=== PATIENT | female | born 1975 | race American Indian/Alaskan Native ===

== ENCOUNTER → 2018-10-24 | Outpatient (CLI) | payer OTHER ==
[~2018-10-24] MED LIST: ALBU90OI INH; AMOX500 PO; ASPI81EC; Bactrim Ds Tab1 EACH PO; CEPH500 PO; CETI10 PO; CHOL10002 PO; CIPR750 PO; CITA20 PO; CYCL10 PO; Cyclobenzaprine5 MG PO; DIAZ5 PO; Desyrel50 MG; Diflucan150 MG PO; ELET40TA; FENO145 PO; FENO54 PO; FLUC200 PO; GABA300 PO; GLIP10 PO; GLIP5 PO; HYDACE10B PO; HYDACE5 PO; HYDACE7.5 PO; HYDGUAL120 PO; Humalog100 UNIT/3 SC; Humulin R500 UNIT/1 IJ; INSDET100 SQ; INSLI100I; INSR10I; INSULANI; LEVFLO500 PO; LOVA20 PO; MELO7.5; MELO7.5 PO; METCAR500 PO; METF500; METF500 PO; METF500C PO; METPRE4DP PO; MULVITMINE; Monodox100 MG PO; NAPR500 PO; Norco 5-325 Ta1 EACH PO; ONDA4ODT MM; OXYACE10 PO; OXYACE5T PO; OXYACE7.5T PO; PENVK250 PO; PENVK500 PO; PHENA200 PO; PIOG30 PO; PIOG45 PO; PRED20 PO; PREG150 PO; PROC10 PO; PROM25 PO; Percocet 10-321 EACH PO; Percocet 5-3251 EACH PO; Prednisone20 MG PO; RANI150; RANI150 PO; RXCLIN PO; RXOXYACE PO; RXPENVK250 PO; RXSULTRIDS PO; SULTRIDS PO; TIZANIDINE HCL4 MG PO; TOUJEO SOL300 UNIT/1 SC; TOUJEO SOL300 UNIT/1 SQ; TRAM50 PO; TRAZ50 PO; Ultram50 MG PO; Valium5 MG PO; Zofran Odt8 MG SL; Zofran4 MG PO; [UNRECOGNIZED DRUG - REMARK]
[2018-10-24 10:25] LABS: Source, Urine Clean Catch
[2018-10-24 10:59] LABS: Appearance, Urine Clear (Clear); Blood, Urine 2+ (Neg); Color, Urine Yellow (P-Yellow); Glucose Qualitative, Urine Neg (Neg); Ketones, Urine Neg (Neg); Leukocyte Esterase, Urine 3+ (Neg); Nitrite, Urine Pos (Neg); Protein, Urine 1+ (Neg); Specific Gravity, Urine 1.015 (1.003-1.022); Urobilinogen, Urine 1+ (Normal)
[2018-10-24 11:12] LABS: Bilirubin, Urine 1+ (Neg)
[2018-10-24 11:13] LABS: White Blood Cells, Urine 25-50 /hpf (0-5)
[2018-10-24 11:14] LABS: Bacteria Mod /hpf; Squamous Epithelial Cells Mod /hpf (Few)
== END | disposition home or self-care (01) ==
LOC: LAB SHORT 10:23 → LAB 10:23 → LAB FUT 10-24 09:50 → EDSTATUS 10-24 09:50
PROVIDERS: Internal Medicine
DX: N39.0 Urinary tract infection, site not specified (principal)
CPT/HCPCS: 81001; 87077; 87086; 87147; 87186

== ENCOUNTER 2021-12-11 09:48 | Emergency (ER) | payer OTHER ==
[~2021-12-11] VITALS: Ht 162.6 cm; Wt 132.9 kg
[2021-12-11] MEDS ORDERED: CYMBALTA30 M2 PO (11:01)
[2021-12-11] MEDS ORDERED: CARVEDILOL6.25 MG PO (11:01)
[2021-12-11] MEDS ORDERED: PEPCID20 MG PO (11:01)
[2021-12-11] MEDS ORDERED: Norco 7.5-3251 EACH PO (11:02)
[2021-12-11 11:31] LABS: Alanine Aminotransfer (ALT/SGP 41 U/L (12-78); Albumin, Blood 3.7 g/dL (3.4-5.0); Albumin/Globulin Ratio 0.9 (0.8-1.8); Alk Phos 76 U/L (50-136); Anion Gap 5 mmol/L (6-16); Aspartate Aminotrans (AST/SGOT 17 U/L (12-37); Bilirubin, Total 0.5 mg/dL (0.1-1.0); Blood Urea Nitrogen 12 mg/dL (8-24); Bun/Creatinine Ratio 21.7 (12.0-20.0); CO2, Blood 28 mmol/L (21-32); Chloride, Blood 102 mmol/L (98-108); Creatinine, Blood 0.55 mg/dL (0.40-1.00); Globulin, Blood 3.9 g/dL (2.2-4.0); Glomerular Filtration Rate >60 (60-); Glucose, Blood 277 mg/dL (70-99); Potassium, Blood 4.1 mmol/L (3.5-5.5); Sodium, Blood 135 mmol/L (136-145); Total Protein, Blood 7.6 g/dL (6.4-8.2)
== END 2021-12-11 12:33 | disposition home or self-care (01) ==
LOC: ER 09:48
PROVIDERS: Emergency Medicine
DX: I10 Essential (primary) hypertension (principal); E11.40 Type 2 diabetes mellitus with diabetic neuropathy, unspecified; J45.909 Unspecified asthma, uncomplicated; Z88.8 Allergy status to other drugs, medicaments and biological substances; Z79.899 Other long term (current) drug therapy; Z79.84 Long term (current) use of oral hypoglycemic drugs; Z79.891 Long term (current) use of opiate analgesic
CPT/HCPCS: 36415; 80053; 93005; 93010; 99283-25; A9270

== ENCOUNTER 2022-02-17 09:09 | Day surgery (SDC) | payer OTHER ==
[~2022-02-17] VITALS: Ht 162.6 cm; Wt 287.6 kg
[~2022-02-17 09:09] MED LIST changes: +CARVEDILOL6.25 MG PO; +CYMBALTA30 M2 PO; +Norco 7.5-3251 EACH PO; +PEPCID20 MG PO
[2022-02-17] MEDS ORDERED: CELE100 PO (10:23)
--- NOTE | 2022-02-17 12:27 | NUR ---
02/17/22 1227 Janae Carlson MAX, SPIDER, WEDGE, GEL UDNER BELTS AND ARM, SEAT BELTS X 2. POSITION VERIFIED BY SURGEON.
--- NOTE | 2022-02-17 13:42 | NUR ---
02/17/22 1342 PAULO TEMPLETON PT O2 SATS DROPPED TO 85% ON ROOMAIR POST OPERATIVELY. PT GIVEN 3L O2 VIA NASAL CANULA IN STEP DOWN/ EDUACATED AND IMPLEMENTED INCENTIVE SPIROMETER/ DUONEB TREATMENT GIVEN PRIOR TO DC. PT UP TO BATHROOM FOR BM WITH SBA BY CARYN KAUR. PT CHEM BG READING WAS 365 1257 AND REGULAR INSULIN GIVEN 7U SQ BY CARYN KAUR/TCR/ ACO
== END 2022-02-17 14:05 | disposition home or self-care (01) ==
LOC: ORSCSDS 09:09
PROVIDERS: Orthopaedic Surgery
PROC: 0RBK4ZZ Excision of Left Shoulder Joint, Percutaneous Endoscopic Approach (ICD-10-PCS; principal; 2022-02-17 10:45)
DX: M75.112 Incomplete rotator cuff tear or rupture of left shoulder, not specified as traumatic (principal); M75.42 Impingement syndrome of left shoulder; M71.9 Bursopathy, unspecified; M75.22 Bicipital tendinitis, left shoulder; I10 Essential (primary) hypertension; E78.5 Hyperlipidemia, unspecified; E11.9 Type 2 diabetes mellitus without complications; Z87.891 Personal history of nicotine dependence; Z79.84 Long term (current) use of oral hypoglycemic drugs; Z79.899 Other long term (current) drug therapy; E66.01 Morbid (severe) obesity due to excess calories; Z68.42 Body mass index [BMI] 45.0-49.9, adult
CPT/HCPCS: 82947; J0171; J0690; J1100; J1815; J2250; J2370; J2405; J2704; J2765; J3010; J7120

== ENCOUNTER 2025-01-14 12:27 | Inpatient (IN) | payer OTHER ==
[~2025-01-14] VITALS: Ht 162.6 cm; Wt 139.5 kg
[2025-01-14] VITALS (14 sets, daily range): BP systolic 138–176; BP diastolic 77–111
[~2025-01-14 12:27] MED LIST changes: +CELE100 PO
[2025-01-14] MEDS ORDERED: Ondansetron HCl 2 MG / ML 2ML Vial IV ONE (13:15)
[2025-01-14 13:23] LABS: Calcium, Ionized (POC) 1.13 mmol/L (1.10-1.46); Chloride (POC) 100 mmol/L (98-108); Creatinine (POC) 0.7 mg/dL (0.6-1.0); Glucose (ISTAT POC) 258 mg/dL (70-99); Hemoglobin (POC) 15.3 g/dL (12.0-16.0); Potassium (POC) 4.7 mmol/L (3.5-5.5); Sodium (POC) 138 mmol/L (135-148); Total CO2 (POC) 29 mmol/L (21-32)
[2025-01-14 13:23] LABS: BASOPHILS ABSOLUTE AUTO 0.08 K/mm3 (0.00-0.23); BASOPHILS PERCENT AUTO 1 % (0-2); EOSINOPHILS ABSOLUTE AUTO 0.38 K/mm3 (0.00-0.68); EOSINOPHILS PERCENT AUTO 3 % (0-6); Hematocrit 44.2 % (33.0-51.0); Hemoglobin 14.9 g/dL (11.5-16.0); IMMATURE GRAN PERCENT AUTO 1 % (0-1); LYMPHOCYTES ABSOLUTE AUTO 1.89 K/mm3 (0.84-5.20); LYMPHOCYTES PERCENT AUTO 16 % (21-46); MONOCYTES ABSOLUTE AUTO 0.69 K/mm3 (0.16-1.47); MONOCYTES PERCENT AUTO 6 % (4-13); Mean Corpuscular HGB 31.1 pg (26.0-34.0); Mean Corpuscular HGB Conc 33.7 g/dL (31.5-36.5); Mean Corpuscular Volume 92 fL (80-100); Mean Platelet Volume 9.3 fL (9.1-12.4); NEUTROPHILS ABSOLUTE AUTO 8.46 K/mm3 (1.96-9.15); NEUTROPHILS PERCENT AUTO 73 % (41-73); Platelet Count 309 K/mm3 (150-400); RDW Coefficient Variation 12.8 % (11.7-14.2); RDW Standard Deviation 43.2 fL (35.1-46.3); Red Blood Cell Count 4.79 M/mm3 (3.80-5.20)
[2025-01-14] MEDS ORDERED: Heparin Sodium 1000 Units/ML 10ML MDV ONE ×2 (13:31→14:05)
[2025-01-14] MEDS ORDERED: Verapamil HCL 2.5 MG/ML 2ML Injection ONE (13:31)
[2025-01-14] MEDS ORDERED: NS 250 ML IV ONE (13:31)
[2025-01-14] MEDS ORDERED: NS 1,000 ML IV ONE ×2 (13:31→13:33)
[2025-01-14] MEDS ORDERED: FentaNYL Citrate 50 MCG/ML 2 ML Injection ONE (13:32)
[2025-01-14] MEDS ORDERED: Nitroglycerin 2 MG/20 ML BTL ONE (13:32)
[2025-01-14] MEDS ORDERED: Midazolam HCl 1MG / ML 2ML Vial ONE (13:33)
[2025-01-14 13:40] LABS: Albumin, Blood 3.3 g/dL (3.4-5.0); Albumin/Globulin Ratio 0.9 (0.8-1.8); Bilirubin, Total 0.6 mg/dL (0.1-1.0); Bun/Creatinine Ratio 26.7 (12.0-20.0); Calcium, Blood 8.7 mg/dL (8.5-10.1); Creatinine, Blood 0.52 mg/dL (0.40-1.00); Globulin, Blood 3.8 g/dL (2.2-4.0); Potassium, Blood 4.5 mmol/L (3.5-5.5); Total Protein, Blood 7.1 g/dL (6.4-8.2)
[2025-01-14] MEDS ORDERED: Ondansetron HCl 2 MG / ML 2ML Vial ONE (13:44)
[2025-01-14] MEDS ORDERED: FLU VACC TS2024-25(6MOS UP)/PF 45 MCG/0.5 ML SYRINGE IM ONE (13:45)
[2025-01-14] MEDS ORDERED: Ticagrelor 90 MG TABLET PO ONE ×2 (14:40→18:17)
[2025-01-14] MEDS ORDERED: PIOG30 PO (15:23)
[2025-01-14] MEDS ORDERED: DOTTI1 EA18 TD (15:25)
[2025-01-14] MEDS ORDERED: HYDROcodone 7.5-APAP 325 TAB PO PRN (15:45)
[2025-01-14] MEDS ORDERED: Losartan Potassium 25 MG Tab PO SCH (16:00)
[2025-01-14] MEDS ORDERED: DULoxetine HCL 60 MG Capsule DR PO SCH (16:00)
[2025-01-14] MEDS ORDERED: Insulin Human Lispro 100 Units/ML 3ML Syringe SC SCH (16:30)
[2025-01-14] MEDS ORDERED: MetFORMIN HCl 500 mg PO SCH (17:00)
--- NOTE | 2025-01-14 18:09 | NUR ---
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 ALERT AND ORIENTED X4. SBA TRANSFER TO BED. HISTORY OF NEUROPATHY. INTERMIT BACK PAIN, HISTORY OF FIBROMYALGIA. HOME PAIN MEDICATIONS ORDERED. TELE SHOWING SINUS RHYTHM WITH HR 70-80'S. DENIES CHEST PAIN/PRESSURE/PALPITATIONS. SBP 140-160'S. RIGHT RADIAL SITE SOFT AND NONTENDER. THIS RN EDUCATED ON RADIAL PRECAUTIONS. POST VITAL SIGNS STABLE. TR BEING DEFLATED PER ORDERS. NO EDEMA NOTED. IV SALINE LOCKED. ON ROOM AIR, LUNG SOUNDS CLEAR AND DIM IN BASES. DENIES SOB/COUGH. EVEN AND UNLABORED RESPIRATIONS. BOWEL TONES PRESENT DENIES ABDOMINAL PAIN/NAUSEA. ACHS BLOOD SUGARS IN PLACE. UP TO BATHROOM WITH SBA. FAMILY AT BEDSIDE AND UPDATED ON PLAN OF CARE. DR. GOMEZ TO BEDSIDE AND THIS RN PRESENT FOR MD ROUNDING. THIS RN UPDATED DR. GOMEZ ON COMPLETED MED REC.
[2025-01-14] MEDS ORDERED: Aspirin 81 MG Chew PO ONE (18:17)
[2025-01-14] MEDS ORDERED: Heparin Sodium,Porcine 5,000 UNIT/0.5 ML SDV SC ONE (18:17)
--- NOTE | 2025-01-14 20:20 | NUR ---
TR SITE RECOVERED WNL. NO DRAINAGE, SWELLING OR PAIN PRESENT. TEGADERM PLACED OVER SITE FOLLOWED BY ARM BOARD.
[2025-01-14] MEDS ORDERED: HyDROXyzine HCl 25 MG Tab PO ONE (20:33)
[2025-01-14] MEDS ORDERED: Metoprolol Tartrate 25 MG Tab PO SCH (21:00)
[2025-01-14] MEDS ORDERED: Atorvastatin 40 MG Tab PO SCH (21:00)
[2025-01-14] MEDS ORDERED: GlipiZIDE 5 MG Tab PO SCH (21:00)
[2025-01-14] MEDS ORDERED: Famotidine 20 MG Tab PO SCH (21:00)
[2025-01-14] MEDS ORDERED: Ticagrelor 90 MG TABLET PO SCH (21:00)
--- NOTE | 2025-01-15 01:15 | NUR ---
SHIFT SUMMARY PT HAD SOME COMPLAINTS WITH ANXIETY, ATARAX GIVEN WITH GOOD EFFECT PER PT. PT HAD A SHORT COMPLAINT OF CHEST PAIN THAT RESOLVED WITHIN A FEW MINUTES. EKG COMPLETED. NO ST ELEVATIONS SEEN. RADIAL SITE STIL CDI.
[2025-01-15 03:14] VITALS: BP 143/73
[2025-01-15 04:32] LABS: Anion Gap 8 mmol/L (3-11); Blood Urea Nitrogen 18 mg/dL (8-24); Bun/Creatinine Ratio 33.8 (12.0-20.0); CHOL/HDL RATIO 4.4; CO2, Blood 28 mmol/L (21-32); Calcium, Blood 8.8 mg/dL (8.5-10.1); Chloride, Blood 103 mmol/L (98-108); Cholesterol 159 mg/dL (50-200); Creatinine, Blood 0.53 mg/dL (0.40-1.00); Glomerular Filtration Rate 113 (60-); Glucose, Blood 183 mg/dL (70-99); HDL Cholesterol 36 mg/dL (>39); LDL/HDL RATIO 2.5; Low Density Lipoprotein Chol 90 mg/dL (0-110); Potassium, Blood 3.9 mmol/L (3.5-5.5); Sodium, Blood 135 mmol/L (136-145); Triglycerides 163 mg/dL (30-160); Very Low Density Lipoprot Chol 32 mg/dL (6-32)
[2025-01-15 07:37] VITALS: BP 146/80
[2025-01-15] MEDS ORDERED: Heparin Sodium 5000 Units/ML 1ML MDV SC SCH (09:00)
[2025-01-15] MEDS ORDERED: Pioglitazone HCl 15 MG Tab PO SCH (09:00)
[2025-01-15] MEDS ORDERED: Losartan Potassium 50 MG Tab PO SCH (09:00)
[2025-01-15] MEDS ORDERED: Aspirin 81 MG Chew PO SCH (09:00)
[2025-01-15] MEDS ORDERED: AmLODIPine Besylate 5 MG Tab PO SCH (10:00)
[2025-01-15 11:01] VITALS: BP 130/83
[2025-01-15 15:34] VITALS: BP 137/77
--- NOTE | 2025-01-15 17:09 | NUR ---
SHIFT SUMMARY PT REMAINS ALERT AND ORIENTED. BP STABLE. HR REMAINS NSR. PT DENIES CP ALL SHIFT. RIGHT RADIAL SITE WNL. ARM BOARD IN PLACE AND PT FOLLOWING DIRECTIONS WITH RESTRICTIONS. PT TEARFUL THIS SHIFT ABOUT NOT DISCHARGING. PT EDUCATED ON IMPORTANCE OF STAYING AND VERBALIZES UNDERSTANDING. PT INDEPENDENT UP TO THE BATHROOM NEEDED. WILL REPORT OFF TO ONCOMING RN
--- NOTE | 2025-01-15 19:33 | NUR ---
ASSUMPTION OF CARE ASSUMED PT'S CARE AT 1900,BEDSIDE REPORT COMPLETED.PT'S AND OTHER FAMILY MEMBERS AT BEDSIDE.PLAN OF CARE REVIEWED.PT DENIES CHEST PAIN,DENIES GENERALIZED PAIN,DENIES SOB,DENIES NEEDS AT THIS TIME.CALL LIGHT AND PT'S ITEMS WITHIN REACH,WILL CONTINUE TO MONITOR.
[2025-01-15 20:46] VITALS: BP 129/80
[2025-01-15] MEDS ORDERED: Atorvastatin 40 MG Tab PO SCH (21:00)
[2025-01-16 00:18] VITALS: BP 139/81
[2025-01-16 04:20] VITALS: BP 134/74
--- NOTE | 2025-01-16 06:40 | NUR ---
PT HAS BEEN SLEEPING MOST OF THE NIGHT,GETTING UP INDEPENDENTLY TO USE THE BATHROOM.PT'S SPOUSE STAYED THE NIGHT.NO C/O CHEST PAIN/SOB.RIGHT RADIAL ACCESS SITE CDI WITH STRONG PULSE.PT DENIES PAIN,DENIES NEEDS AT THIS TIME.CALL LIGHT AND PT'S ITEMS WITHIN REACH.WILL GIVE REPORT TO DAYSHIFT NURSE FOR CONTINUITY OF CARE.
[2025-01-16 07:20] VITALS: BP 118/87
--- NOTE | 2025-01-16 08:10 | NUR ---
Pt is alert, oriented and frequently saying that she is ready to go home, strongly would like to be discharged. She denies chest pain/pressure/discomfort/dyspnea. Ambulatory frequently around the room, without any sytmptoms. Vital signs are stable. Right wrist arterial access site is WNL. is at the beside. No needs voiced at this time.
[2025-01-16] MEDS ORDERED: ASPI81CH PO (09:51)
[2025-01-16] MEDS ORDERED: AMLODIPINE BES2.5 MG PO (09:51)
[2025-01-16] MEDS ORDERED: LOSA50 PO (09:51)
[2025-01-16] MEDS ORDERED: LIPITOR80 MG PO (09:51)
[2025-01-16] MEDS ORDERED: TICA90TA PO (09:52)
[2025-01-16] MEDS ORDERED: METO25 PO (09:52)
--- NOTE | 2025-01-16 10:37 | NUR ---
1010 Discharge instructions were reviewed with the patient. Medication changes, including new prescriptions, PCP followup and diagnosis and interventional education was completed and provided to the patient in written form. She said that she had no questions. at bedside. Pt declined the wheelchair to private vehicle, stated that she wanted to walk out.
== END 2025-01-16 10:20 | disposition home or self-care (01) | DRG 281 ==
LOC: ER 12:27 → PCU 12:28 → ER 13:19 → PCU 13:19 → ICUE 13:19 → PCU 13:19 → ICUE 14:27 → PCU 14:42 → ICUE 14:42 → PCU 14:42
PROVIDERS: Emergency Medicine; Internal Medicine; ADMIT Internal Medicine
PROC: B2111ZZ Fluoroscopy of Multiple Coronary Arteries using Low Osmolar Contrast (ICD-10-PCS; principal; 2025-01-14)
DX: I21.29 ST elevation (STEMI) myocardial infarction involving other sites (principal); Z68.43 Body mass index [BMI] 50.0-59.9, adult; I10 Essential (primary) hypertension; I25.10 Atherosclerotic heart disease of native coronary artery without angina pectoris; G89.29 Other chronic pain; M54.9 Dorsalgia, unspecified; E78.5 Hyperlipidemia, unspecified; E66.01 Morbid (severe) obesity due to excess calories; E11.65 Type 2 diabetes mellitus with hyperglycemia; Z88.8 Allergy status to other drugs, medicaments and biological substances; Z79.1 Long term (current) use of non-steroidal anti-inflammatories (NSAID); Z79.84 Long term (current) use of oral hypoglycemic drugs; Z79.891 Long term (current) use of opiate analgesic; Z87.891 Personal history of nicotine dependence
CPT/HCPCS: 36415; 76937; 80047; 80048; 80053; 80061; 82947; 84484; 85014; 85025; 93005; 93010; 93306; 93454; 99152; 99153; 99285-25; A9270; C1769; C1887; C1894; J1644; J2250; J2405; J3010; J7030; J7050; Q9967

== ENCOUNTER 2025-01-21 19:24 | Inpatient (IN) | payer OTHER ==
[~2025-01-21] VITALS: Ht 162.6 cm; Wt 125.8 kg
[~2025-01-21 19:24] MED LIST changes: +AMLODIPINE BES2.5 MG PO; +ASPI81CH PO; +DOTTI1 EA18 TD; +Etomidate 2MG / ML 10ML Vial IV ONE; +Ketamine HCl 100 MG / ML 5ML Vial XX ONE; +LIPITOR80 MG PO; +LOSA50 PO; +METO25 PO; +Midazolam HCl 1MG / ML 2ML Vial XX ONE; +Phenylephrine HCl 100 MCG/ML-NS 10MLSYR (1MG/10ML) IV ONE; +Propofol 10mg/ml 20 ml Vial (Procedural) IV ONE; +Rocuronium Bromide 10 MG/ML 5ML Injection IV ONE; +TICA90TA PO
[2025-01-21 19:51] LABS: Base Excess Venous -1.8 mmol/L; Bicarbonate Venous 22.2 mmol/L (24.0-30.0); PCO2 Venous 48.9 mmHg (38-42); pH Blood Venous 7.31 (7.34-7.37)
[2025-01-21 20:03] LABS: Hematocrit 44.9 % (33.0-51.0); Mean Corpuscular HGB 30.7 pg (26.0-34.0); Mean Corpuscular HGB Conc 35.6 g/dL (31.5-36.5); Mean Corpuscular Volume 86 fL (80-100); Mean Platelet Volume 9.7 fL (9.1-12.4); Platelet Count 301 K/mm3 (150-400); RDW Coefficient Variation 12.8 % (11.7-14.2); RDW Standard Deviation 40.5 fL (35.1-46.3); Red Blood Cell Count 5.22 M/mm3 (3.80-5.20); White Blood Cell Count 11.37 K/mm3 (4.00-11.30)
[2025-01-21] MEDS ORDERED: CefTRIAXone Sodium 1,000 MG in NS 100 ML IV ONE (20:05)
[2025-01-21] MEDS ORDERED: Azithromycin 500 MG in NS 250 ML IV ONE (20:05)
[2025-01-21 20:19] LABS: D-Dimer, Quantitative 2.69 mg/L FEU (0.00-0.52); International Normalized Ratio 1.12; Prothrombin Time Results 11.9 Sec (9.7-11.5)
[2025-01-21 20:20] LABS: Albumin, Blood 2.6 g/dL (3.4-5.0); Albumin/Globulin Ratio 0.5 (0.8-1.8); Bilirubin, Total 0.9 mg/dL (0.1-1.0); Bun/Creatinine Ratio 26.9 (12.0-20.0); Calcium, Blood 8.1 mg/dL (8.5-10.1); Creatinine, Blood 0.93 mg/dL (0.40-1.00); Globulin, Blood 4.9 g/dL (2.2-4.0); Potassium, Blood 3.3 mmol/L (3.5-5.5); Total Protein, Blood 7.5 g/dL (6.4-8.2)
[2025-01-21 20:23] LABS: BAND PERCENT MAN 35 % (0-8); BASOPHILS PERCENT MAN 0 % (0-2); EOSINOPHILS PERCENT MAN 0 % (0-6); LYMPHOCYTES % ATYPICAL MANUAL 1 % (0-0); LYMPHOCYTES ABSOLUTE MAN 0.56 K/mm3 (0.84-5.20); LYMPHOCYTES PERCENT MAN 4 % (21-46); MONOCYTES ABSOLUTE MAN 0.79 K/mm3 (0.16-1.47); MONOCYTES PERCENT MAN 7 % (4-13); SEG NEUTROPHILS PERCENT MAN 53 % (41-73); TOTAL CELLS COUNTED 100
[2025-01-21 20:32] LABS: Influenza B, PCR NEGATIVE (NEGATIVE); Resp Syncytial Virus, PCR NEGATIVE (NEGATIVE); SARS-Cov-2 (COVID-19) PCR, MMC NEGATIVE (NEGATIVE)
[2025-01-21] MEDS ORDERED: Ondansetron HCl 2 MG / ML 2ML Vial IV ONE (20:40)
[2025-01-21] MEDS ORDERED: Lactated Ringer's 1,000 ML IV ONE (20:55)
[2025-01-21] MEDS ORDERED: NS 1,000 ML IV SCH (21:25)
[2025-01-21] MEDS ORDERED: Potassium Chloride 40 MEQ in NS 250 ML IV ONE (21:30)
[2025-01-21] MEDS ORDERED: HYDROcodone 7.5-APAP 325 TAB PO PRN (21:30)
[2025-01-21] MEDS ORDERED: FLU VACC TS2024-25(6MOS UP)/PF 45 MCG/0.5 ML SYRINGE IM ONE (21:30)
[2025-01-21] MEDS ORDERED: Insulin Glargine-Yfgn 100 Unit/mL 3 ML SYR SC STA (21:37)
[2025-01-21] MEDS ORDERED: NS 1,000 ML IV ONE (21:45)
[2025-01-21] MEDS ORDERED: Lactobacil 2-S.Thermo-Bifido 1 1 Cap PO SCH (22:00)
[2025-01-21] MEDS ORDERED: Oseltamivir Phosphate 75 MG Cap PO SCH (22:00)
[2025-01-21] MEDS ORDERED: MethylPREDNISolone Sod Succ 125 MG Vial IV SCH (22:00)
[2025-01-21] MEDS ORDERED: LORazepam 2 MG/ML 1ML Injection IV ONE (22:05)
[2025-01-21] MEDS ORDERED: Furosemide 10 MG/ML 10ML Vial IV ONE (22:50)
[2025-01-21] MEDS ORDERED: dexmedeTOMIDine 100 ML IV SCH (22:55)
[2025-01-21 23:10] LABS: Base Excess Venous -0.2 mmol/L; Bicarbonate Venous 21.9 mmol/L (24.0-30.0); PCO2 Venous 64.4 mmHg (38-42); pH Blood Venous 7.24 (7.34-7.37)
[2025-01-22] VITALS (88 sets, daily range): BP systolic 85–184; BP diastolic 52–109
[2025-01-22] MEDS ORDERED: propofoL 100 ML IV PRN (01:15)
[2025-01-22] MEDS ORDERED: propofoL 100 ML IV ONE (01:16)
[2025-01-22 01:33] LABS: Source, Urine Foley catheter
[2025-01-22 01:57] LABS: Appearance, Urine Hazy (Clear); Bilirubin, Urine Neg (Neg); Blood, Urine 5+ (Neg); Color, Urine Yellow (P-Yellow); Glucose Qualitative, Urine 4+ (Neg); Ketones, Urine Neg (Neg); Leukocyte Esterase, Urine Neg (Neg); Nitrite, Urine Pos (Neg); Protein, Urine 4+ (Neg); Urobilinogen, Urine NORM (Normal)
[2025-01-22 02:14] LABS: Amorphous Mod (0-Heavy); Bacteria Mod /hpf; Red Blood Cells, Urine 0-2 /hpf (0-2); Squamous Epithelial Cells Few /hpf (Few); White Blood Cells, Urine 0-2 /hpf (0-5)
[2025-01-22 02:18] LABS: Hematocrit 44.2 % (33.0-51.0); Hemoglobin 15.4 g/dL (11.5-16.0); Mean Corpuscular HGB 30.7 pg (26.0-34.0); Mean Corpuscular HGB Conc 34.8 g/dL (31.5-36.5); Mean Corpuscular Volume 88 fL (80-100); Mean Platelet Volume 9.6 fL (9.1-12.4); Platelet Count 299 K/mm3 (150-400); RDW Coefficient Variation 12.9 % (11.7-14.2); RDW Standard Deviation 42.2 fL (35.1-46.3); Red Blood Cell Count 5.01 M/mm3 (3.80-5.20); White Blood Cell Count 5.37 K/mm3 (4.00-11.30)
[2025-01-22 02:35] LABS: Bun/Creatinine Ratio 22.3 (12.0-20.0); Calcium, Blood 7.9 mg/dL (8.5-10.1); Creatinine, Blood 1.21 mg/dL (0.40-1.00); Potassium, Blood 3.3 mmol/L (3.5-5.5)
[2025-01-22 03:36] LABS: PCO2 Arterial 58.9 mmHg (35-45); PO2 Arterial 62.1 mmHg (80-100); pH Blood Arterial 7.25 (7.35-7.45)
[2025-01-22] MEDS ORDERED: Hydrogen Peroxide 1.5 % Solution MT SCH (04:00)
[2025-01-22] MEDS ORDERED: Acetaminophen 325 MG TABLET PO PRN (05:05)
[2025-01-22] MEDS ORDERED: Piperacillin/Tazobactam Sod 4.5 GM in NS 100 ML IV SCH (05:52)
[2025-01-22] MEDS ORDERED: Vancomycin HCL 2,500 MG in NS 500 ML IV ONE (06:05)
[2025-01-22] MEDS ORDERED: Insulin Human Lispro 100 Units/ML 3ML Syringe SC SCH ×3 (07:30)
[2025-01-22] MEDS ORDERED: Cetylpyridinium Chloride 1 EA MISC MT SCH (08:00)
--- NOTE | 2025-01-22 08:12 | NUR ---
START OF SHIFT THIS NURSE ASSUMED CARE AT APPROXIMATELY 0700. PT IS SEDATED AND INTUBATED. AND SON CAME TO BEDSIDE AND REPORTED NO ONE CALL OR UPDATED ON THE ESCELATION OF CARE. FAMILY UPDATED ON PT CONDITION AND NAME AND NUMBERS WRITTEN ON THE BOARD FOR LAKESHIA ( [phone]) AND SON (ROBERTO [phone]). FAMILY REPORTED PT HAD BELONGINGS AND PHONE DURING ADMISSION. THIS NURSE CALLED ER AND THEY REPORTED TO BELONGINGS, NO BELONGINGS SEEN IN ROOM DURING START OF SHIFT. PT CURRENTLY INTUBATED AND SEDATED ON PROPOFOL. PT FEBRILE WITH A TEMP OF 103 AT THE START OF SHIFT. WILL CONTINUE WITH THE PLAN OF CARE.
[2025-01-22] MEDS ORDERED: Enoxaparin 40 MG/0.4 ML SYR SC SCH (09:00)
[2025-01-22] MEDS ORDERED: AmLODIPine Besylate 5 MG Tab PO SCH (09:00)
[2025-01-22] MEDS ORDERED: Atorvastatin 40 MG Tab PO SCH (09:00)
[2025-01-22] MEDS ORDERED: DULoxetine HCL 60 MG Capsule DR PO SCH (09:00)
[2025-01-22] MEDS ORDERED: Aspirin 81 MG Chew PO SCH (09:00)
[2025-01-22] MEDS ORDERED: Losartan Potassium 50 MG Tab PO SCH (09:00)
[2025-01-22] MEDS ORDERED: Insulin Glargine-Yfgn 100 Unit/mL 3 ML SYR SC SCH ×2 (09:00→21:00)
[2025-01-22] MEDS ORDERED: Metoprolol Tartrate 25 MG Tab PO SCH (09:00)
[2025-01-22] MEDS ORDERED: FentaNYL Citrate 50 MCG/ML 2 ML Injection ONE (10:12)
[2025-01-22] MEDS ORDERED: FentaNYL Citrate 50 MCG/ML 2 ML Injection IV PRN (10:25)
[2025-01-22] MEDS ORDERED: Midazolam HCl 1MG / ML 2ML Vial IV PRN (10:55)
[2025-01-22] MEDS ORDERED: Albuterol 2.5 MG/3 ML VIAL INH PRN (10:55)
[2025-01-22] MEDS ORDERED: Ipratropium/Albuterol SulF 2.5-0.5MG/3 ML Amp INH SCH (10:55)
[2025-01-22] MEDS ORDERED: Lactated Ringer's 500 ML IV SCH (11:00)
--- NOTE | 2025-01-22 11:04 | NUR ---
PERSONAL BELONGINGS DAUGHTER FOUND PT PHONE AND PERSONAL BELONGINGS BAG. DAUGHTER IS ALSO TAKING JEWELRY HOME SUCH RINGS AND EARRINGS.
[2025-01-22 11:11] LABS: Albumin, Blood 1.9 g/dL (3.4-5.0); Albumin/Globulin Ratio 0.5 (0.8-1.8); Bun/Creatinine Ratio 16.7 (12.0-20.0); Calcium, Blood 7.4 mg/dL (8.5-10.1); Creatinine, Blood 1.92 mg/dL (0.40-1.00); Globulin, Blood 3.9 g/dL (2.2-4.0); Magnesium, Blood 1.3 mg/dL (1.6-2.4); Phosphorus, Blood 2.6 mg/dL (2.5-4.9); Potassium, Blood 3.6 mmol/L (3.5-5.5); Total Protein, Blood 5.8 g/dL (6.4-8.2)
[2025-01-22 11:43] LABS: Base Excess Venous -2.7 mmol/L; Bicarbonate Venous 21.7 mmol/L (24.0-30.0); PCO2 Venous 46.7 mmHg (38-42); pH Blood Venous 7.31 (7.34-7.37)
[2025-01-22] MEDS ORDERED: Mag Sulfate 1 GM/D5% 100ML 100 ML IV STA (12:04)
[2025-01-22] MEDS ORDERED: Azithromycin 250 MG Tab PO SCH (13:00)
[2025-01-22] MEDS ORDERED: CefTRIAXone Sodium 1,000 MG in NS 100 ML IV SCH (13:00)
[2025-01-22] MEDS ORDERED: Magnesium Sulf 2 GM/Water 50ML 50 ML IV ONE (15:30)
[2025-01-22] MEDS ORDERED: Lactated Ringer's 500 ML IV ONE (17:50)
[2025-01-22] MEDS ORDERED: Insulin Regular 100 UNIT/ML 10ML Vial SC SCH (18:00)
--- NOTE | 2025-01-22 18:25 | NUR ---
END OF SHIFT SUMMARY PT REMAINS INTUBATED AND SEDATED ON PROPOFOL AND LEVO. PT REQUIRED PUSHES OF FENTANYL AND VERSED FOR SEDATION D/T COUGHING AND NOT TOLERATING VENTILATOR. PT STARTS BELLY COUGHING WITH ANY PHYSICAL STIMULI. PT UOP HAS CONTINUED TO BE LOW ABOUT 10ML/HR. DR. RIVERA AWARE, A TOTAL OF 1L BOLUS OF LR WAS GIVEN TODAY WITH NO INCREASE IN UOP. BLADDER SCAN WAS PERFORMED AND 145ML WERE RECORDED. PT INLINE SECRETION HAS ALSO SHIFTED FROM A PINK/JORGE TO PINK. FAMILY WAS UPDATED THROUGHOUT THE DAY. WILL CONTINUE WITH THE PLAN OF CARE.
[2025-01-22] MEDS ORDERED: Vancomycin HCL 1,000 MG in NS 250 ML IV SCH (19:00)
[2025-01-22] MEDS ORDERED: Famotidine 20 MG Tab PO SCH (21:00)
[2025-01-23] VITALS (89 sets, daily range): BP systolic 78–140; BP diastolic 48–78
[2025-01-23] MEDS ORDERED: NS 1,000 ML IR ONE (03:00)
[2025-01-23 03:40] LABS: Hematocrit 33.6 % (33.0-51.0); Hemoglobin 11.7 g/dL (11.5-16.0); Mean Corpuscular HGB 30.8 pg (26.0-34.0); Mean Corpuscular HGB Conc 34.8 g/dL (31.5-36.5); Mean Corpuscular Volume 88 fL (80-100); Mean Platelet Volume 9.7 fL (9.1-12.4); Platelet Count 300 K/mm3 (150-400); RDW Coefficient Variation 13.3 % (11.7-14.2); RDW Standard Deviation 43.6 fL (35.1-46.3); White Blood Cell Count 7.61 K/mm3 (4.00-11.30)
[2025-01-23 04:12] LABS: Albumin, Blood 1.5 g/dL (3.4-5.0); Albumin/Globulin Ratio 0.4 (0.8-1.8); Bilirubin, Total 0.7 mg/dL (0.1-1.0); Bun/Creatinine Ratio 13.4 (12.0-20.0); Calcium, Blood 7.1 mg/dL (8.5-10.1); Creatinine, Blood 2.98 mg/dL (0.40-1.00); Globulin, Blood 3.8 g/dL (2.2-4.0); Potassium, Blood 3.1 mmol/L (3.5-5.5); Total Protein, Blood 5.3 g/dL (6.4-8.2)
[2025-01-23 04:20] LABS: BAND PERCENT MAN 32 % (0-8); BASOPHILS ABSOLUTE MAN 0.07 K/mm3 (0.00-0.23); BASOPHILS PERCENT MAN 1 % (0-2); EOSINOPHILS PERCENT MAN 0 % (0-6); LYMPHOCYTES ABSOLUTE MAN 0.83 K/mm3 (0.84-5.20); LYMPHOCYTES PERCENT MAN 11 % (21-46); MONOCYTES ABSOLUTE MAN 0.22 K/mm3 (0.16-1.47); MONOCYTES PERCENT MAN 3 % (4-13); NEUTROPHILS ABSOLUTE MAN 6.46 K/mm3 (1.96-9.15); SEG NEUTROPHILS PERCENT MAN 53 % (41-73); TOTAL CELLS COUNTED 100
--- NOTE | 2025-01-23 05:57 | NUR ---
SHIFT SUMMARY PT HAS TOLERATED SHIFT WITH NO CHANGES IN STATUS. PT REACTIVE TO PAINFUL STIMULI AND SUCTIONING BUT NOT FOLLOWING COMMANDS. PT HAS BEEN ON SAME VENT SETTINGS THROUGHOUT SHIFT. NO CHANGES IN BLOOD PRESSURE OR PULSE. PTs TEMPERATURE HAS CONTINUED TO COME DOWN WITH MEASURES TO KEEP TEMPERATURE DOWN THROUGHOUT SHIFT FROM 101 TO 100.0. URINE OUTPUT HAS STAYED AT APPROXIMATELY 10MLS PER HOUR. WILL CONTINUE TO MONITOR UNTIL REPORT PASSED TO DAY SHIFT TEAM.
[2025-01-23 06:12] LABS: Phosphorus, Blood 2.3 mg/dL (2.5-4.9)
[2025-01-23] MEDS ORDERED: Potassium Phosphate Dibasic 30 MM in Dextrose 5% 500 ML IV ONE (06:25)
--- NOTE | 2025-01-23 10:06 | NUR ---
ASSUMED CARE AT 0700 PT LAYING IN BED SEDATED AND INTUBATED. SHE IS SEDATED WITH PROPOFOL INFUSING AT 45MCG/KG/MIN; RASS -3. VENT SETTINGS AC/VC 22/430/12/80%; PINK/RED/WHITE/CLEAR SECREATIONS FROM ETT. TEMP 100.3 AT SHIFT CHANGE. HR 100-110. SBP 100'S WITH LEVOPHED INFUSING; SEE FLOWSHEET FOR TITRATIONS. OG IN PLACE AND CLAMPED. SHIN IN PLACE WITH SMALL AMOUNT OF URINE OUTPUT. CENTRAL LINE TO RIJ IN PLACE AND PATENT. NS INFUSING AT 75ML/HR. SEE SHIFT ASSESSMENT FOR FULL ASSESSMENT.
[2025-01-23] MEDS ORDERED: Insulin Human Lispro 100 Units/ML 3ML Syringe SC SCH (11:30)
[2025-01-23] MEDS ORDERED: Cefepime HCl 1,000 MG in NS 100 ML IV SCH (12:00)
[2025-01-23] MEDS ORDERED: Multivitamins-Minerals Liquid 15 ML Oral Syringe PT SCH (12:35)
[2025-01-23] MEDS ORDERED: Thiamine HCl 100 MG Tab PT SCH (12:35)
[2025-01-23 12:44] LABS: Bun/Creatinine Ratio 12.1 (12.0-20.0); Calcium, Blood 7.2 mg/dL (8.5-10.1); Creatinine, Blood 3.48 mg/dL (0.40-1.00); Potassium, Blood 3.4 mmol/L (3.5-5.5)
[2025-01-23] MEDS ORDERED: Potassium Chloride 20 MEQ/15 ML UDC PO ONE (13:40)
[2025-01-23] MEDS ORDERED: Piperacillin/Tazobactam Sod 4.5 GM in NS 100 ML IV SCH (14:00)
[2025-01-23] MEDS ORDERED: Piperacillin/Tazobactam Sod 3.375 GM in NS 100 ML IV SCH (14:00)
[2025-01-23] MEDS ORDERED: Albumin Human 50 ML IV ONE (15:15)
[2025-01-23] MEDS ORDERED: Albumin (Human) 12.5gm/250ml 250 ML IV ONE (17:00)
--- NOTE | 2025-01-23 18:08 | NUR ---
END OF SHIFT SUMMARY PT CONT TO BE INTUBATED AND SEDATED. PROPOFOL TITRATED DOWN TO 40MCG/KG/MIN; RASS -3. TEMP IMPROVING, NOW <100. VENT SETTINGS AC/VC 22/430/12/60%; MODERATE AMOUNT OF RED/PINK THICK SECREATIONS FROM ETT. NSR WITH RATE 90-110. LEVOPHED INFUSING AT 5MCG/MIN; SBP 80-120'S. VHP STARTED THIS SHIFT INFUSING VIA OG AT 20ML/HR (GOAL) WITH 30ML WATER FLUSHES Q4HR. SHIN IN PLACE WITH SMALL AMOUNT OF URINE OUTPUT; DR NICOLE SHIN; GIVING ALBUMIN CURRENTLY. CENTRAL LINE TO RIJ PATENT WITH DRESSING CHANGED THIS SHIFT. WILL REPORT TO PM RN WHEN AVAILABLE.
[2025-01-23 19:11] LABS: Creatinine, Blood 3.84 mg/dL (0.40-1.00); Vancomycin, Trough 31.4 ug/mL (5.0-10.0)
[2025-01-23] MEDS ORDERED: Ticagrelor 90 MG TABLET PO SCH (21:00)
[2025-01-23] MEDS ORDERED: Insulin Glargine-Yfgn 100 Unit/mL 3 ML SYR SC SCH (21:00)
[2025-01-24] VITALS (88 sets, daily range): BP systolic 87–154; BP diastolic 51–92
[2025-01-24] MEDS ORDERED: Insulin Human Lispro 100 Units/ML 3ML Syringe SC SCH
[2025-01-24] MEDS ORDERED: D5W-1/2NS 1,000 ML IV SCH (00:50)
[2025-01-24] MEDS ORDERED: Dextrose 50% 50 ML Vial IV ONE (00:50)
--- NOTE | 2025-01-24 00:52 | NUR ---
LOW CBG PT'S LAST TWO CBGs WERE 75 AND 69. DISCUSSED CURRENT STATUS OF PATIENT WITH DR. VERDIN- NEW ORDERS RECEIVED.
[2025-01-24 06:00] LABS: Bun/Creatinine Ratio 10.5 (12.0-20.0); Creatinine, Blood 4.39 mg/dL (0.40-1.00); Phosphorus, Blood 4.1 mg/dL (2.5-4.9); Potassium, Blood 3.2 mmol/L (3.5-5.5)
--- NOTE | 2025-01-24 06:11 | NUR ---
SHIFT SUMMARY NO ACUTE CHANGES DURING NOC. REMAINS INTUBATED- AC/VC 22/430/12/60%. SEDATED WITH PROPOFOL AT 40MCG/KG/MIN. RASS -2 TO -3. BILATERAL SOFT WRIST RESTRAINTS IN PLACE TO PREVENT SELF-EXTUBATION. MONITOR SHOWS ST, RATE 100-120s. LEVOPHED TITRATED DOWN AND OFF T/O SHIFT- MAP >65. AFEBRILE. TUBE FEEDING VHP INFUSING AT GOAL RATE OF 20MLs/HR. 30MLs H20 Q4H. NO SIGNS OF GI INTOLERANCE NOTED. SHIN PATENT AND DRAINING TO GRAVITY- 140MLs TOTAL. STARTED D5 1/2 NS EARLIER IN SHIFT FOR LOW BLOOD GLUCOSES- TURNED OFF THIS MORNING WHEN GLUCOSE WAS >200. LORI CL PATENT, DRSG D/I. KAE POWERGLIDE PATENT WITH DRSG D/I. PLAN OF CARE ONGOING. WILL REPORT TO ONCOMING RN WHEN AVAILABLE.
--- NOTE | 2025-01-24 06:45 | NUR ---
CBG/IVF WHEN DRAWING AM LABS FROM [facility], GLUCOSE WAS CHECKED WITH SAMPLE ON GLUCOMETER. RESULT WAS 236 SO D5 1/2 NS WAS STOPPED. ONCE AM LABS CAME BACK, IT WAS NOTED THAT GLUCOSE WAS 113. RECHECK DONE AT 0641 WAS 98- D5 1/2 NS RESTARTED AT THIS TIME. ATTEMPTED CALL TO DR. VERDIN REGARDING AM LABS- NO CALL BACK YET.
[2025-01-24] MEDS ORDERED: CALCIUM GLUC IN NACL, ISO-OSM 50 ML IV ONE (07:15)
[2025-01-24] MEDS ORDERED: Potassium Chloride 40 MEQ in NS 250 ML IV ONE (07:15)
[2025-01-24 07:25] LABS: Vancomycin, Random 28.5 ug/mL
[2025-01-24] MEDS ORDERED: Potassium Chloride 20 MEQ TabCR PO SCH (08:00)
[2025-01-24] MEDS ORDERED: Clarify Drug Order XX ONE (08:05)
--- NOTE | 2025-01-24 08:58 | NUR ---
ASSUMED CARE AT 0700 PT CONT TO BE SEDATED AND INTUBATED. SHE IS SEDATED WITH PROPOFOL INFUSING AT 40MCG/KG/MIN WITH RASS -3; BECOMES RESTLESS WITH PERSONAL CARE. VENT SETTINGS AC/VC 22/430/12/60%; SMALL AMOUNT OF JORGE/PINK SECREATIONS FROM ETT. AFEBRILE. HR 100-110. SBP 100'S WITH MAP 65-75; LEVOPHED ON SB. VHP INFUSING VIA OG AT 20ML/HR (GOAL) WITH 30ML WATER FLUSHES Q4HR. SHIN IN PLACE AND DRAINING SMALL AMOUNT OF GRAVITY. CENTRAL LINE TO RIJ PATENT. SEE ADMISSION ASSESSMENT FOR FULL ASSESSMENT.
[2025-01-24 09:52] LABS: Albumin, Blood 1.6 g/dL (3.4-5.0); Albumin/Globulin Ratio 0.5 (0.8-1.8); Bilirubin, Total 1.1 mg/dL (0.1-1.0); Bun/Creatinine Ratio 10.5 (12.0-20.0); Calcium, Blood 7.1 mg/dL (8.5-10.1); Creatinine, Blood 4.56 mg/dL (0.40-1.00); Globulin, Blood 3.5 g/dL (2.2-4.0); Potassium, Blood 3.3 mmol/L (3.5-5.5); Total Protein, Blood 5.1 g/dL (6.4-8.2)
[2025-01-24] MEDS ORDERED: Albumin (Human) 12.5gm/250ml 250 ML IV ONE (11:55)
[2025-01-24 12:48] LABS: Hematocrit 28.8 % (33.0-51.0); Hemoglobin 10.1 g/dL (11.5-16.0); Mean Corpuscular HGB Conc 35.1 g/dL (31.5-36.5); Mean Corpuscular Volume 88 fL (80-100); Mean Platelet Volume 9.7 fL (9.1-12.4); Platelet Count 314 K/mm3 (150-400); RDW Coefficient Variation 13.7 % (11.7-14.2); RDW Standard Deviation 44.4 fL (35.1-46.3); Red Blood Cell Count 3.26 M/mm3 (3.80-5.20); White Blood Cell Count 9.82 K/mm3 (4.00-11.30)
[2025-01-24 13:18] LABS: BAND PERCENT MAN 3 % (0-8); BASOPHILS PERCENT MAN 0 % (0-2); EOSINOPHILS PERCENT MAN 0 % (0-6); LYMPHOCYTES % ATYPICAL MANUAL 1 % (0-0); LYMPHOCYTES ABSOLUTE MAN 1.37 K/mm3 (0.84-5.20); LYMPHOCYTES PERCENT MAN 13 % (21-46); METAMYELOCYTE ABSOLUTE MAN 0.19 K/mm3 (0.00-0.00); METAMYELOCYTE PERCENT MAN 2 % (0-0); MONOCYTES ABSOLUTE MAN 0.68 K/mm3 (0.16-1.47); MONOCYTES PERCENT MAN 7 % (4-13); NEUTROPHILS ABSOLUTE MAN 7.56 K/mm3 (1.96-9.15); SEG NEUTROPHILS PERCENT MAN 74 % (41-73); TOTAL CELLS COUNTED 100
--- NOTE | 2025-01-24 13:34 | NUR ---
Pt. is intubated and not responsive. Family members are at bedside and welcome my visit. facilitated a life review and considered matters of parul and belief. Listened with supportive empathy and a calming presence. The family welcomed prayer. Prayed for the Pt. The family verbalized graittude for the spiritual care visit and welcomed this process architect to return.
[2025-01-24] MEDS ORDERED: Protein Supplement 30 ML UD PT SCH (14:00)
--- NOTE | 2025-01-24 18:19 | NUR ---
END OF SHIFT SUMMARY NO ACUTE EVENTS DURING THE DAY. SHE CONT TO BE SEDATED WITH PROPOFOL TITRATED DOWN TO 30MCG/KG/MIN FOR RASS OF -3 TO -2; PRN FENTANYL GIVEN ADJUNCT TO SEDATION AND VENT COMPLIENCE. VENT SETTINGS AC/VC 22/430/12/60%; SMALL AMOUNT OF ETT SECREATIONS THIS SHIFT. AFEBRILE. HR 100-110. SBP 120-130'S; MAP 65-80; LEVOPHED ON SB ALL SHIFT. VHP INFUSING VIA OG AT GOAL; ONE BM THIS SHIFT. SHIN IN PLACE WITH MINIMAL OUTPUT. D5 1/2NS INFUSING AT 50ML/HR. SEVERAL FAMILY MEMBERS AT BEDSIDE T/O THE SHIFT AND UPDATED. WAITING FOR DR Camejo TO DARWIN PT. WILL REPORT TO PM RN WHEN AVAILABLE.
[2025-01-24 20:52] LABS: Albumin, Blood 1.6 g/dL (3.4-5.0); Albumin/Globulin Ratio 0.4 (0.8-1.8); Bilirubin, Direct 1.2 mg/dL (0.0-0.3); Bilirubin, Indirect 0.5 mg/dL (0.1-0.7); Bilirubin, Total 1.7 mg/dL (0.1-1.0); Bun/Creatinine Ratio 9.8 (12.0-20.0); Calcium, Blood 7.3 mg/dL (8.5-10.1); Creatinine, Blood 5.01 mg/dL (0.40-1.00); Globulin, Blood 3.8 g/dL (2.2-4.0); Magnesium, Blood 2.1 mg/dL (1.6-2.4); Phosphorus, Blood 4.7 mg/dL (2.5-4.9); Potassium, Blood 3.6 mmol/L (3.5-5.5); Total Protein, Blood 5.4 g/dL (6.4-8.2); Uric Acid, Blood 8.7 mg/dL (2.6-6.0)
[2025-01-24 20:54] LABS: Thyroid Stimulating Hormone 0.107 uIU/mL (0.360-4.800)
[2025-01-24] MEDS ORDERED: Insulin Glargine-Yfgn 100 Unit/mL 3 ML SYR SC SCH (21:00)
[2025-01-24] MEDS ORDERED: Sodium Bicarb 8.4% Inj 150 MEQ in Dextrose 5% 1,000 ML IV SCH (21:15)
[2025-01-24] MEDS ORDERED: Bumetanide 0.25 MG/ML 4ML ViaL IV ONE (21:15)
[2025-01-24] MEDS ORDERED: Albumin (Human) 25gm/100ml 100 ML IV ONE (21:15)
[2025-01-24 21:18] LABS: Base Excess Venous -9.6 mmol/L; Bicarbonate Venous 17.2 mmol/L (24.0-30.0); PCO2 Venous 36.2 mmHg (38-42); pH Blood Venous 7.28 (7.34-7.37)
[2025-01-25] VITALS (93 sets, daily range): BP systolic 106–171; BP diastolic 56–107
[2025-01-25] MEDS ORDERED: Albumin (Human) 25gm/100ml 100 ML IV ONE (00:05)
[2025-01-25] MEDS ORDERED: Bumetanide 0.25 MG/ML 10ML Vial IV ONE (01:00)
[2025-01-25 05:00] LABS: Albumin, Blood 2.1 g/dL (3.4-5.0); Anion Gap 16 mmol/L (3-11); Blood Urea Nitrogen 51 mg/dL (8-24); CO2, Blood 17 mmol/L (21-32); Chloride, Blood 95 mmol/L (98-108); Glomerular Filtration Rate 10 (60-); Glucose, Blood 150 mg/dL (70-99); Phosphorus, Blood 4.8 mg/dL (2.5-4.9); Sodium, Blood 124 mmol/L (136-145); Vancomycin, Random 25.5 ug/mL
[2025-01-25] MEDS ORDERED: NS 1,000 ML IV SCH (05:30)
--- NOTE | 2025-01-25 06:22 | NUR ---
SHIFT SUMMARY NO ACUTE CHANGES DURING NOC. REMAINS INTUBATED- AC/VC 22/430/12/60%. SEDATED WITH PROPOFOL AT 35MCG/KG/MIN. RASS -2 TO -3. MEDICATED WITH FENTANYL 50MCG IV X 1 DOSE FOR INCREASED COUGHING. BILATERAL SOFT WRIST RESTRAINTS IN PLACE TO PREVENT SELF-EXTUBATION. MONITOR SHOWS NSR, RATE 90s. BP WNL WITH MAP >65. AFEBRILE. TUBE FEEDING VHP INFUSING AT GOAL RATE OF 20MLs/HR. 30MLs H20 Q4H. NO SIGNS OF GI INTOLERANCE NOTED. BUMEX 2MG IV X 1 DOSE AND 4MG X 1 DOSE GIVEN PER ORDER. SHIN PATENT AND DRAINING TO GRAVITY- 169MLs TOTAL. CBG CHECKED Q2H- STABLE. BICARB GTT INFUSING AT 50MLs/HR PER ORDER. NS INFUSING AT 50MLs/HR PER ORDER. LORI CL PATENT, DRSG D/I. KAE CELESTINGLREGINE PATENT WITH DRSG D/I. PLAN OF CARE ONGOING. WILL REPORT TO ONCOMING RN WHEN AVAILABLE.
[2025-01-25] MEDS ORDERED: Clarify Drug Order XX ONE (07:10)
--- NOTE | 2025-01-25 07:15 | NUR ---
Assumed care of pt at 0700 with Christina RUBIN. Bedside report received from Alonso RUBIN. Pt sedated with propofol at 25 mcg/kg/min. RASS -3 but quickly increases to +2 with any care provided. Size 7.5 ETT at expected placement of 24 cm at teeth. ACVC 22/430/12/60%.
[2025-01-25] MEDS ORDERED: NS IV SCH (09:00)
[2025-01-25] MEDS ORDERED: CEFAZOLIN SODIUM IV SCH (09:00)
[2025-01-25 11:18] LABS: Albumin, Blood 2.1 g/dL (3.4-5.0); Anion Gap 20 mmol/L (3-11); Blood Urea Nitrogen 51 mg/dL (8-24); Bun/Creatinine Ratio 9.8 (12.0-20.0); CO2, Blood 16 mmol/L (21-32); Chloride, Blood 93 mmol/L (98-108); Creatinine, Blood 5.18 mg/dL (0.40-1.00); Glomerular Filtration Rate 10 (60-); Glucose, Blood 183 mg/dL (70-99); Phosphorus, Blood 4.7 mg/dL (2.5-4.9); Sodium, Blood 125 mmol/L (136-145)
[2025-01-25] MEDS ORDERED: Sodium Bicarb 8.4% Inj 100 MEQ in Sodium Chloride 0.45% 1,000 ML IV SCH (11:30)
--- NOTE | 2025-01-25 16:59 | NUR ---
[facility] [place]: Sedated with propofol at 40 mcg/kg/min. RASS is -3 but quickly increases to +2 with any care provided. Pt will become agitatated and tachypnic but will not follow commands. Moves all extremities with equal strength and range of motion. Repositioned R/L Q2H to prevent skin breakdown. Bedbath and linen change done today Resp: Lungs coarse in all ojeda. #7.5 ETT at expected placement of 24 cm at teeth. Vent settings ACVC 22/430/12/60%. ETCO2 17-21. SpO2 93%. Cardiac: SR per monitor. BP stable. Trace edema BUE/BLE. GI: OG tube with feed and flush per orders. Rectal tube placed after pt had large incontient void of liquid stool. Skin: Unchanged from initial assessment. Psychosocial: Family updated by this RN and Dr Moya.
[2025-01-25 20:31] LABS: Bun/Creatinine Ratio 9.6 (12.0-20.0); Calcium, Blood 7.1 mg/dL (8.5-10.1); Creatinine, Blood 5.41 mg/dL (0.40-1.00)
--- NOTE | 2025-01-25 21:30 | NUR ---
NOTIFIED DR SANTANA CALLED REGARDING LABS. INCREASED BICARB GTT TO 100 ML/HR
--- NOTE | 2025-01-25 23:17 | NUR ---
ASSUMED CARE ASSESSMENT: ASSUMED CARE AT 1924. PT IS INTUBATED AND LYING BED AND APPEARS TENSE. WHEN LEFT ALONE PT WILL RELAX, BUT WITH PAINFUL STIMULATION OR REPOSITIONING THE PATIENT WILL BECOME TENSE AMMON GITATED AND STARTED COUGHING A LOT. HAS SHIN CATHETER IN PLACE AND 275ML OF YELLOW URINE WAS EMPTIED FROM THE BAG. PT ALSO HAS A RECTAL TUBE THAT WAS PLACED EALIER TODAY. ET TUBE PLACED AND LUNG SOUNDS ARE COARSE BILATERALLY AND RESPIRATORY RATE IN THE 30S, SPO2 >90. HR IN 90S AND SINUS RYTHM. PT HAS PERIPHERAL IV'S IN BOTH ARMS THAT FLUSH WELL BUT UNABLE TO DRAW BLOOD FROM THEM AND HAS A POWERGLIDE IN THE LEFT UPPER ARM THAT FLUSHES WELL. HAS A CENTERAL LINE IN THE IJ, WITH PROPOFOL, BICARB (1/2 NS WITH 2AMPS OF BICARB), AND NS RUNNING THROUGH IT. PT ALSO HAS A OG TUBE IN PLACE. ORAL CARE WAS PERFORMED AND PT WAS REPOSTIONED IN BED WITH 30 DEGREE WEDGES UNDER THEM. LINE AND TUBE PLACED OUT OF THE WAY.
[2025-01-26] VITALS (82 sets, daily range): BP systolic 109–182; BP diastolic 55–90
[2025-01-26 03:55] LABS: Hematocrit 27.1 % (33.0-51.0); Hemoglobin 9.8 g/dL (11.5-16.0)
[2025-01-26 04:12] LABS: Albumin, Blood 1.7 g/dL (3.4-5.0); Anion Gap 17 mmol/L (3-11); Blood Urea Nitrogen 56 mg/dL (8-24); Bun/Creatinine Ratio 10.1 (12.0-20.0); CO2, Blood 18 mmol/L (21-32); Calcium, Blood 6.7 mg/dL (8.5-10.1); Chloride, Blood 93 mmol/L (98-108); Creatinine, Blood 5.57 mg/dL (0.40-1.00); Glomerular Filtration Rate 9 (60-); Glucose, Blood 184 mg/dL (70-99); Phosphorus, Blood 4.9 mg/dL (2.5-4.9); Potassium, Blood 3.9 mmol/L (3.5-5.5); Sodium, Blood 124 mmol/L (136-145); Vancomycin, Random 24.1 ug/mL
--- NOTE | 2025-01-26 04:38 | NUR ---
NOTIFED DR. MAX ARREGUINFIED REGARDING AM LABS AND URINE OUTPUT. NO NEW ORDERS AT THIS TIME.
--- NOTE | 2025-01-26 05:59 | NUR ---
SHIFT SUMMARY: PT WAS GIVEN A BED BATH, GOWN AND LINENS CHANGED. PT REMAINED INTUBATED, FIO2 WAS INCREASED TO 65%. SUCTIONED A MODERATE AMOUNT OF THICK WHITE SECRETIONS VIA ET TUBE. ORAL CARE PERFORMED. MED PRN WITH FENTANYL FOR PAIN COMPLAIANCE. VS REMAINED STABLE AND OFF LEVOPHED. BICARB DRIP INCREASED TO 100ML/HR. TURNED Q2 HOURS. RECTAL TUBE IS DRAINING BROWN LIQUID STOOL. BILATERAL SOFT WRIST RESTRAINTS IN PLACE. REPORT TO ON COMING NURSE, CONTINUE TO MONITOR.
--- NOTE | 2025-01-26 08:30 | NUR ---
ASSUMPTION OF CARE: ASSUMED CARE OF PT AT 0700.PT REMAINS INTUBATED. VENT AC/VC 22/380/. ORAL SUCTION PERFORMED WITH MOD AMOUNT OF YELLOW-KAYKAY SECRETIONS OBSERVED. PT TENSES WITH STIMULATION, STARTS TO COUGH AT TIMES. SBP IN 100S. HR 80-90S. SINUS. LUNGS HAVE CRACKLES IN UPPER LOBES, DIMINISHED AT BASES. SATS 93% BOWEL TONES HYPOACTIVE BUT PRESENT IN ALL QUADRANTS. RECTAL TUBE REMAINS IN PLACE DRAINING LIQUID-LIKE STOOL. TEMP SHIN IN PLACE, PATENT, DRAINING DARK YELLOW URINE. 70ML EMPTIED THIS AM FROM SHIN BAG. PT HAS CENTRAL LINE IN RIJ AND POWERGLIDE IN RAZA. PT HAS PROPOFOL RUNNING AT 45MCG/KG/MIN, SODIUM BICARB RUNNING 100ML/HR, NS AT 50ML/HR, AND VHP AT 20ML/HR. PLAN FOR TODAY TO INSERT DIALYSIS CATH AND GET TX TODAY.
[2025-01-26] MEDS ORDERED: LORazepam 2 MG/ML 1ML Injection IV PRN (10:45)
--- NOTE | 2025-01-26 11:15 | NUR ---
INSERTION OF DIALYSIS PORT DR HERNANDEZ INSERTED DIALYSIS PORT,SEE MD NOTES. PT TOLERATED PROCEDURE WELL. DR HERNANDEZ FLUSHED PORTS W/STERILE FLUSHES, BLOOD RETURN OBSERVED. SITE WNL. CHEST XRAY ORDERED FOR PLACEMENT CONFIRMATION. PLACEMENT CONFIRMED BY DR HERNANDEZ.
--- NOTE | 2025-01-26 11:54 | NUR ---
CONSULTATIVE SALES ASSOCIATE'S IN ROOM FOR PTS TREATMENT.
--- NOTE | 2025-01-26 15:25 | NUR ---
UPDATE DIALYSIS TX COMPLETED. PT TOLERATED WELL. NO BP INTERVENTIONS NEEDED. SBP >100S. O2 SATS 93%. THIS RN SPOKE W/ DR HERNANDEZ VIA PHONE. VERBAL ORDERS GIVEN TO DECREASE FIO2 FROM 65% TO 60%. RT IN ROOM, SETTINGS CHANGED TO FIO2 AT 60%. PT TOLERATING WELL. SATS MAINTAINING AT 93%.
--- NOTE | 2025-01-26 16:41 | NUR ---
pt. is intubated and not responsive. No family are present. Pt. identifies as a woman of parul in her admitting notes. Prayed for the Pt. Will remain available to the Pt. and family.
[2025-01-26] MEDS ORDERED: CeFAZolin Sodium 1,000 MG in NS 50 ML IV SCH (18:00)
--- NOTE | 2025-01-26 18:19 | NUR ---
SHIFT SUMMARY: PT REMAINS INTUBATED. VENT SETTINGS AC/VC 22/380/15/60%. SATS HAVE MAINTAINED IN 90S. RR 30S. ORAL SECRETIONS ARE MODERATE, THICK, YELLOW-KAYKAY. SBP HAS BEEN 120S-140S THIS SHIFT W/HR IN THE 80S-90S.RHYTHM SINUS. PT HAS TEMP SHIN, REMAINS PATENT, DRAINING GISELLE URINE. RECTAL TUBE REMAINS IN PLACE, DRAINING BROWN LIQUID-LIKE STOOL. THIS SHIFT, PT RECEIVED DIALYSIS WITH 2L OUT, TOLERATED WELL. FLUIDS DISCONTINUED BY DR SANTANA THIS AFTERNOON. PT HAS RIJ AND POWERGLIDE IN RAZA. PROPOFOL INFUSING AT 45MCG/KG/MIN. THIS RN WILL CONTINUE TO MONITOR AND REPORT TO ONCOMING RN.
--- NOTE | 2025-01-26 21:02 | NUR ---
ASSUMPTION OF CARE CARE OF PT ASSUMED FOLLOWING REPORT FROM DAY RN. PT VENTILATED AD SEDATED, RASS OF -3. TEMP 99.4. WILL MONITOR. PROPOFOL AT 45. REPORTEDLY PT IS SENSITIVE TO ANYTHING MORE THAN THE MILDEST MOVEMENTS. HR 150 SINUS, BP 154/70 (90). VENT SETTINGS ACVC 22/380/15/60%. LUNGS CLEAR, SLIGHT COARSENESS IN RIGHT LUNG. SECRETIONS YELLOW-BROWN, MEDIUM. TF AT GOAL OF 20, VHP, HYPOACTIVE BOWEL SOUNDS. RECTAL TUBE IN PLACE WITH LIQUID-LIKE BROWN STOOL. WILL CONTINUE PLAN OF CARE.
[2025-01-27] VITALS (57 sets, daily range): BP systolic 96–160; BP diastolic 54–101
[2025-01-27 04:05] LABS: Base Excess Venous -0.4 mmol/L; Bicarbonate Venous 24.3 mmol/L (24.0-30.0); PCO2 Venous 34.4 mmHg (38-42); pH Blood Venous 7.45 (7.34-7.37)
[2025-01-27 04:11] LABS: Hematocrit 28.6 % (33.0-51.0); Hemoglobin 10.1 g/dL (11.5-16.0); Mean Corpuscular HGB 30.4 pg (26.0-34.0); Mean Corpuscular HGB Conc 35.3 g/dL (31.5-36.5); Mean Corpuscular Volume 86 fL (80-100); Mean Platelet Volume 9.8 fL (9.1-12.4); Platelet Count 349 K/mm3 (150-400); RDW Coefficient Variation 13.8 % (11.7-14.2); RDW Standard Deviation 43.8 fL (35.1-46.3); Red Blood Cell Count 3.32 M/mm3 (3.80-5.20); White Blood Cell Count 15.56 K/mm3 (4.00-11.30)
[2025-01-27 04:35] LABS: Albumin, Blood 1.5 g/dL (3.4-5.0); Anion Gap 13 mmol/L (3-11); BAND PERCENT MAN 5 % (0-8); BASOPHILS PERCENT MAN 0 % (0-2); Blood Urea Nitrogen 46 mg/dL (8-24); Bun/Creatinine Ratio 10.4 (12.0-20.0); CO2, Blood 24 mmol/L (21-32); Calcium, Blood 7.1 mg/dL (8.5-10.1); Chloride, Blood 93 mmol/L (98-108); Creatinine, Blood 4.44 mg/dL (0.40-1.00); EOSINOPHILS PERCENT MAN 0 % (0-6); Glomerular Filtration Rate 11 (60-); Glucose, Blood 160 mg/dL (70-99); LYMPHOCYTES ABSOLUTE MAN 1.08 K/mm3 (0.84-5.20); LYMPHOCYTES PERCENT MAN 7 % (21-46); METAMYELOCYTE ABSOLUTE MAN 0.15 K/mm3 (0.00-0.00); METAMYELOCYTE PERCENT MAN 1 % (0-0); MONOCYTES ABSOLUTE MAN 0.62 K/mm3 (0.16-1.47); MONOCYTES PERCENT MAN 4 % (4-13); NEUTROPHILS ABSOLUTE MAN 13.69 K/mm3 (1.96-9.15); Phosphorus, Blood 3.8 mg/dL (2.5-4.9); Potassium, Blood 3.1 mmol/L (3.5-5.5); SEG NEUTROPHILS PERCENT MAN 83 % (41-73); Sodium, Blood 127 mmol/L (136-145); TOTAL CELLS COUNTED 100
[2025-01-27] MEDS ORDERED: Calcium Gluconate 10% 1,000 MG in NS 50 ML IV ONE (05:00)
[2025-01-27] MEDS ORDERED: Potassium Chl 20MEQ/Water100ML 100 ML IV ONE (06:00)
--- NOTE | 2025-01-27 07:47 | NUR ---
SHIFT SUMMARY PT ENDS THE SHIFT SIMILAR TO HOW SHE BEGAN, SEDATED ON 45 OF PROPOFOL AND VENTILATED WITH SETTINGS OF ACVC 22/380/15/60% PRODUCING O2 SATURATION OF 90-93%. SINUS RHYTHM IN THE 80-90'S, WITH STABLE BP. TF AT GOAL OF 20ML/HR AND RECTAL TUBE OUTPUT OF 150 FOR SHIFT (BROWN, LIQUID-LIKE). URINE OUTPUT 25ML/HR FOR SHIFT. POTASSIUM AND CALCIUM BEING REPLACED. DIALYSIS SCHEDULED FOR TODAY. REPORT GIVEN TO ONCOMING RN.
--- NOTE | 2025-01-27 08:00 | NUR ---
ASSUMPTION OF CARE: ASSUMED CARE OF PT AT 0700. PT REMAINS VENTED W/ VENT SETTINGS AC/VC 22/380/15/60. SATS REMAIN IN 90S. LUNGS AUSCULTATED W/CRACKLES IN BILAT UPPER LOBES, DIMINISHED AT BASES. RESPIRATORY RATE 30S. SBP CONTINUES TO BE IN THE 100S. HR 80-90S. TEMP SHIN IN PLACE, PATENT, DRAINING GISELLE-COLORED URINE. RECTAL TUBE REMAINS PATENT, NO LEAKS IDENTIFIED, DRAINING [id number] STOOL. PT HAS RIJ, DIALYSIS ACCESS TO R NECK, AND RAZA POWERGLIDE. INFUSING IS LAST OF HER POTASSIUM AND CALCIUM, ALONG WITH PROPOFOL 45MCG/KG/MIN. NO CONCERNING CHANGES REPORTED BY NOC RN THIS MORNING. PLAN FOR DIALYSIS TX TODAY. THIS RN TO CONTINUE TO MONITOR AND NOTIFY PROVIDER IF ANY CHANGES OR CONCERNS ARISE.
--- NOTE | 2025-01-27 09:41 | NUR ---
UPDATE NOTE: PT FAMILY CAME BY EARLIER THIS MORNING AND SPOKE W/DR. HERNANDEZ. RESPITORY CARE IN ROOM AT THIS TIME W/CEMENT SACK BREAKER LOLLY. PER DR. HERNANDEZ, FIO2 TURNED DOWN TO 55% ON VENT. GOAL TO KEEP O2 SATS 89-90S.
--- NOTE | 2025-01-27 12:28 | NUR ---
DIALYSIS NURSE CALLED TO PT BEDSIDE AFTER RETURNING FROM DIALYSIS TX DUE TO BLEEDING FROM CATHETHER EXIT SITE. PT HAD DRESSING CHANGE X2 WHILE IN DILAYSIS, ONCE ON INITIATION AND AGAIN PRIOR TO SENDING PT BACK TO . STERI STRIPS APPLIED ALONG WITH CLOT DOT AND YVONNE DRESSING, REINFORCED WITH TAPE TO APPLY ADDITION PRESSURE. STITCH ABOVE ACCESS SITE IS WHAT IS CAUSING BLEED THOUGH. CLOTTING OBSERVED AROUND STICH AND LEFT INTACT TO HELP ASSIST MINIMIZING LEAKAGE. POSSIBLE THAT IT WILL REQUIRE AN ADDITIONAL STITCH IN TOP INSERTION SITE. PLEASE CALL DIALYSIS TEAM BACK IF YOU NEED ANY ADDITIONAL ASSITANCE.
--- NOTE | 2025-01-27 13:42 | NUR ---
PT UPDATE: DIALYSIS TX FINISHED AROUND 1330 TODAY. PER LOLLY RUBIN, 3L TAKEN OUT. PT TOLERATED TX WELL. FAMILY & FRIENDS AT BEDSIDE AT THIS TIME.
[2025-01-27 15:45] LABS: COMPLEMENT COMPONENT 3 87 mg/dL (90-180); COMPLEMENT COMPONENT 4 22 mg/dL (10-40)
--- NOTE | 2025-01-27 18:22 | NUR ---
SHIFT SUMMARY: PT REMAINS INTUBATED. SHE GRIMACES AND COUGHS WITH ANY STIMULATION, RR INCREASES AND 02 CONTINUES TO DECREASE WELL. VENT SETTINGS REMAIN AC/VC 22/380/15/55. SATS REMAIN BETWEEN 90-92%. RESPIRATIONS MOSTLY IN 30S. SBP HAS BEEN BETWEEN 100S-140S W/ HR 80S-100S. SINUS-SINUS TACH (SINUS TACH ONLY IN 100S W/STIMULATION). PT REMAINS ON CONTINUOUS VHP OT FEEDINGS, CURRENTLY AT GOAL 20ML/HR. RECTAL TUBE REMAINS IN PLACE, PATENT, DRAINING BROWNISH-LIQUID STOOL. TEMP SHIN IN PLACE, PATENT, DRAINING GISELLE URINE. 70ML OUTPUT IN SHIN THIS SHIFT. PT ALSO RECEIVED DIALYSIS THIS AM W/ 3L OUTPUT. PT HAS RIJ, DIALYSIS CATH TO LEFT OF NECK, AND RAZA POWERGLIDE. INFUSING IN RIJ IS PROPOFOL 45MCG/KG/MIN. THIS RN TO REPORT TO ONCOMING RN.
--- NOTE | 2025-01-27 21:57 | NUR ---
ASSUMPTION OF CARE CARE OF PT ASSUMED FOLLOWING REPORT FROM DAY RN. PT VENTILATED AD SEDATED, RASS OF -3. TEMP 99.6. WILL MONITOR. PROPOFOL AT 45. REPORTEDLY PT IS SENSITIVE TO ANYTHING MORE THAN THE MILDEST MOVEMENTS. HR 105 SINUS, BP 133/69 (87). VENT SETTINGS ACVC 22/380/15/50%- PRODUCING SAT OF 88%, WITHIN CURRENT GOAL. LUNGS COARSE CRACKLES THROUGHOUT. SECRETIONS YELLOW-BROWN, MEDIUM/THICK. TF AT GOAL OF 20, VHP, HYPOACTIVE BOWEL SOUNDS. RECTAL TUBE IN PLACE WITH LIQUID-LIKE BROWN STOOL. WILL CONTINUE AND OPTIMIZE PLAN OF CARE.
[2025-01-28] VITALS (68 sets, daily range): BP systolic 96–162; BP diastolic 55–119
[2025-01-28 03:36] LABS: Hematocrit 30.8 % (33.0-51.0); Hemoglobin 10.9 g/dL (11.5-16.0); Mean Corpuscular HGB 30.7 pg (26.0-34.0); Mean Corpuscular HGB Conc 35.4 g/dL (31.5-36.5); Mean Corpuscular Volume 87 fL (80-100); Mean Platelet Volume 9.8 fL (9.1-12.4); NRBC ABSOLUTE 0.03 K/mm3 (0.00-0.02); NRBC Auto 0.2 /100 WBC (0.0-0.2); Platelet Count 399 K/mm3 (150-400); RDW Standard Deviation 44.6 fL (35.1-46.3); Red Blood Cell Count 3.55 M/mm3 (3.80-5.20); White Blood Cell Count 18.25 K/mm3 (4.00-11.30)
[2025-01-28 03:51] LABS: Albumin, Blood 1.4 g/dL (3.4-5.0); Anion Gap 11 mmol/L (3-11); Blood Urea Nitrogen 39 mg/dL (8-24); Bun/Creatinine Ratio 10.3 (12.0-20.0); CO2, Blood 26 mmol/L (21-32); Calcium, Blood 7.8 mg/dL (8.5-10.1); Chloride, Blood 97 mmol/L (98-108); Creatinine, Blood 3.77 mg/dL (0.40-1.00); Glomerular Filtration Rate 14 (60-); Glucose, Blood 183 mg/dL (70-99); Magnesium, Blood 2.1 mg/dL (1.6-2.4); Phosphorus, Blood 2.7 mg/dL (2.5-4.9); Potassium, Blood 3.3 mmol/L (3.5-5.5); Sodium, Blood 131 mmol/L (136-145)
[2025-01-28 04:12] LABS: BAND PERCENT MAN 13 % (0-8); BASOPHILS PERCENT MAN 0 % (0-2); EOSINOPHILS ABSOLUTE MAN 0.54 K/mm3 (0.00-0.68); EOSINOPHILS PERCENT MAN 3 % (0-6); LYMPHOCYTES ABSOLUTE MAN 0.36 K/mm3 (0.84-5.20); LYMPHOCYTES PERCENT MAN 2 % (21-46); METAMYELOCYTE ABSOLUTE MAN 0.18 K/mm3 (0.00-0.00); METAMYELOCYTE PERCENT MAN 1 % (0-0); MONOCYTES ABSOLUTE MAN 0.54 K/mm3 (0.16-1.47); MONOCYTES PERCENT MAN 3 % (4-13); MYELOCYTE ABSOLUTE MAN 0.18 K/mm3 (0.00-0.00); MYELOCYTE PERCENT MAN 1 % (0-0); NEUTROPHILS ABSOLUTE MAN 16.42 K/mm3 (1.96-9.15); SEG NEUTROPHILS PERCENT MAN 77 % (41-73); TOTAL CELLS COUNTED 100
[2025-01-28] MEDS ORDERED: CALCIUM GLUC IN NACL, ISO-OSM 50 ML IV SCH (04:45)
[2025-01-28] MEDS ORDERED: CALCIUM GLUC IN NACL, ISO-OSM 50 ML IV ONE (04:50)
[2025-01-28] MEDS ORDERED: Potassium Chl 20MEQ/Water100ML 100 ML IV ONE (05:30)
--- NOTE | 2025-01-28 07:00 | NUR ---
ASSUME CARE: I have assumed care of this patient. Upon assumption of care, pt had just received bed bath. SpO2 resting at 85% on 50% FiO2. FiO2 was increased to 60% and RT notified. RASS -3 to -4. PERRLA. Soft wrist bilateral restraints in place.
--- NOTE | 2025-01-28 07:53 | NUR ---
SHIFT SUMMARY PT ENDS THE SHIFT SIMILAR TO HOW SHE BEGAN, SEDATED ON 45 OF PROPOFOL AND VENTILATED WITH SETTINGS OF ACVC 22/380/15/50% PRODUCING O2 SATURATION OF 88-91%. SINUS RHYTHM IN THE 80-90'S, WITH STABLE BP. TF AT GOAL OF 20ML/HR AND RECTAL TUBE OUTPUT UNKNOWN AFTER IT SLIPPED OUT DURING BATH (BROWN, LIQUID-LIKE). URINE OUTPUT 80ML TOTAL FOR SHIFT. POTASSIUM AND CALCIUM BEING REPLACED. REPORT GIVEN TO ONCOMING RN.
[2025-01-28 10:25] LABS: HEPATITIS B SURFACE ANTIBODY <3.10 IU/L
[2025-01-28 10:34] LABS: HEPATITIS B SURFACE ANTIGEN Negative (Negative)
[2025-01-28 11:09] LABS: HBV CORE ANTIBODIES,TOTAL Negative (Negative)
--- NOTE | 2025-01-28 19:25 | NUR ---
SHIFT SUMMARY: Family updated at bedside. 3 liters removed with dialysis. Sedation stopped this morning and pt tolerated fentanyl pushes throughout the day for elevated CPOT scores. Pt open eyes to voice. She appears too weak to localize. Restraints removed.
--- NOTE | 2025-01-28 20:07 | NUR ---
ASSUMPTION OF CARE CARE OF PT ASSUMED FOLLOWING REPORT FROM DAY RN. PT VENTILATED AND SEDATED HAS BEEN OFF SINCE 829, RASS OF -2 WHEN LEFT ALONE. TEMP 97.8. REPORTEDLY PT IS SENSITIVE TO ANYTHING MORE THAN THE MILDEST MOVEMENTS. HR 105 SINUS, BP 129/77 (92) VENT SETTINGS ACVC 22/380/15/65%- PRODUCING SAT OF 91%, WITHIN CURRENT GOAL. LUNGS COARSE CRACKLES ON RIGHT MOSTLY. DEEP SECRETIONS YELLOW-BROWN, MEDIUM/THICK, ORAL SECRETIONS WHITE, THIN. TF AT GOAL OF 20, VHP, HYPOACTIVE BOWEL SOUNDS. RECTAL TUBE IN PLACE WITH LIQUID-LIKE BROWN STOOL- LEAK PRESENT. WILL CONTINUE AND OPTIMIZE PLAN OF CARE.
[2025-01-29] VITALS (58 sets, daily range): BP systolic 100–181; BP diastolic 66–112
[2025-01-29 03:58] LABS: Base Excess Venous 4.9 mmol/L; Bicarbonate Venous 28.3 mmol/L (24.0-30.0); PCO2 Venous 39.5 mmHg (38-42); pH Blood Venous 7.47 (7.34-7.37)
[2025-01-29 04:00] LABS: Hematocrit 32.5 % (33.0-51.0); Hemoglobin 11.3 g/dL (11.5-16.0); Mean Corpuscular HGB 30.5 pg (26.0-34.0); Mean Corpuscular HGB Conc 34.8 g/dL (31.5-36.5); Mean Corpuscular Volume 88 fL (80-100); Mean Platelet Volume 10.2 fL (9.1-12.4); NRBC ABSOLUTE 0.02 K/mm3 (0.00-0.02); NRBC Auto 0.1 /100 WBC (0.0-0.2); Platelet Count 403 K/mm3 (150-400); RDW Standard Deviation 45.8 fL (35.1-46.3); Red Blood Cell Count 3.71 M/mm3 (3.80-5.20); White Blood Cell Count 20.97 K/mm3 (4.00-11.30)
[2025-01-29 04:15] LABS: Albumin, Blood 1.4 g/dL (3.4-5.0); Anion Gap 12 mmol/L (3-11); Blood Urea Nitrogen 40 mg/dL (8-24); Bun/Creatinine Ratio 11.6 (12.0-20.0); CO2, Blood 28 mmol/L (21-32); Calcium, Blood 8.2 mg/dL (8.5-10.1); Chloride, Blood 97 mmol/L (98-108); Creatinine, Blood 3.44 mg/dL (0.40-1.00); Glomerular Filtration Rate 16 (60-); Glucose, Blood 192 mg/dL (70-99); Magnesium, Blood 2.3 mg/dL (1.6-2.4); Phosphorus, Blood 3.2 mg/dL (2.5-4.9); Potassium, Blood 3.8 mmol/L (3.5-5.5); Sodium, Blood 133 mmol/L (136-145)
[2025-01-29 04:18] LABS: BAND PERCENT MAN 4 % (0-8); BASOPHILS PERCENT MAN 0 % (0-2); EOSINOPHILS ABSOLUTE MAN 0.41 K/mm3 (0.00-0.68); EOSINOPHILS PERCENT MAN 2 % (0-6); LYMPHOCYTES ABSOLUTE MAN 1.04 K/mm3 (0.84-5.20); LYMPHOCYTES PERCENT MAN 5 % (21-46); MONOCYTES ABSOLUTE MAN 0.41 K/mm3 (0.16-1.47); MONOCYTES PERCENT MAN 2 % (4-13); NEUTROPHILS ABSOLUTE MAN 19.08 K/mm3 (1.96-9.15); SEG NEUTROPHILS PERCENT MAN 87 % (41-73); TOTAL CELLS COUNTED 100
[2025-01-29] MEDS ORDERED: CALCIUM GLUC IN NACL, ISO-OSM 50 ML IV SCH (05:55)
--- NOTE | 2025-01-29 07:41 | NUR ---
SHIFT SUMMARY PT LYING IN BED, IN NO APPARENT DISTRES, VENTILATED. PT SHOWED NO PURPOSEFUL MOVEMENT DURING SHIFT BUT DID OPEN EYES ON COMMANDS SEVERAL TIMES. CN REFLEXES INTACT, INCLUDING GAG AND CORNEA. PROPOFOL OFF X 24 HOURS AND VENTILATED WITH SETTINGS OF ACVC 22/380/15/60% PRODUCING O2 SATURATION OF 92-94%. SINUS RHYTHM IN THE LOW 100'S, WITH STABLE BP. TF AT GOAL OF 20ML/HR AND RECTAL TUBE OUTPUT UNKNOWN BUT PRESENT- BROWN, LIQUID-LIKE. URINE OUTPUT 80ML TOTAL FOR SHIFT. CALCIUM REPLACED. REPORT GIVEN TO ONCOMING RN. PT SON, SHAYLEE, CALLED AT [address] WORK AND WOULD LIKE TO BE CALLED AFTER 1700 WITH AN UPDATE, IF POSSIBLE. HE WORKS IN [employer] AND IS NOT REACHABLE UNTIL THEN.
--- NOTE | 2025-01-29 18:23 | NUR ---
END OF SHIFT SUMMARY PT REMAINS INTUBATED T/O THE DAY. PROPOFOL STARTED THIS SHIFT FOR VENT COMPLIENCE, RR REACHED 40'S AND DR HERNANDEZ APPROVED STARTING PROPOFOL ALONG WITH GIVING FENTANYL AND ATIVAN PUSHES; RASS -3 OR +1; FENTANYL GIVEN ONCE. MAX TEMP 101.4; PRN TYLENOL GIVEN; ICE PACK AND FAN IN PLACE. VENT SETTINGS AC/VC 22/380/15/50%; NEW SPUTUM STAMPLE SENT. HR 110-120. SBP 110-150'S. VHP INFUSING VIA OG AT GOAL; RECTAL TUBE IN PLACE AND DRAINING TO GRAVITY. SHIN IN PLACE WITH SMALL AMOUNT OF URINE OUTPUT; DIALYSIS CURRENTLY NOW GOING. TRIALYSIS CATH TO [facility] DRESSING C/D/I. CENTRAL LINE TO RIJ PULLED THIS SHIFT; DRESSING C/D/I. POWERGLIDE TO LUE PATENT. SON AND AT BEDSIDE TWICE THIS SHIFT AND GIVEN UPDATES BY DR HERNANDEZ. NEW BLOOD CULTURES SENT THIS SHIFT. WILL REPORT TO PM RN WHEN AVAILABLE.
[2025-01-30] VITALS (90 sets, daily range): BP systolic 107–163; BP diastolic 71–96
[2025-01-30 03:36] LABS: BASOPHILS ABSOLUTE AUTO 0.08 K/mm3 (0.00-0.23); BASOPHILS PERCENT AUTO 0 % (0-2); EOSINOPHILS ABSOLUTE AUTO 0.34 K/mm3 (0.00-0.68); EOSINOPHILS PERCENT AUTO 2 % (0-6); Hematocrit 30.8 % (33.0-51.0); Hemoglobin 10.9 g/dL (11.5-16.0); IMMATURE GRAN ABSOLUTE AUTO 1.39 K/mm3 (0.00-0.10); IMMATURE GRAN PERCENT AUTO 7 % (0-1); LYMPHOCYTES ABSOLUTE AUTO 0.69 K/mm3 (0.84-5.20); LYMPHOCYTES PERCENT AUTO 4 % (21-46); MONOCYTES ABSOLUTE AUTO 0.58 K/mm3 (0.16-1.47); MONOCYTES PERCENT AUTO 3 % (4-13); Mean Corpuscular HGB 31.1 pg (26.0-34.0); Mean Corpuscular HGB Conc 35.4 g/dL (31.5-36.5); Mean Corpuscular Volume 88 fL (80-100); Mean Platelet Volume 10.5 fL (9.1-12.4); NEUTROPHILS ABSOLUTE AUTO 16.76 K/mm3 (1.96-9.15); NEUTROPHILS PERCENT AUTO 85 % (41-73); NRBC ABSOLUTE 0.02 K/mm3 (0.00-0.02); NRBC Auto 0.1 /100 WBC (0.0-0.2); Platelet Count 344 K/mm3 (150-400); RDW Coefficient Variation 14.1 % (11.7-14.2); RDW Standard Deviation 45.2 fL (35.1-46.3); White Blood Cell Count 19.84 K/mm3 (4.00-11.30)
[2025-01-30 03:51] LABS: Albumin, Blood 1.4 g/dL (3.4-5.0); Anion Gap 11 mmol/L (3-11); Blood Urea Nitrogen 46 mg/dL (8-24); CO2, Blood 30 mmol/L (21-32); Calcium, Blood 8.1 mg/dL (8.5-10.1); Chloride, Blood 95 mmol/L (98-108); Creatinine, Blood 3.55 mg/dL (0.40-1.00); Glomerular Filtration Rate 15 (60-); Glucose, Blood 239 mg/dL (70-99); Magnesium, Blood 2.3 mg/dL (1.6-2.4); Phosphorus, Blood 2.8 mg/dL (2.5-4.9); Potassium, Blood 3.7 mmol/L (3.5-5.5); Sodium, Blood 132 mmol/L (136-145)
[2025-01-30 04:11] LABS: BAND PERCENT MAN 7 % (0-8); BASOPHILS PERCENT MAN 0 % (0-2); EOSINOPHILS ABSOLUTE MAN 0.99 K/mm3 (0.00-0.68); EOSINOPHILS PERCENT MAN 5 % (0-6); LYMPHOCYTES ABSOLUTE MAN 0.99 K/mm3 (0.84-5.20); LYMPHOCYTES PERCENT MAN 5 % (21-46); MONOCYTES ABSOLUTE MAN 1.19 K/mm3 (0.16-1.47); MONOCYTES PERCENT MAN 6 % (4-13); MYELOCYTE ABSOLUTE MAN 0.19 K/mm3 (0.00-0.00); MYELOCYTE PERCENT MAN 1 % (0-0); NEUTROPHILS ABSOLUTE MAN 16.46 K/mm3 (1.96-9.15); SEG NEUTROPHILS PERCENT MAN 76 % (41-73); TOTAL CELLS COUNTED 100
--- NOTE | 2025-01-30 05:48 | NUR ---
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 PT REMAINS INTUBATED AND SEDATED, RESPONDING TO PAINFUL STIMULI. PTs BLOOD PRESSURE HAS REMAINED STABLE. NO SIGNIFICANT EVENTS OCCURED OVERNIGHT. WILL CONTINUE TO MONITOR UNTIL REPORT PASSED TO DAY SHIFT TEAM.
[2025-01-30] MEDS ORDERED: LevoFLOXacin 500MG/D5W 100ML 100 ML IV ONE (09:45)
--- NOTE | 2025-01-30 10:45 | NUR ---
ASSUMED CARE AT 0700 PT LAYING IN BED SEDATED AND INTUBATED. SHE IS SEDATED WITH PROPOFOL INFUSING AT 15MCG/KG/MIN; RASS EITHER -3 OR +1. VENT SETTINGS AC/VC 22/390/11/50%; ETT ADVANCED BACK TO 24CM AT UPPER GUM AFTER ASSESSMENT, CHEST XRAY COMPLETED AND DR RIVERA CONFIRMED PLACEMENT. TEMP CLIMBING TO 101; COOLING BLANKET IN PLACE. HR 100-120. BP STABLE. VHP INFUSING VIA OG AT 20ML/HR (GOAL) WITH 30ML WATER FLUSHES Q4HR. RECTAL TUBE IN PLACE AND DRAINING DARK GREEN LIQUID OUTPUT. SHIN IN PLACE AND DRAINING MINIMAL OUTPUT. DIALYSIS OCCURING DURING SHIFT CHANGE; REMOVED 2L. TRIALYSIS CATH TO [facility] IN PLACE WITH DRESSING C/D/I. POWERGLIDE PATENT. LAKESHIA AND SON ROBERTO AT BEDSIDE FOR A SHORT WHILE WITH PLANS TO RETURN. SEE SHIFT ASSESSMENT FOR FULL ASSESSMENT.
[2025-01-30] MEDS ORDERED: Insulin Regular 100 UNIT/ML 10ML Vial SC SCH (12:00)
[2025-01-30] MEDS ORDERED: Protein Supplement 30 ML UD PT SCH (14:00)
[2025-01-30] MEDS ORDERED: MethylPREDNISolone Sod Succ 40 MG VIAL IV ONE (15:20)
[2025-01-30] MEDS ORDERED: Vancomycin HCL 2,000 MG in NS 500 ML IV ONE (15:30)
--- NOTE | 2025-01-30 15:33 | NUR ---
UPDATE PT RASH ON GET BECOMING PROGRESSIVLY WORSE THIS SHIFT; EXPANDING FROM UPPER BACK, DOWN LOWER BACK, BACK OF LEGS, AND WRAPPING AROUND ABD, EXPANDING DOWN HER ARMS. PICTURES TAKEN AND DR RIVERA AT BEDSIDE. DR RIVERA PROVIDED ORDERS TO CHANGE PT ANTIBIOTICS.
--- NOTE | 2025-01-30 18:19 | NUR ---
END OF SHIFT SUMMARY PT CONT TO BE SEDATED AND INTUBATED. SHE IS SEDATED WITH PROPOFOL INFUSING AT 15MCG/KG/MIN; RASS -3 TO +1. VENT SETTINGS AC/VC 22/380/11/55%. TMAX 102.1; TYLENOL GIVEN; COOLING BLANKET AND ICE PACKS IN PLACE. HR 110-120. SBP 110-140. TF INFUSING VIA OG AT INCREASED GOAL OF 25ML/HR; RECTAL TUBE IN PLACE WITH LIQUID OUTPUT. SHIN IN PLACE WITH SMALL AMOUNT OF URINE OUTPUT. SEE PREVIOUS NOTE REGARDING RASH. POWERGLIDE TO LUE PATENT. TRIALYSIS CATH TO [facility] DRESSING C/D/I. WILL REPORT TO PM RN WHEN AVAILABLE.
[2025-01-31] VITALS (121 sets, daily range): BP systolic 104–184; BP diastolic 58–98
[2025-01-31 03:33] LABS: Hematocrit 29.9 % (33.0-51.0); Hemoglobin 10.4 g/dL (11.5-16.0)
[2025-01-31 03:52] LABS: Albumin, Blood 1.5 g/dL (3.4-5.0); Anion Gap 13 mmol/L (3-11); Blood Urea Nitrogen 74 mg/dL (8-24); Bun/Creatinine Ratio 19.3 (12.0-20.0); CO2, Blood 27 mmol/L (21-32); Calcium, Blood 7.9 mg/dL (8.5-10.1); Chloride, Blood 92 mmol/L (98-108); Creatinine, Blood 3.84 mg/dL (0.40-1.00); Glomerular Filtration Rate 14 (60-); Glucose, Blood 413 mg/dL (70-99); Magnesium, Blood 2.4 mg/dL (1.6-2.4); Potassium, Blood 4.7 mmol/L (3.5-5.5); Sodium, Blood 127 mmol/L (136-145); Vancomycin, Random 37.4 ug/mL
--- NOTE | 2025-01-31 06:41 | NUR ---
SHIFT SUMMARY PT HAS TOLERATED SHIFT WITH NO CHANGES IN STATUS. PT REMAINS INTUBATED, SEDATED, RESPONSIVE TO PAINFULS STIMULI, NOT FOLLOWING COMMANDS. PTs TUBE FEED STOPPED AT MIDNIGHT AND OG TUBE WAS PULLED FOR LUIS LATER TODAY. PT IS ALSO NOT FEBRILE AT THIS TIME ALTHOUGH SHE STARTED THE SHIFT FEBRILE. WILL CONTINUE TO MONITOR UNTIL REPORT PASSED TO DAY SHIFT TEAM.
--- NOTE | 2025-01-31 07:38 | NUR ---
ASSUMPTION OF CARE: ASSUMED CARE OF PATIENT. PATIENT SEDATED WITH 15 MCG/KG/MIN. TOLERATING THE VENT AT THIS TIME. VENT SETTINGS AC/VC 22/390/11/60%. SPO2 AT 92%. RR AT 28-30. NO DISTRESS NOTED AT THIS TIME. SBP IN THE 140S-150S. HR IN THE 90S. DARK JORGE URINE IN THE SHIN COLLECTION. RECTAL TUBE IN PLACE WITH DARK BROWN STOOL IN COLLECTION BAG.
[2025-01-31] MEDS ORDERED: LevoFLOXacin 250MG/D5W 50ML 50 ML IV SCH (08:00)
[2025-01-31] MEDS ORDERED: HydrALAZINE HCl 20 MG / ML 1ML Vial IV PRN (08:10)
[2025-01-31] MEDS ORDERED: NS 250 ML IV PRN (08:15)
[2025-01-31] MEDS ORDERED: FentaNYL Citrate 50 MCG/ML 2 ML Injection IV ONE (08:55)
[2025-01-31] MEDS ORDERED: Midazolam HCl 1MG / ML 2ML Vial IV ONE (08:55)
[2025-01-31] MEDS ORDERED: Midazolam HCl 1MG / ML 2ML Vial ONE (08:56)
[2025-01-31 09:24] LABS: Influenza A, PCR POSITIVE (NEGATIVE)
--- NOTE | 2025-01-31 09:24 | NUR ---
LUIS: DR. MOODY, DR. RIVERA AND DR. CARRERO AT [facility] FOR LUIS AT 0905. 0906: 50 FENTANYL GIVEN 0908: 4 MG VERSED GIVEN 0910: 50 FENTANYL GIVEN AND PROPOFOL INCREASED TO 30 MCG/KG/MIN. DIFFICULTY PASSING THE PROBE PASSED THE ORAL CAVITY. 0914: 100 MG ROCURONIUM GIVEN BRONCHOSCOPE AT BEDSIDE TO ASSIST WITH VISUALIZATION. RT MONIQUE AT BEDSIDE TO ASSIST. 0923: 50 MG ROCURONIUM GIVEN VITALS STABLE THROUGHOUT WITH SBP IN THE 120S-130S. HR IN THE 90S-100S. SPO2 95-97%. RR IN THE 22-28. 0925: LUIS PROBE PASSED INTO THE ESOPHAGUS. 0931: LUIS COMPLETED.
[2025-01-31] MEDS ORDERED: Insulin Glargine-Yfgn 100 Unit/mL 3 ML SYR SC ONE (11:30)
[2025-01-31] MEDS ORDERED: Insulin Human Lispro 100 Units/ML 3ML Syringe SC SCH (12:00)
[2025-01-31] MEDS ORDERED: Insulin Regular 100 UNIT/ML 10ML Vial SC SCH (12:00)
[2025-01-31] MEDS ORDERED: Protein Supplement 30 ML UD PO SCH (13:00)
[2025-01-31] MEDS ORDERED: Albumin (Human) 25gm/100ml 100 ML IV SCH (15:45)
--- NOTE | 2025-01-31 18:14 | NUR ---
RESPONSE TO SEDATION INTERRUPTION: STOPPED PROPOFOL GTT AT 16:28 FOR SEDATION INTERRUPTION. PATIENT HAS OPENED HER EYES SLIGHTLY. PATIENT DOES NOT LOOK AT THE RN WITH VERBAL CUES. PATIENT CONTINUES TO WITHDRAW FROM PAIN SHE WAS THIS MORNING. FINDINGS ARE COMPARABLE TO THIS MORNING WHEN PATIENT WAS RECEIVING PROPOFOL OF 15 MCG/KG/MIN. DISCUSSED WITH DR. RIVERA. NEW ORDER FOR RN TO UPDATE HIM OF NEURO STATUS THIS EVENING BETWEEN [phone].
--- NOTE | 2025-01-31 19:33 | NUR ---
SHIFT SUMMARY: NEURO: PATIENT WITHDRAWING FROM PAINFUL STIMULI. PATIENT WILL HALF OPEN EYES AT TIMES UNRELATED TO VERBAL OR PAINFUL STIMULI. PROPOFOL TO STAND BY AT 16:28. NO CHANGES TO NEURO STATUS ONCE STOPPED. SEE NURSE'S NOTE. PATIENT MEDICATED FOR PAIN MULTIPLE TIMES THROUGHOUT THE SHIFT. RESPIRATORY: PATIENT TOLERATING VENT. SETTINGS AC/VC 22/390/11/55% BY THE END OF SHIFT. SPO2 >94%. VOLUMES IN THE 300'S. SMALL AMOUNTS OF WHITE/JORGE THICK SECRETIONS FROM ETT. CARDIAC: PATIENT EXPERIENCED SOME ELEVATED BLOOD PRESSURES THIS AM. THIS RESOLVED WITHOUT REQUIRING ANY PRNS. HR IN THE 90S-100S. BLOOD PRESSURES STABLE WITH MAPS >65. GI/: CONTINUES TO HAVE SMALL AMOUNTS OF TEA COLORED URINE. TOTAL URINE OUTPUT 166 FOR THE SHIFT. 500ML OF DARK BROWN STOOL IN RECTAL COLLECTION BAG. VITAL HP TUBE FEED RESTARTED AFTER LUIS AT 25 ML/HR; 30ML Q4HR FLUSHES. OGT PLACEMENT VERIFIED PRIOR TO RESTARTING PER PROTOCOL. PLACEMENT AT 70CM. PSYCHSOCIAL: PATIENT'S LAKESHIA AND SON ROBERTO AT BEDSIDE A COUPLE TIMES TODAY. THEY ARE CALM AND ENCOURAGING OF THE PATIENT. PER THE SON ROBERTO, THE OTHER SON IS ALLOWED TO RECEIVE UPDATES AND COME VISIT THE PATIENT AT THIS TIME.
--- NOTE | 2025-01-31 20:56 | NUR ---
ASSUMPTION OF CARE CARE OF PT ASSUMED FOLLOWING REPORT FROM DAY RN. PT VENTILATED AND SEDATION HAS BEEN OFF SINCE 1430, RASS OF -2 WHEN LEFT ALONE. TEMP 97.8. REPORTEDLY PT IS SENSITIVE TO ANYTHING MORE THAN THE MILDEST MOVEMENTS. HR 105 SINUS, BP 119/77 (82) VENT SETTINGS ACVC 22/390/11/55%- PRODUCING SAT OF 95%, WITHIN CURRENT GOAL. LUNGS CLEAR AND DIMINISHED. DEEP SECRETIONS YELLOW-BROWN, MEDIUM/THICK, ORAL SECRETIONS WHITE, THIN, WITH MIX OF SCANT BROWN SINCE LUIS. TF AT GOAL OF 20, VHP, HYPOACTIVE BOWEL SOUNDS. RECTAL TUBE IN PLACE WITH LIQUID-LIKE BROWN STOOL- LEAK PRESENT. WILL CONTINUE AND OPTIMIZE PLAN OF CARE.
[2025-01-31] MEDS ORDERED: Insulin Glargine-Yfgn 100 Unit/mL 3 ML SYR SC SCH (21:00)
[2025-01-31] MEDS ORDERED: Protein Supplement 30 ML UD PT SCH (21:00)
[2025-02-01] VITALS (36 sets, daily range): BP systolic 114–167; BP diastolic 63–97
--- NOTE | 2025-02-01 04:05 | NUR ---
UPDATE: PHONE CALL FROM SHAYLEE, SON. SHAYLEE WAS UPDATED ON PT STATUS, INCLUDING CONVERSATION ABOUT THE POTENTIAL FOR TRACHEOSTOMY EARLY NEXT WEEK. THE SAME CONVERSATION WAS HAD BY DR RIVERA WITH THE , LAKESHIA, AND OTHER SON, ROBERTO. THERE APPEARS TO BE CONGRUENT FEELINGS AMONGST THEM ON PROCEEDING DOWN THE TRACHEOSTOMY PATH IF NEEDED.
--- NOTE | 2025-02-01 04:30 | NUR ---
UPDATE: SKIN DURING BATH AT 430, LARGE POPPED BLISTER NOTED JUST INFERIOR TO RIGHT BUTTOCKS, SLIGHTLY MEDIAL. THIS WAS COVERED IN MEPILEX, WAS THE AREA OF HER COCCYX, WHICH WAS NOTED TO BE RED WITH SOME MILD PURPLE. BLANCABILITY WAS NOT TESTED.
[2025-02-01 05:51] LABS: Hematocrit 28.5 % (33.0-51.0); Hemoglobin 9.5 g/dL (11.5-16.0); Mean Corpuscular HGB 30.4 pg (26.0-34.0); Mean Corpuscular HGB Conc 33.3 g/dL (31.5-36.5); Mean Corpuscular Volume 91 fL (80-100); Mean Platelet Volume 10.7 fL (9.1-12.4); Platelet Count 300 K/mm3 (150-400); RDW Coefficient Variation 14.2 % (11.7-14.2); RDW Standard Deviation 47.4 fL (35.1-46.3); Red Blood Cell Count 3.13 M/mm3 (3.80-5.20); White Blood Cell Count 12.48 K/mm3 (4.00-11.30)
[2025-02-01 05:59] LABS: Magnesium, Blood 2.3 mg/dL (1.6-2.4)
[2025-02-01 06:00] LABS: Albumin, Blood 2.2 g/dL (3.4-5.0); Anion Gap 12 mmol/L (3-11); Blood Urea Nitrogen 61 mg/dL (8-24); Bun/Creatinine Ratio 18.2 (12.0-20.0); CO2, Blood 28 mmol/L (21-32); Calcium, Blood 8.1 mg/dL (8.5-10.1); Chloride, Blood 97 mmol/L (98-108); Creatinine, Blood 3.36 mg/dL (0.40-1.00); Glomerular Filtration Rate 16 (60-); Glucose, Blood 283 mg/dL (70-99); Phosphorus, Blood 3.9 mg/dL (2.5-4.9); Potassium, Blood 4.1 mmol/L (3.5-5.5); Sodium, Blood 133 mmol/L (136-145); Vancomycin, Random 27.3 ug/mL
[2025-02-01] MEDS ORDERED: Insulin Human Lispro 100 Units/ML 3ML Syringe SC SCH (06:00)
[2025-02-01 06:14] LABS: BAND PERCENT MAN 4 % (0-8); BASOPHILS PERCENT MAN 0 % (0-2); EOSINOPHILS ABSOLUTE MAN 0.24 K/mm3 (0.00-0.68); EOSINOPHILS PERCENT MAN 2 % (0-6); LYMPHOCYTES ABSOLUTE MAN 0.62 K/mm3 (0.84-5.20); LYMPHOCYTES PERCENT MAN 5 % (21-46); MONOCYTES ABSOLUTE MAN 0.87 K/mm3 (0.16-1.47); MONOCYTES PERCENT MAN 7 % (4-13); MYELOCYTE ABSOLUTE MAN 0.12 K/mm3 (0.00-0.00); MYELOCYTE PERCENT MAN 1 % (0-0); SEG NEUTROPHILS PERCENT MAN 81 % (41-73); TOTAL CELLS COUNTED 100
--- NOTE | 2025-02-01 08:23 | NUR ---
SHIFT SUMMARY PT VENTILATED AND SEDATED ON PROPOFOL 15 WITH PRN FENTANYL PUSHES. RASS OF -3 WHEN LEFT ALONE. TEMP 99.9, UP FROM START OF SHIFT, BUT HAS DROPPED SLIGHTLY FROM TMAX OF 100.0. ONLY TREATMENT WAS FANS. PT WAS SENSITIVE TO ANYTHING MORE THAN THE MILDEST MOVEMENTS. OF NOTE, SHORTLY AFTER ASSESSMENT, A NEUROREASSESSMENT WAS PERFORMED AND THE PT OPENED EYES ON COMMAND AND WEAKLY MOVED BOTH ARMS WHEN ASKED. THE PRESENCE OF AND SON IN ROOM, WHO WERE ENCOURAGING HER, MAY HAVE HELPED. HR 105 SINUS, BP STABLE. VENT SETTINGS ACVC 22/390/11/50%- PRODUCING SAT OF 93%, WITHIN CURRENT GOAL. LUNGS CLEAR AND DIMINISHED. DEEP SECRETIONS YELLOW-BROWN, MEDIUM/THICK, ORAL SECRETIONS WHITE. TF AT GOAL OF 25, VHP, HYPOACTIVE BOWEL SOUNDS. RECTAL TUBE IN PLACE WITH LIQUID-LIKE BROWN STOOL- MINIMAL TO NO LEAK PRESENT. REPORT GIVEN TO ONCOMING DAY RN.
[2025-02-01] MEDS ORDERED: Enoxaparin 30 MG/0.3 ML SYR SC SCH (09:00)
[2025-02-01] MEDS ORDERED: Vitamin B Cmplx/Vit C/Folic Ac 1 Tab PT SCH (09:00)
[2025-02-01] MEDS ORDERED: Insulin Glargine-Yfgn 100 Unit/mL 3 ML SYR SC ONE (10:00)
[2025-02-01] MEDS ORDERED: Heparin Sodium 10,000 Units/ML 1ML MDV SC SCH (16:00)
--- NOTE | 2025-02-01 18:49 | NUR ---
Summary. Pt continues on ventilator. Propofol off most of shift. Pt seems more active in bed, does not follow commands or open eyes. Dialysis completed this afternoon, pt tolerated well. No acute events this shift, see chart for further details.
[2025-02-01] MEDS ORDERED: Protein Supplement 30 ML UD PT SCH (21:00)
[2025-02-01] MEDS ORDERED: Famotidine 20 MG Tab PO SCH (21:00)
[2025-02-02] VITALS (58 sets, daily range): BP systolic 111–178; BP diastolic 8–96
--- NOTE | 2025-02-02 01:47 | NUR ---
ASSUMPTION OF CARE CARE OF PT ASSUMED FOLLOWING REPORT FROM DAY RN. PT VENTILATED AND SEDATION HAS BEEN OFF SINCE 829, RASS OF -2 WHEN LEFT ALONE. TEMP 99.9. REPORTEDLY PT IS SENSITIVE TO ANYTHING MORE THAN THE MILDEST MOVEMENTS. HR 111 SINUS, BP 146/84 (99) VENT SETTINGS ACVC 22/390/10/50%- PRODUCING SAT OF 95% LUNGS CLEAR AND DIMINISHED. DEEP SECRETIONS YELLOW-BROWN, MEDIUM/THICK, ORAL SECRETIONS WHITE. TF AT GOAL OF 25, VHP, HYPOACTIVE BOWEL SOUNDS. RECTAL TUBE IN PLACE WITH LIQUID-LIKE BROWN STOOL. WILL CONTINUE AND OPTIMIZE PLAN OF CARE. FAMILY, AND SON, VISITED FOR FOURTH TIME DURING ASSESSMENT AND WERE GIVEN AN UPDATE.
[2025-02-02] MEDS ORDERED: Acetaminophen 500 MG Tab PT ONE (02:00)
[2025-02-02 04:31] LABS: Hematocrit 30.2 % (33.0-51.0); Hemoglobin 10.1 g/dL (11.5-16.0)
[2025-02-02 04:55] LABS: Albumin, Blood 2.3 g/dL (3.4-5.0); Anion Gap 12 mmol/L (3-11); Blood Urea Nitrogen 75 mg/dL (8-24); Bun/Creatinine Ratio 20.6 (12.0-20.0); CO2, Blood 28 mmol/L (21-32); Calcium, Blood 8.5 mg/dL (8.5-10.1); Chloride, Blood 93 mmol/L (98-108); Creatinine, Blood 3.64 mg/dL (0.40-1.00); Glomerular Filtration Rate 15 (60-); Glucose, Blood 276 mg/dL (70-99); Magnesium, Blood 2.4 mg/dL (1.6-2.4); Sodium, Blood 129 mmol/L (136-145); Vancomycin, Random 22.3 ug/mL
--- NOTE | 2025-02-02 06:58 | NUR ---
SHIFT SUMMARY PT VENTILATED WITH PROPOFOL OFF WITH PRN FENTANYL PUSHES. RASS OF -2 WHEN LEFT ALONE. TEMP 99.9, TMAX OF 100.4. ONE DOSE OF 600MG TYLENOL GIVEN. WHEN AND SON IN ROOM, PT OPENED EYES ON COMMAND AND WEAKLY MOVED BOTH ARMS WHEN ASKED. THE PRESENCE OF AND SON IN ROOM, WHO WERE ENCOURAGING HER, MAY HAVE HELPED. HR 116 SINUS, BP STABLE. VENT SETTINGS ACVC 22/390/10/50%- PRODUCING SAT OF 95% LUNGS CLEAR AND DIMINISHED, RHONCHOROUS ON RIGHT. DEEP SECRETIONS YELLOW-BROWN, MEDIUM/THICK, ORAL SECRETIONS WHITE. TF AT GOAL OF 25, VHP, HYPOACTIVE BOWEL SOUNDS. RECTAL TUBE IN PLACE WITH LIQUID-LIKE BROWN STOOL- MINIMAL TO NO LEAK PRESENT. DR SANTANA SAID PT WILL BE DIALYSED AGAIN TODAY. REPORT GIVEN TO ONCOMING DAY RN.
[2025-02-02] MEDS ORDERED: Insulin Glargine-Yfgn 100 Unit/mL 3 ML SYR SC ONE ×3 (08:00→18:20)
[2025-02-02] MEDS ORDERED: Acetaminophen 160MG / 5ML 10.15 UDC PT PRN (19:35)
[2025-02-02] MEDS ORDERED: Protein Supplement 30 ML UD PT SCH (21:00)
[2025-02-02] MEDS ORDERED: LevoFLOXacin 250MG/D5W 50ML 50 ML IV SCH (21:00)
--- NOTE | 2025-02-02 21:41 | NUR ---
ASSUMPTION OF CARE: ASSUMED CARE AT 1900 AND REPORT RECIEVED FROM DAY SHIFT RN. PT IS INTUBATED AN LYING IN BED, THEY WERE TAKEN OFF OF PROPOFOL THIS MORNING AND HAVE BEEN DOING WELL BUT STILL APPEAR SEDATED AND ONLY RESPONSIVE TO PAIN AND SLIGHT MOVEMENTS. PT'S SHIN CATHETER WAS REMOVED AND THEIR RECTAL TUBE IS STILL IN PLACE. A RECTAL TEMP PROBE WAS PLACED NEXT TO THE RECTAL TUBE. THE PATIENT HAS BEEN TACHY WITH HR IN THE 120'S AND BP MAP IN THE 80'S. THEY HAVE A FEVER OF 104.0 F. SOME REDNESS WAS OBSERVED ON THEIR BUTTOCK AREA WITH POSSIBLE OPEN SORE, IT WAS COVERED WITH A MEPILEX AND PICTURES OF IT WAS PLACED IN CHART. TYLENOL WAS GIVEN FOR THE FEVER AND ICE PACKS WERE PLACED IN ARMPITS. LINES, CORDS, AND TUBES WERE PLACED OUT OF REACH.
--- NOTE | 2025-02-02 22:55 | NUR ---
NOTE PATIENT STILL HAS FEVER WITH TEMPERATURE RISING TO 105F. A COOLING BLANKET HAS BEEN PLACED OVER PATIENT TO HELP REDUCE THEIR FEVER.
[2025-02-02 23:06] LABS: C DIFFICILE DNA NEGATIVE (Negative)
[2025-02-02] MEDS ORDERED: Ibuprofen 100 MG/5 ML 5ML UDC PT PRN (23:25)
--- NOTE | 2025-02-02 23:25 | NUR ---
INCREASED TEMPERATURE DR. ALEX NOTIFIED OF PT'S RECTAL TEMP 105.5F DESPITE COOLING BLANKET, ICE PACKS, AND TYLENOL. NEW ORDERS RECEIVED.
[2025-02-02] MEDS ORDERED: Lactated Ringer's 1,000 ML IV ONE (23:30)
[2025-02-03] VITALS (82 sets, daily range): BP systolic 70–151; BP diastolic 50–85
[2025-02-03 01:16] LABS: Bun/Creatinine Ratio 25.3 (12.0-20.0); Calcium, Blood 7.7 mg/dL (8.5-10.1); Creatinine, Blood 3.48 mg/dL (0.40-1.00); Potassium, Blood 5.3 mmol/L (3.5-5.5)
[2025-02-03] MEDS ORDERED: Insulin Human Regular 100 UNIT in NS 100 ML IV SCH ×2 (01:35→01:45)
[2025-02-03] MEDS ORDERED: Acetaminophen 500 MG Tab PT ONE (02:00)
[2025-02-03 05:41] LABS: Base Excess Venous 1.2 mmol/L; Bicarbonate Venous 24.8 mmol/L (24.0-30.0); PCO2 Venous 42.2 mmHg (38-42)
[2025-02-03 05:51] LABS: BASOPHILS ABSOLUTE AUTO 0.12 K/mm3 (0.00-0.23); BASOPHILS PERCENT AUTO 1 % (0-2); EOSINOPHILS ABSOLUTE AUTO 0.01 K/mm3 (0.00-0.68); EOSINOPHILS PERCENT AUTO 0 % (0-6); Hematocrit 30.8 % (33.0-51.0); Hemoglobin 10.6 g/dL (11.5-16.0); IMMATURE GRAN ABSOLUTE AUTO 0.93 K/mm3 (0.00-0.10); IMMATURE GRAN PERCENT AUTO 4 % (0-1); LYMPHOCYTES ABSOLUTE AUTO 1.44 K/mm3 (0.84-5.20); LYMPHOCYTES PERCENT AUTO 7 % (21-46); MONOCYTES ABSOLUTE AUTO 0.75 K/mm3 (0.16-1.47); MONOCYTES PERCENT AUTO 3 % (4-13); Mean Corpuscular HGB 30.8 pg (26.0-34.0); Mean Corpuscular HGB Conc 34.4 g/dL (31.5-36.5); Mean Corpuscular Volume 90 fL (80-100); NEUTROPHILS ABSOLUTE AUTO 18.76 K/mm3 (1.96-9.15); NEUTROPHILS PERCENT AUTO 85 % (41-73); NRBC ABSOLUTE 0.02 K/mm3 (0.00-0.02); NRBC Auto 0.1 /100 WBC (0.0-0.2); Platelet Count 356 K/mm3 (150-400); RDW Coefficient Variation 13.7 % (11.7-14.2); RDW Standard Deviation 44.3 fL (35.1-46.3); Red Blood Cell Count 3.44 M/mm3 (3.80-5.20); White Blood Cell Count 22.01 K/mm3 (4.00-11.30)
--- NOTE | 2025-02-03 07:05 | NUR ---
SHIFT SUMMARY: PATIENT REMAINED INTUBATED THROUGHT THE SHIFT. THEY CONTUNED TO HAVE A HIGH FEVER THAT PEAKED AT 105.6F, THEIR TEMP IS STILL AROUND 104.2F. THEY RECEIVED ICE PACKS, A COOLING BLANKET, GASTRIC LAVAGE, COLD FLUIDS, AND MEDS TO HELP REDUCE THIER FEVER. A RECTAL THERMOMETER PROBE WAS PLACED. THE PATIENT BECAME HYPERGLYCEMIC, BG IN THE 500S, AND INSULIN DRIP WAS STARTED. THEIR HR HAS IMPROVED BUT THEY ARE STILL TACHY WITH THE HR BEING AROUND 115. THEIR BP HAS DROPPED, SYSTOLIC IN THE 80'S BUT THE MAP HAS REMAINED >65. THE WOUNDS ON THEIR BACKSIDE WAS COVERED WITH MEPILEX, AND THEY STILL HAVE A RASH ON THEIR UPPER BODY. ALL THEIR LINES, TUBES, AND DRAINS WERE PLACED OUT OF THEIR REACH AND CALL LIGHT WAS PLACED WITHIN REACH.
[2025-02-03 07:09] LABS: Magnesium, Blood 2.6 mg/dL (1.6-2.4)
[2025-02-03 08:50] LABS: Alanine Aminotransfer (ALT/SGP 151 U/L (12-78); Albumin, Blood 2.1 g/dL (3.4-5.0); Albumin/Globulin Ratio 0.4 (0.8-1.8); Alk Phos 238 U/L (50-136); Anion Gap 19 mmol/L (3-11); Aspartate Aminotrans (AST/SGOT 1234 U/L (12-37); Bilirubin, Direct 0.6 mg/dL (0.0-0.3); Bilirubin, Indirect 0.5 mg/dL (0.1-0.7); Bilirubin, Total 1.1 mg/dL (0.1-1.0); Blood Urea Nitrogen 94 mg/dL (8-24); Bun/Creatinine Ratio 24.5 (12.0-20.0); CO2, Blood 23 mmol/L (21-32); Calcium, Blood 7.2 mg/dL (8.5-10.1); Chloride, Blood 89 mmol/L (98-108); Creatinine, Blood 3.84 mg/dL (0.40-1.00); Globulin, Blood 5.7 g/dL (2.2-4.0); Glomerular Filtration Rate 14 (60-); Glucose, Blood 423 mg/dL (70-99); Sodium, Blood 125 mmol/L (136-145); Total Protein, Blood 7.8 g/dL (6.4-8.2); Vancomycin, Random 14.6 ug/mL
[2025-02-03 08:58] LABS: Phosphorus, Blood 8.9 mg/dL (2.5-4.9)
[2025-02-03] MEDS ORDERED: Insulin Glargine-Yfgn 100 Unit/mL 3 ML SYR SC SCH (09:00)
[2025-02-03] MEDS ORDERED: Vancomycin HCL 1,000 MG in NS 250 ML IV ONE (09:25)
[2025-02-03] MEDS ORDERED: Albumin (Human) 25gm/100ml 100 ML IV SCH (11:15)
[2025-02-03] MEDS ORDERED: Ipratropium/Albuterol SulF 2.5-0.5MG/3 ML Amp INH PRN (12:35)
[2025-02-03] MEDS ORDERED: Protein Supplement 30 ML UD PT SCH ×2 (14:00→21:00)
--- NOTE | 2025-02-03 18:38 | NUR ---
Summary. Pt continues on the ventilator. Temp down in to normal range this afternoon after using the cooling blanket. PICC placed for central access. Orders obtained to remove trialysis catheter today. Dialysis completed, no fluid removed. Reassessments unchanged. Family updated with all changes. See chart for further details.
--- NOTE | 2025-02-03 23:03 | NUR ---
ASSUMPTION OF CARE: ASSUMED CARE AT START OF SHIFT (1899), REPORT RECIEVED FROM DAY SHIFT RN. PT IS DOING WELL, THEY ARE STILL INTUBATED BUT THE SOFT RESTRAINTS HAVE BEEN REMOVED FROM WRISTS. THEY APPEAR MORE ALERT TODAY, OPENING THEIR EVEYS, TRYING TO MOVE HANDS BUT UNABLE TO FOLLOW COMMANDS. THEY WERE STARTED ON A LEVOPHED DRIP DUE TO HYPOTENSION, SBP IN 140'S MAP>65. THEY RECIEVED DIALYSIS DURING THE DAY AND THEIR DIALYSIS CATHETER WAS PULLED A THE START OF SHIFT. RECTAL TUBE STILL PLACE. LUNG SOUNDS ARE CLEAR BILATERALLY. PIC LINE WAS PLACED IN THE RIGHT ARM. LINES, DRIANS, AND TUBES PLACED OUT OF THE WAY. WILL MICHAEL TO MONITOR.
[2025-02-04] VITALS (48 sets, daily range): BP systolic 88–175; BP diastolic 52–105
[2025-02-04 05:16] LABS: BASOPHILS ABSOLUTE AUTO 0.12 K/mm3 (0.00-0.23); BASOPHILS PERCENT AUTO 0 % (0-2); EOSINOPHILS ABSOLUTE AUTO 0.37 K/mm3 (0.00-0.68); EOSINOPHILS PERCENT AUTO 1 % (0-6); Hematocrit 26.8 % (33.0-51.0); Hemoglobin 9.2 g/dL (11.5-16.0); IMMATURE GRAN ABSOLUTE AUTO 0.52 K/mm3 (0.00-0.10); IMMATURE GRAN PERCENT AUTO 2 % (0-1); LYMPHOCYTES ABSOLUTE AUTO 1.47 K/mm3 (0.84-5.20); LYMPHOCYTES PERCENT AUTO 5 % (21-46); MONOCYTES PERCENT AUTO 3 % (4-13); Mean Corpuscular HGB 31.1 pg (26.0-34.0); Mean Corpuscular HGB Conc 34.3 g/dL (31.5-36.5); Mean Corpuscular Volume 91 fL (80-100); NEUTROPHILS ABSOLUTE AUTO 25.51 K/mm3 (1.96-9.15); NEUTROPHILS PERCENT AUTO 89 % (41-73); Platelet Count 363 K/mm3 (150-400); RDW Coefficient Variation 13.9 % (11.7-14.2); Red Blood Cell Count 2.96 M/mm3 (3.80-5.20); White Blood Cell Count 28.79 K/mm3 (4.00-11.30)
[2025-02-04 05:53] LABS: Alanine Aminotransfer (ALT/SGP 260 U/L (12-78); Albumin, Blood 2.2 g/dL (3.4-5.0); Albumin/Globulin Ratio 0.4 (0.8-1.8); Alk Phos 177 U/L (50-136); Anion Gap 19 mmol/L (3-11); Aspartate Aminotrans (AST/SGOT 1930 U/L (12-37); Bilirubin, Direct 0.5 mg/dL (0.0-0.3); Bilirubin, Indirect 0.4 mg/dL (0.1-0.7); Bilirubin, Total 0.9 mg/dL (0.1-1.0); Blood Urea Nitrogen 101 mg/dL (8-24); Bun/Creatinine Ratio 30.2 (12.0-20.0); CO2, Blood 24 mmol/L (21-32); Calcium, Blood 5.9 mg/dL (8.5-10.1); Chloride, Blood 91 mmol/L (98-108); Creatinine, Blood 3.34 mg/dL (0.40-1.00); Globulin, Blood 5.1 g/dL (2.2-4.0); Glomerular Filtration Rate 16 (60-); Glucose, Blood 197 mg/dL (70-99); Phosphorus, Blood 8.5 mg/dL (2.5-4.9); Potassium, Blood 5.5 mmol/L (3.5-5.5); Sodium, Blood 128 mmol/L (136-145); Total Protein, Blood 7.3 g/dL (6.4-8.2)
[2025-02-04] MEDS ORDERED: CALCIUM GLUC IN NACL, ISO-OSM 50 ML IV ONE (06:30)
--- NOTE | 2025-02-04 06:50 | NUR ---
SHIFT SUMMARY: PATEINT DID WELL THROUGHT OUT THE SHIFT. THE PATIENT SEEMS TO BE MORE ALERT, THEY WILL TRY TO SQUEEZE THEIR HAND AND TRY TO MOVE BUT STILL UNABLE TO FOLLOW COMMANDS.THEY WERE GIVEN A CHG BATH DURING THE NIGHT, THEIR BEDDING AND GOWN WAS CHANGED. THE RECTAL TUBE BAG WAS FULL AND REPLACED WITH A NEW ONE. LEVO WAS REDUCED TO 1MCG. BLOOD GLUCOSE HAS BEEN FLUCTUATING THROUGHOUT NIGHT AND INSULIN DRIP HAS BEEN TIRTRATED. PT STARTED RUNNING A FEVER OF 101.8 AND THEY WERE GIVEN TYLENOL, IBUPROFEN, AND ICE PACKS WERE PLACED ON THEM, TEMP REDUCED TO 101.6. AFTER MORNING LABS THEY HAD A CALCIUM OF 5.9 AND PHOSPORUS OF 8.9, DOC NOTIFIED AND ORDERED CALCIUM GLUCONATE FOR THE PATIENT. THE NEW TUBE FEEDING WAS STARTED. LINES, DRAINS, AND TUBES WERE OUT OF THE WAY AND CALL LIGHT WAS PLACED WITHIN REACH.
[2025-02-04] MEDS ORDERED: Sevelamer Carbonate 2.4 GM / PKT PO SCH (09:10)
[2025-02-04] MEDS ORDERED: Sodium Zirconium Cyclosilicate 10 GM Packet PO SCH (11:25)
[2025-02-04] MEDS ORDERED: Insulin Glargine-Yfgn 100 Unit/mL 3 ML SYR SC SCH (12:00)
[2025-02-04] MEDS ORDERED: Meropenem 500 MG in NS 100 ML IV SCH ×2 (12:00)
--- NOTE | 2025-02-04 18:28 | NUR ---
Summary. Pt continues ventilated, sedation off. Pt continues to very slowly appear more alert, still does not follow commands or make purposeful movements. Insulin infusing still, levophed on at low dose. Cooling blanket currently on for rising temp. No other acute events this shift, see chart for details.
[2025-02-05] VITALS (70 sets, daily range): BP systolic 90–119; BP diastolic 47–64
[2025-02-05 03:31] LABS: BASOPHILS ABSOLUTE AUTO 0.13 K/mm3 (0.00-0.23); BASOPHILS PERCENT AUTO 1 % (0-2); EOSINOPHILS ABSOLUTE AUTO 0.33 K/mm3 (0.00-0.68); EOSINOPHILS PERCENT AUTO 1 % (0-6); Hematocrit 26.6 % (33.0-51.0); IMMATURE GRAN ABSOLUTE AUTO 1.27 K/mm3 (0.00-0.10); IMMATURE GRAN PERCENT AUTO 5 % (0-1); LYMPHOCYTES ABSOLUTE AUTO 1.54 K/mm3 (0.84-5.20); LYMPHOCYTES PERCENT AUTO 6 % (21-46); MONOCYTES ABSOLUTE AUTO 1.02 K/mm3 (0.16-1.47); MONOCYTES PERCENT AUTO 4 % (4-13); Mean Corpuscular HGB 31.1 pg (26.0-34.0); Mean Corpuscular HGB Conc 33.8 g/dL (31.5-36.5); Mean Corpuscular Volume 92 fL (80-100); Mean Platelet Volume 11.1 fL (9.1-12.4); NEUTROPHILS ABSOLUTE AUTO 23.92 K/mm3 (1.96-9.15); NEUTROPHILS PERCENT AUTO 85 % (41-73); NRBC ABSOLUTE 0.06 K/mm3 (0.00-0.02); NRBC Auto 0.2 /100 WBC (0.0-0.2); Platelet Count 392 K/mm3 (150-400); RDW Coefficient Variation 14.3 % (11.7-14.2); RDW Standard Deviation 47.2 fL (35.1-46.3); Red Blood Cell Count 2.89 M/mm3 (3.80-5.20); White Blood Cell Count 28.21 K/mm3 (4.00-11.30)
[2025-02-05 03:47] LABS: Magnesium, Blood 2.7 mg/dL (1.6-2.4)
[2025-02-05 04:12] LABS: Anion Gap 22 mmol/L (3-11); Blood Urea Nitrogen 142 mg/dL (8-24); Bun/Creatinine Ratio 32.2 (12.0-20.0); CO2, Blood 20 mmol/L (21-32); Calcium, Blood <5.0 mg/dL (8.5-10.1); Chloride, Blood 89 mmol/L (98-108); Creatinine, Blood 4.41 mg/dL (0.40-1.00); Glomerular Filtration Rate 12 (60-); Glucose, Blood 224 mg/dL (70-99); Potassium, Blood 5.8 mmol/L (3.5-5.5); Sodium, Blood 125 mmol/L (136-145)
[2025-02-05 04:17] LABS: Phosphorus, Blood 11.6 mg/dL (2.5-4.9)
[2025-02-05] MEDS ORDERED: CALCIUM GLUC IN NACL, ISO-OSM 50 ML IV ONE ×2 (04:25→06:25)
--- NOTE | 2025-02-05 06:12 | NUR ---
SHIFT SUMMARY PATIENT INTUBATED WITH AN 7.5 ET TUBE. VENT SETTINGS AC/VC 22/390/10/45%. PATIENT OPENS EYES AND DOES TRACK WITH EYES A LITTLE BIT. PATEINT DOES NOT OBEY COMMANDS SUCH SQUEEZE HANDS. PATIENT DOES MAKE FACIAL EXPRESSIONS LIKE RAISING EYEBROWS WHEN MOVING HER OR SQUEEZING HER HAND. PATIENT HAS HAD A TEMP OF 102.2 NURSE ICE PACKED HER AXILLARY AREA AND DROPPED TEMPERATURE ON COOLING BLANKET, TEMP DROPPED TO 101.2. PATIENT HAS BEEN IN SINUS TACH IN THE 110'S. PATEINT HAS PICC LINE IN [facility] AND A POWERFLIDE IN [facility]. LEVOPHED RUNNING @ 4 AND INSULIN RUNNING @ 7U.TUBE FEEDING NEPRO RUNNING @GOAL 30MLS WITH A 30MLS FLUSH U2HSTPO. PATIENT HAS RECTAL TUBE DRAINING TO GRAVITY, BROWN/GREEN LIQUID STOOL. CALL LIGHT IN REACH.
[2025-02-05 10:42] LABS: Base Excess Venous -5.2 mmol/L; Bicarbonate Venous 20.1 mmol/L (24.0-30.0); PCO2 Venous 44.9 mmHg (38-42); pH Blood Venous 7.29 (7.34-7.37)
[2025-02-05] MEDS ORDERED: Sodium Bicarb 8.4% Inj 100 MEQ in Sodium Chloride 0.45% 1,000 ML IV SCH (11:30)
[2025-02-05] MEDS ORDERED: Sodium Zirconium Cyclosilicate 10 GM Packet PO SCH (14:00)
[2025-02-05 14:56] LABS: CO2, Blood 22 mmol/L (21-32); Glucose, Blood 195 mg/dL (70-99); Sodium, Blood 126 mmol/L (136-145)
--- NOTE | 2025-02-05 18:01 | NUR ---
SHIFT SUMMARY: NEURO: PT HAS BEEN OFF SEDATION DURING THIS SHIFT. SHE WAS ABLE TO OPEN EYES SLIGHTLY WHEN ASKED, BUT WHILE CHECKING PUPIL DILATION IT WAS REQUIRED TO HOLD HER EYE LIDS UP. WE ASKED HER TO "BLINK TWICE" IF SHE COULD UNDERSTAND US AND PT RESPONDED APPROPRIATELY. I ATTEMPTED SEVERAL TIMES TO GET THE PT TO SQUEEZE MY HAND BUT GOT NO RESPONSE. PT WOULD MAKE FACIAL GRIMACING MOVEMENTS WHEN DOING ORAL CARE AND ATTEMPTED TO KEEP MOUTH CLOSED. RESPIRATORY: PATIENT TOLERATING VENT. SETTINGS AC/VC22/390/10/45% BY END OF SHIFT. SPO2 AT 98%. SMALL AMOUNT OF WHITE/JORGE MILDY THICK SECRETIONS FROM ETT. CARLA SOUNDED COARSE DURING MOST OF THE SHIFT, AT THE LAST ASSESSMENT IT SOUNDED MORE CLEAR. CARDIAC: PT BLOOD PRESSURE WNL THROUGHOUT SHIFT, PERIODOCIALLY SBP WOULD DECREASE TO HIGH 90'S BUT WOULD RECOVER WITHOUT ANY PRN MEDICATIONS. HR IN THE 100'S-110'S AND MAP HAS TRENDED >65 , BUT OCCASIONALLY WOULD GET BELOW 65 WHEN LEFT ARM WAS PLACED ON PILLOW SITTING AT HEART LEVEL. GI/: PT HAD NO URINE OUTPUT THIS SHIFT. RECTAL TUBE IS INTACT AND DRAINING TO GRAVITY WITH A TOTAL OF 200 MLS IN THE COLLECTION BAG THIS SHIFT. STOOL APPEARED DARK BROWN AND LIQUID. BOWEL SOUNDS WERE HYPOACTIVE AND ABDOMEN WAS SOFT AND NONTENDER. PSYCHSOCIAL: PTS LAKESHIA AND SON ROBERTO TAPIAANIED THE PT AT BEDSIDE TODAY AROUND 1230. PTS SISTER WAS WITH THEM AND SPENT SOME TIME WITH THE PT. THEY ENGAGED WITH THE PATIENT, TALKING TO HER AND TRYING TO GET HER TO OPEN HER EYES OR SQUEEZE THEIR HAND.
[2025-02-06] VITALS (98 sets, daily range): BP systolic 90–184; BP diastolic 47–101
[2025-02-06 04:02] LABS: Hematocrit 25.2 % (33.0-51.0); Hemoglobin 8.4 g/dL (11.5-16.0); Mean Corpuscular HGB 30.8 pg (26.0-34.0); Mean Corpuscular HGB Conc 33.3 g/dL (31.5-36.5); Mean Corpuscular Volume 92 fL (80-100); Mean Platelet Volume 10.9 fL (9.1-12.4); NRBC ABSOLUTE 0.09 K/mm3 (0.00-0.02); NRBC Auto 0.3 /100 WBC (0.0-0.2); Platelet Count 432 K/mm3 (150-400); RDW Coefficient Variation 14.6 % (11.7-14.2); RDW Standard Deviation 47.4 fL (35.1-46.3); Red Blood Cell Count 2.73 M/mm3 (3.80-5.20); White Blood Cell Count 26.18 K/mm3 (4.00-11.30)
[2025-02-06 04:45] LABS: Magnesium, Blood 2.9 mg/dL (1.6-2.4)
[2025-02-06 04:59] LABS: BAND PERCENT MAN 3 % (0-8); BASOPHILS PERCENT MAN 0 % (0-2); EOSINOPHILS PERCENT MAN 0 % (0-6); LYMPHOCYTES ABSOLUTE MAN 2.09 K/mm3 (0.84-5.20); LYMPHOCYTES PERCENT MAN 8 % (21-46); METAMYELOCYTE ABSOLUTE MAN 0.26 K/mm3 (0.00-0.00); METAMYELOCYTE PERCENT MAN 1 % (0-0); MONOCYTES ABSOLUTE MAN 0.78 K/mm3 (0.16-1.47); MONOCYTES PERCENT MAN 3 % (4-13); NEUTROPHILS ABSOLUTE MAN 23.03 K/mm3 (1.96-9.15); SEG NEUTROPHILS PERCENT MAN 85 % (41-73); TOTAL CELLS COUNTED 100
[2025-02-06 05:20] LABS: Albumin, Blood 1.9 g/dL (3.4-5.0); Anion Gap 24 mmol/L (3-11); Blood Urea Nitrogen 182 mg/dL (8-24); Bun/Creatinine Ratio 35.5 (12.0-20.0); CO2, Blood 20 mmol/L (21-32); Calcium, Blood <5.0 mg/dL (8.5-10.1); Chloride, Blood 85 mmol/L (98-108); Creatinine, Blood 5.13 mg/dL (0.40-1.00); Glomerular Filtration Rate 10 (60-); Glucose, Blood 223 mg/dL (70-99); Phosphorus, Blood 12.4 mg/dL (2.5-4.9); Potassium, Blood 5.5 mmol/L (3.5-5.5); Sodium, Blood 123 mmol/L (136-145)
[2025-02-06] MEDS ORDERED: CALCIUM GLUC IN NACL, ISO-OSM 100 ML IV ONE ×3 (05:30→16:05)
--- NOTE | 2025-02-06 06:41 | NUR ---
SHIFT SUMMARY PATIENT INTUBATED WITH A 7.5 ET TUBE HAD AN OG TUBE BOTH SECURED. PATIENT BEEN FERIBLE DURING SHIFT WAS PACKED WITH ICED PACKS IN AXILLARY AREA AND HAS COOLING BLANKET ON. TEMP WENT DOWN TO 100.1. PATIENT DOES OPEN HER EYES TO VERBAL STIMULI BUT DOES NOT FOLLOW COMMANDS FOR THIS NURSE ON SHIFT. PATIENT SBP 100-115'S AND HR IN THE 100'S. PATIENT HAS PICC LINEE IN RODRIGUEZ AND POWERGLIDE IN KAE. LEVOPHED RUNNING @5, BICARB RUNNING @75MLS, INSULIN RUNNING @6.5U, AND TKO INFUSING. VENT SETTINGS 22/390/10/40%. PATIENT HAS RECTAL TUBE DRAINING TO GRAVITY. CALL LIGHT WITHIN REACH.
[2025-02-06] MEDS ORDERED: CALCIUM GLUC IN NACL, ISO-OSM 100 ML IV SCH (08:30)
[2025-02-06] MEDS ORDERED: Sevelamer Carbonate 2.4 GM / PKT PO SCH ×2 (09:00)
[2025-02-06] MEDS ORDERED: Albumin (Human) 25gm/100ml 100 ML IV SCH (11:10)
[2025-02-06] MEDS ORDERED: NS 1,000 ML IV ONE (17:15)
--- NOTE | 2025-02-06 17:30 | NUR ---
Tracheostomy. 1730: 100 Fentanyl 1730: 50mcg propofol 1735: Fentanyl 100mcg 1735: Propofol push 50mcg : saturations 84% on vent fio2 at 100%. 1738: propofol gtt at 30mcg/hr. 1738: vs , sao2 94%, rr 38, bp 193/89 1739: 4mg ativan, 50mg of rocuroneium 1740: Dr MICHEL accessing to the trachea while Dr Elizabeth has bronch scope down ett 1742: balloon of ett down, SAO2 84% pulse 125, RR 32, 173/77, putting pressure of 50 on vent by RT. 1744: Dr Michel access to Trachea, Sa02 76%, pulse 125 1745: pulse 125, sao2 86%, rr 25, entitle co2 45, 1747: pulse 127/ rr 27, sao2 86% bp 148/72 1748: vent connected to trach/ ett is out 1750: pulse 128 Sao2 81% bp 151/72 RR30 1750: Dr Elizabeth has scope to trachea/ suctioning SAO2 94% pulse 126 bp 141/67 1810: Procedure complete
[2025-02-06] MEDS ORDERED: FentaNYL Citrate 50 MCG/ML 2 ML Injection ONE (17:36)
[2025-02-06] MEDS ORDERED: LORazepam 2 MG/ML 1ML Injection ONE (17:36)
--- NOTE | 2025-02-06 19:20 | NUR ---
Summary. Pt now ventilated via Trach, see chart for note. Dialysis catheter placed this morning, pt received dialysis shortly afterwards. Trach placed late in the shift, family updated afterwards. See chart for further details.
--- NOTE | 2025-02-06 22:15 | NUR ---
ASSUMPTION OF CARE: ASSUMED CARE AT START OF SHIFT (1899) FROM DAY SHIFT RN. PATIENT IS DOING WELL, THEY ARE ON A VENTILATOR, THEIR ET TUBE WAS REMOVED AND THEY HAD A TRACH PLACED TODAY. PT IS UNABLE TO FOLLOW COMMANDS AND ONLY RESPONSIVE TO PAINFUL STIMULI AT THIS TIME. THEIR LUNG SOUNDS ARE EQUAL AND DIMINISHED IN THE BASES BILATERALLY. THEY HAVE A RECTAL TUBE IN PLACE. THEIR OG TUBE WAS REMOVED AND THEY ARE NPO FOR NOW. THEY HAVE A COOLING BANKET ON THEM, THEIR TEMPERATURE IS 100.3F. DRIPS: PROPOFOL @30MCG, INSULIN @1.5, AND LEVOPHED @5MCG. THEIR BP HAS BEEN FLUCTUATING BUT THE MAP HAS BEEN REMAINING >65. LINES, CORDS, AND TUBES ARE PLACED OUT OF THE WAY AND CALL LIGHT IS PLACED WITHIN REACH.
[2025-02-07] VITALS (97 sets, daily range): BP systolic 71–171; BP diastolic 45–82
[2025-02-07 04:47] LABS: BASOPHILS ABSOLUTE AUTO 0.06 K/mm3 (0.00-0.23); BASOPHILS PERCENT AUTO 0 % (0-2); EOSINOPHILS ABSOLUTE AUTO 0.31 K/mm3 (0.00-0.68); EOSINOPHILS PERCENT AUTO 2 % (0-6); Hematocrit 23.9 % (33.0-51.0); Hemoglobin 7.7 g/dL (11.5-16.0); IMMATURE GRAN PERCENT AUTO 5 % (0-1); LYMPHOCYTES ABSOLUTE AUTO 1.14 K/mm3 (0.84-5.20); LYMPHOCYTES PERCENT AUTO 6 % (21-46); MONOCYTES PERCENT AUTO 5 % (4-13); Mean Corpuscular HGB Conc 32.2 g/dL (31.5-36.5); Mean Corpuscular Volume 96 fL (80-100); Mean Platelet Volume 10.9 fL (9.1-12.4); NEUTROPHILS ABSOLUTE AUTO 16.22 K/mm3 (1.96-9.15); NEUTROPHILS PERCENT AUTO 83 % (41-73); NRBC ABSOLUTE 0.17 K/mm3 (0.00-0.02); NRBC Auto 0.9 /100 WBC (0.0-0.2); Platelet Count 430 K/mm3 (150-400); RDW Coefficient Variation 14.8 % (11.7-14.2); RDW Standard Deviation 49.6 fL (35.1-46.3); Red Blood Cell Count 2.48 M/mm3 (3.80-5.20); White Blood Cell Count 19.53 K/mm3 (4.00-11.30)
[2025-02-07 05:12] LABS: Magnesium, Blood 2.6 mg/dL (1.6-2.4)
[2025-02-07 05:21] LABS: Albumin, Blood 2.2 g/dL (3.4-5.0); Anion Gap 18 mmol/L (3-11); Blood Urea Nitrogen 114 mg/dL (8-24); Bun/Creatinine Ratio 33.5 (12.0-20.0); CO2, Blood 26 mmol/L (21-32); Calcium, Blood 6.1 mg/dL (8.5-10.1); Chloride, Blood 94 mmol/L (98-108); Glomerular Filtration Rate 16 (60-); Glucose, Blood 178 mg/dL (70-99); Phosphorus, Blood 6.3 mg/dL (2.5-4.9); Potassium, Blood 3.7 mmol/L (3.5-5.5); Sodium, Blood 134 mmol/L (136-145)
[2025-02-07] MEDS ORDERED: CALCIUM GLUC IN NACL, ISO-OSM 100 ML IV ONE ×2 (05:50→12:00)
--- NOTE | 2025-02-07 06:09 | NUR ---
CHRISTINE SUMMARY: PATIENT DID WELL THROUGHOUT THE NIGHT. THEIR PROPOFOL WAS TITRATED DOWN TO 10MCG, INSULIN @2UNITS, AND LEVOPHED @3MCG. THEIR BP HAS BEEN FLUCTUATING BUT MAP HAS BEEN STAYING >65. THEIR TEMPERATURE CONTINUED TO RISE THROUGHOUT THE NIGHT, COOLING BLANKET REMAINED ON THEM AND THEY WERE GIVEN IBUPROFEN. THE SITE AROUND THEIR TRACH WAS SLOWLY OOZING BLOOD, GAUZE WAS PLACED AROUND THE SITE TO ATTEMPT TO MANAGE THE BLEEDING. PT'S AIRWAY REMAINED CLEAR. THE PT RECIEVED A [facility] BED BATH DURING THE NIGHT, THEIR LINENS AND GOWN WERE CHANGED. A DOBHOFF TUBE WAS PLACED AND SECURED. TUBE FEEDING WAS RESTARTED. THE PATIENT STARTED TO BECOME MORE ALERT TOWARDS THE END OF THE SHIFT, THEY WERE SPONTANEOUSLY OPENING THEIR EYES, BUT STILL UNABLE TO FOLLOW COMMANDS, ONLY RESPONSIVE TO PAINFUL STIMULI. THEIR LINES, CORDS, AND TUBES WERE PLACED OUT OF THE WAY AND CALL LIGHT WAS PLACED WITHIN REACH.
[2025-02-07] MEDS ORDERED: NS 1,000 ML IV ONE (06:45)
[2025-02-07] MEDS ORDERED: LORazepam 2 MG/ML 1ML Injection IV PRN (06:50)
[2025-02-07] MEDS ORDERED: FentaNYL Citrate 50 MCG/ML 2 ML Injection IV SCH (06:50)
[2025-02-07] MEDS ORDERED: Tranexamic Acid 100 ML IV ONE (07:50)
[2025-02-07 08:37] LABS: International Normalized Ratio 1.03
[2025-02-07] MEDS ORDERED: Calcitriol 0.25 MCG Cap PT SCH (09:00)
[2025-02-07] MEDS ORDERED: Acetaminophen 160MG / 5ML 10.15 UDC PT PRN (10:25)
[2025-02-07 11:23] LABS: Hematocrit 22.8 % (33.0-51.0); Hemoglobin 7.6 g/dL (11.5-16.0)
--- NOTE | 2025-02-07 11:57 | NUR ---
DR YADIRA MAY AT BEDSIDE AT THIS TIME TO ASSESS BLEEDING FROM TRACH INSERTION SITE. SITE WITH LARGE AMOUNT OF VERNELL RED BLEEDING FROM SITE THROUGHOUT THIS AM. SITE PACKED WITH GAUZE MULTIPLE TIMES THIS MORNING. DR MAY PLACED ULTRAFOAM INTO TRACH INCISION. SITE CONTINUES TO OOZE SIGNIFICANTLY WITHOUT IMPROVEMENT WITH ULTRA FOAM.
[2025-02-07] MEDS ORDERED: Meropenem 500 MG in NS 100 ML IV SCH (12:00)
--- NOTE | 2025-02-07 13:54 | NUR ---
Spiritual Care Visit. Pt. is intubated and continues to be non responsive. No visitors are present. Prayed for Pt. and will remain available to both Pt. and family.
[2025-02-07] MEDS ORDERED: Albumin (Human) 25gm/100ml 100 ML IV SCH (14:00)
--- NOTE | 2025-02-07 15:31 | NUR ---
Spoke with pt's Neil by phone today. We had planned on meeting last week, but the opportunity didn't arise. Neil became tearful on the phone today, states he, his and son are a "trio" and they do everything together. He reports their son "finally broke down and cried a couple days ago." He states his 's illness has been hard on them. Plan to meet tomorrow morning.
--- NOTE | 2025-02-07 16:48 | NUR ---
SHIFT SUMMARY PT REMAINS VENTED VIA TRACH. VENT SETTINGS REMAIN AC 22, TV 390, PEEP 10, FIO2 40%. PT OFF ALL SEDATION SINCE THIS AM. PT WITH PROFUSE BRIGHT RED BLEEDING FROM TRACH SURGICAL SITE THIS SHIFT. DR MAY IN TO ASSESS THIS MORNING. NO IMPROVEMENTS IN BLEEDING AFTER PACKING INCISION WITH FOAM. SITE CLEANSED AND NEW GAUZE/FOAM DRESSINGS PLACED TO TRACH SITE MULTIPLE TIMES THIS SHIFT. PT OPENS EYES SPONTANEOUSLY AND TO VERBAL STIMULI. PT DOES NOT TRACK OR FOLLOW ANY COMMANDS. PT WITHOUT ANY PURPOSFUL EXTREMITY MOVEMENT. DOBHOFF REMAINS IN PLACE WITH TF INFUSING AT GOAL RATE. PICC TO KAE C/D/I, NS INFUSING TKO. LEVOPHED TITRATED UP TO 10 MCG/MIN DURING DIALYSIS THIS SHIFT. LEVO BACK DOWN TO 2 MCG/MIN AT THIS TIME. TRIALYSIS CATH TO RIJ C/D/I. PT WITHOUT CHANGES TO WOUNDS THIS SHIFT. PT TURNED Q2 AND CHG BATH DONE. PT REMAINS WITH FEVER DESPITE COOLING BLANKET AND TYLENOL PRN. MULTIPLE FAMILY MEMBERS IN THROUGHOUT THE SHIFT. VITAL SIGNS STABLE. WILL CONTINUE TO MONITOR AND REPORT OFF TO ONCOMING RN.
[2025-02-07] MEDS ORDERED: ZINC OXIDE/PETROLATUM, YELLOW 1 APPLIC/71 GM PASTE TOP PRN (16:55)
[2025-02-07] MEDS ORDERED: Insulin Glargine-Yfgn 100 Unit/mL 3 ML SYR SC SCH (21:00)
--- NOTE | 2025-02-07 21:28 | NUR ---
ASSUMPTION OF CARE: ASSUMED CARE AT START OF SHIFT (1899) REPORT RECIEVED FROM DAY SHIFT RN. THE PATIENT WAS TAKEN OFF OF PROPOFOL EARLIER TODAY AND HAVE BEEN DOING WELL. THEY ARE VENTED ON A TRACH. THERE IS CONTINUOUS BLEEDING. BLOOD SLOWLY BUBBLING FROM THE TRACH SITE, SITE IS SURROUNDED BY GAUZE AND DOCOTOR WAS NOTFIED DURING THE DAY SHIFT. MOVEMENT AND READUJSTMENTS ARE LIMITED AND CAREFULLY DONE BECUASE THE TRACH CAN EASILY POP OFF ATTACHMENT. PT IS OPENING THEIR EYES SPONTANEOUSLY BUT STILL UNABLE TO FOLLOW COMMANDS AND RESPONSIVE TO PAINFUL STIMULI. PT DOES NOT ENJOY TEETH CLEANING AND WILL TRY TO CLENCH THEIR JAW CLOSED. THEY HAVE INSULIN DRIP @3UNITS AND LEVOPHED @2MCG. PT CONTINUES TO HAVE FEVER OF 101F AND COOLING BLANKET IS ON. RECTAL TUBE IN PLACE AND FLOWING TO GAVITY. FEEDTUBE RUNNING VIA [employer]. LINES, CORDS, AND TUBES OUT OF THE WAY AND CALL LIGHT PLACED WITHIN REACH. WILL CONTINUE TO MONITOR.
[2025-02-08] VITALS (111 sets, daily range): BP systolic 82–181; BP diastolic 45–79
[2025-02-08 03:56] LABS: Hematocrit 20.9 % (33.0-51.0); Hemoglobin 6.7 g/dL (11.5-16.0); Mean Corpuscular HGB 30.9 pg (26.0-34.0); Mean Corpuscular HGB Conc 32.1 g/dL (31.5-36.5); Mean Corpuscular Volume 96 fL (80-100); Mean Platelet Volume 10.7 fL (9.1-12.4); NRBC Auto 2.1 /100 WBC (0.0-0.2); Platelet Count 354 K/mm3 (150-400); RDW Coefficient Variation 15.8 % (11.7-14.2); RDW Standard Deviation 49.7 fL (35.1-46.3); Red Blood Cell Count 2.17 M/mm3 (3.80-5.20); White Blood Cell Count 14.02 K/mm3 (4.00-11.30)
[2025-02-08 04:28] LABS: Magnesium, Blood 2.5 mg/dL (1.6-2.4)
[2025-02-08 04:33] LABS: Alanine Aminotransfer (ALT/SGP 265 U/L (12-78); Albumin, Blood 2.2 g/dL (3.4-5.0); Albumin/Globulin Ratio 0.6 (0.8-1.8); Alk Phos 73 U/L (50-136); Anion Gap 16 mmol/L (3-11); Aspartate Aminotrans (AST/SGOT 1190 U/L (12-37); Bilirubin, Direct 0.3 mg/dL (0.0-0.3); Bilirubin, Indirect 0.4 mg/dL (0.1-0.7); Bilirubin, Total 0.7 mg/dL (0.1-1.0); Blood Urea Nitrogen 109 mg/dL (8-24); Bun/Creatinine Ratio 35.7 (12.0-20.0); CO2, Blood 28 mmol/L (21-32); Calcium, Blood 6.8 mg/dL (8.5-10.1); Chloride, Blood 94 mmol/L (98-108); Creatinine, Blood 3.05 mg/dL (0.40-1.00); Globulin, Blood 3.7 g/dL (2.2-4.0); Glomerular Filtration Rate 18 (60-); Glucose, Blood 191 mg/dL (70-99); Phosphorus, Blood 4.5 mg/dL (2.5-4.9); Potassium, Blood 3.6 mmol/L (3.5-5.5); Sodium, Blood 134 mmol/L (136-145); Total Protein, Blood 5.9 g/dL (6.4-8.2)
--- NOTE | 2025-02-08 04:48 | NUR ---
BLEEDING DR. HERNANDEZ NOTIFIED OF CONTINUED BLEEDING FROM TRACH AND OF HgB 6.7. ORDER RECEIVED TO TRANSFUSE 1 UNIT PRBC. ALSO NOTIFIED OF CONTINUED INCREASE IN TEMPERATURE. CLARIFIED THAT IT WAS OKAY TO GIVE TYLENOL IN LIGHT OF CONTINUED ELEVATED LIVER ENZYMES.
[2025-02-08 04:49] LABS: BAND PERCENT MAN 4 % (0-8); BASOPHILS PERCENT MAN 0 % (0-2); EOSINOPHILS PERCENT MAN 0 % (0-6); LYMPHOCYTES ABSOLUTE MAN 1.12 K/mm3 (0.84-5.20); LYMPHOCYTES PERCENT MAN 8 % (21-46); METAMYELOCYTE ABSOLUTE MAN 0.14 K/mm3 (0.00-0.00); METAMYELOCYTE PERCENT MAN 1 % (0-0); MONOCYTES ABSOLUTE MAN 0.28 K/mm3 (0.16-1.47); MONOCYTES PERCENT MAN 2 % (4-13); MYELOCYTE ABSOLUTE MAN 0.28 K/mm3 (0.00-0.00); MYELOCYTE PERCENT MAN 2 % (0-0); NEUTROPHILS ABSOLUTE MAN 12.19 K/mm3 (1.96-9.15); SEG NEUTROPHILS PERCENT MAN 83 % (41-73); TOTAL CELLS COUNTED 100
[2025-02-08] MEDS ORDERED: CALCIUM GLUC IN NACL, ISO-OSM 100 ML IV ONE ×2 (05:05→16:00)
--- NOTE | 2025-02-08 06:36 | NUR ---
SHIFT SUMMARY: PT DID WELL THROUGHOUT THE SHIFT, THEY DID APPEARE TO GET SOME SLEEP DURING THE NIGHT. HOWEVER, THEY DID HAVE SOME OCCASIONAL COUGHING EPISODES THAT APPEARED TO BE IN PAIN, THEY WERE GIVEN SOME FENTANYL WHICH SEEMED TO HELP THEM. WHEN PT WAS AWAKE THEY WOULD OPEN THEIR EYE SPONTANEOUSLY, BUT THEY ARE STILL UNABLE TO ANSWER QUESTION OR FOLLOW COMMANDS, AND WILL GRIMACE TO PAINFUL STIMULI. THEIR BP STARTED OUT WELL AND THE LEVOPHED WAS REDUCED TO 1MCG BUT, THEN THEY STARTED TO BECOME HYPOTENSIVE AND MAP WAS <64 SO THEIR LEVOPHED HAS BEEN SLOWLY INCREASED TO 4MCG. THEIR BLOOD GLUCOSE HAS BEEN AROUND 20O AND INSULIN DRIP RUNNING AT 5 UNITS. THE TRACH SITE CONTINUES TO OOZE AND BUBBLE BLOOD, THE DRESING HAS BEEN CHANGES MULTIPLE TIMES. DOCTOR WAS NOTIFIED ABOUT THE CONTINUED BLEEDING AND THEY ORDERED 1 UNIT OF PRBCS. THEY CONTINUE TO HAVE A FEVER WELL, TEMPERATURE IS 104.3F, COOLING BLANKET IN PLACE, ICE PACKS PLACED IN ARM PITS, AND THEY WERE GIVEN TYLENOL WHICH DOES NOT SEEM TO BE REDUCING THEIR TEMPERATURE. LINES, CORDS, AND TUBES WERE PLACED OUT THE WAY.
[2025-02-08] MEDS ORDERED: Calcium Acetate 667 MG Gel Cap PT SCH (08:30)
--- NOTE | 2025-02-08 09:19 | NUR ---
DR MAY UPDATE DR MAY CALLED AND UPDATED ABOUT CONTINUED BLEEDING FROM TRACH INSERTION SITE. PT WITH [address] UN[address]BC[address] MAY PLANS TO COME SEE PT AROUND MID DAY. NO NEW ORDERS RECIEVED.
[2025-02-08 09:40] LABS: Uric Acid, Blood 7.7 mg/dL (2.6-6.0)
[2025-02-08 10:32] LABS: Hematocrit 21.8 % (33.0-51.0); Hemoglobin 7.2 g/dL (11.5-16.0)
--- NOTE | 2025-02-08 11:15 | NUR ---
Assumed care of patient.
--- NOTE | 2025-02-08 17:20 | NUR ---
End of shift summary: Remains off all sedation. Opens eyes spontaneously, does not track, does not follow commands, does not move extremities even to painful stimuli - though she does grimace with nailbed pressure to RUE only. Pupils equal/brisk. Tmax 104 - cooling blanket in place. In ST in 100-120s. Blood pressures stable with norepi gtt infusing currently at 2 mcg/min. Trach secure & in place, re-packed this afternoon by Dr. Michel which has eradicated the bleeding from the site. Remains on AC/VC 22/390/10/50%. Rectal tube in place as well as dobhoff - TF infusing at goal. Anuric. PICC line to [facility]. HD cath to [facility]. Insulin gtt infusing per protocol. Currently getting HD which will remove 2.2L per field inspector. Patient taken for CT of head and neck today. 1u PRBC administered this morning - repeat Hgb 7.2. Family updated at bs.
--- NOTE | 2025-02-08 17:58 | NUR ---
Pt. is intubated and not responsive. Pt had just had dialysis done in her room. No family are present but prayer for the Pt. was made. Will remain available to the Pt. and family.
--- NOTE | 2025-02-08 21:25 | NUR ---
ASSUMPTION OF CARE: ASSUMED CARE AT START OF SHIFT (1899), REPORT RECEIVED FROM DAY SHIFT RN. PT IS DOING WELL. PT IS AWAKE, OPENING EYES SPONTANEOUSLY AND WILL SOMETIMES TRACK BUT THEY ARE STILL UNABLE TO FOLLOW COMMANDS. PT WILL ONLY GRIMACE TO PAINFUL STIMULI AT THIS TIME. PT HAD A HEAD CT EALIER TODAY THAT WAS NEGATIVE. PT LUNG SOUNDS ARE COARSE AND DIMINSHED IN THE BASES BILATERALLY, THEY ARE VENTED ON A TRACH, AC/VC 22 TV 390 PEEP 10 FIO2 50%. NO LONGER BLEEDING AT THE TRACH SITE. DRIPS: LEVOPHED AT 2MCG AND INSULIN 2.4 UNITS/HR. THEY CONTINUE TO HAVE A FEVER WITH COOLING BLANKET ON. RECTAL TUBE IN PLACE AND FLOWING TO GRAVITY. LINES, CORDS, VENT TUBING PLACED OUT OF THE WAY. WILL CONTINUE TO MONTIOR.
--- NOTE | 2025-02-08 21:45 | NUR ---
NURSE NOTE: TEMPERATURE HAS INCREASED TO 103.0F. TYLENOL HAS BEEN GIVEN, COOLING BLANKET ON. ICE PACKS ARE IN ARMS PITS, GROIN, AND BEHIND THE NECK
[2025-02-09] VITALS (106 sets, daily range): BP systolic 75–176; BP diastolic 40–84
[2025-02-09 03:22] LABS: Base Excess Venous 6.3 mmol/L; Bicarbonate Venous 29.4 mmol/L (24.0-30.0); PCO2 Venous 49.6 mmHg (38-42)
[2025-02-09 03:31] LABS: Hematocrit 20.3 % (33.0-51.0); Hemoglobin 6.7 g/dL (11.5-16.0); Mean Corpuscular HGB 32.4 pg (26.0-34.0); Mean Corpuscular Volume 98 fL (80-100); Mean Platelet Volume 10.4 fL (9.1-12.4); NRBC ABSOLUTE 0.42 K/mm3 (0.00-0.02); NRBC Auto 2.4 /100 WBC (0.0-0.2); Platelet Count 358 K/mm3 (150-400); RDW Coefficient Variation 16.5 % (11.7-14.2); RDW Standard Deviation 51.7 fL (35.1-46.3); Red Blood Cell Count 2.07 M/mm3 (3.80-5.20); White Blood Cell Count 17.52 K/mm3 (4.00-11.30)
[2025-02-09 03:49] LABS: Albumin, Blood 2.3 g/dL (3.4-5.0); Anion Gap 13 mmol/L (3-11); Blood Urea Nitrogen 91 mg/dL (8-24); Bun/Creatinine Ratio 33.5 (12.0-20.0); CO2, Blood 29 mmol/L (21-32); Calcium, Blood 8.1 mg/dL (8.5-10.1); Chloride, Blood 99 mmol/L (98-108); Creatinine, Blood 2.72 mg/dL (0.40-1.00); Glomerular Filtration Rate 21 (60-); Glucose, Blood 213 mg/dL (70-99); Magnesium, Blood 2.5 mg/dL (1.6-2.4); Phosphorus, Blood 3.8 mg/dL (2.5-4.9); Potassium, Blood 3.3 mmol/L (3.5-5.5); Sodium, Blood 138 mmol/L (136-145)
[2025-02-09 03:57] LABS: BAND PERCENT MAN 2 % (0-8); BASOPHILS ABSOLUTE MAN 0.17 K/mm3 (0.00-0.23); BASOPHILS PERCENT MAN 1 % (0-2); EOSINOPHILS PERCENT MAN 0 % (0-6); LYMPHOCYTES PERCENT MAN 12 % (21-46); METAMYELOCYTE ABSOLUTE MAN 0.35 K/mm3 (0.00-0.00); METAMYELOCYTE PERCENT MAN 2 % (0-0); MONOCYTES ABSOLUTE MAN 1.92 K/mm3 (0.16-1.47); MONOCYTES PERCENT MAN 11 % (4-13); MYELOCYTE ABSOLUTE MAN 0.87 K/mm3 (0.00-0.00); MYELOCYTE PERCENT MAN 5 % (0-0); NEUTROPHILS ABSOLUTE MAN 12.08 K/mm3 (1.96-9.15); SEG NEUTROPHILS PERCENT MAN 67 % (41-73); TOTAL CELLS COUNTED 100
--- NOTE | 2025-02-09 04:35 | NUR ---
NURSE NOTE: REPORTED LAB VALUES TO DR. SANTANA. PT'S H&H: 6.7/20.3 DID NOT WANT TO ORDER BLOOD AT THIS TIME. PT'S POTASSIUM IS LOW, ORDER 20 KCL IV.
[2025-02-09] MEDS ORDERED: Potassium Chl 20MEQ/Water100ML 100 ML IV ONE (05:15)
--- NOTE | 2025-02-09 06:33 | NUR ---
SHIFT SUMMARY: PT IS DOING WELL, THEY ARE RESTING IN BED, STILL VENTILATED VIA TRACH. THEY APPEARED TO GET SOME SLEEP DURING THE NIGHT. THEY ARE OPENING THEIR EYES SPONTANEOUSLY BUT STILL UNABLE TO FOLLOW COMMANDS, WILL GLARE AND GRIMACE TO PAINFUL STIMULI. THEY HAVE BEEN RUNNING A FEVER, HIGHEST TEMP WAS 103.2F AND THEIR WERE GIVEN TYLENOL, ICE PACKS, AND COOLING BLANKET AND THEIR TEMPERATURE IS DOWN TO 100.3F. THEIR BP HAS BEEN HAS BEEN FLUCTUATING THROUGHOUT THE SHIFT, LEVOPHED @ 9MCG AND MAP >65. BLOOD GLUCOSE HAS BEEN STAYING AROUND 200 AND INSULIN DRIP @ 5.2. THEY RECEIVED A CHG BED BATH, GOWN AND LINENS WERE CHANGED. TRACH SITE LOOKS GOOD, NO BLEEDING NOTED. RECTAL TUBE BAG WAS CHANGED. LINES, CORDS, AND TUBING PLACED OUT OF THE WAY. CALL LIGHT PLACED WITHIN REACH.
[2025-02-09] MEDS ORDERED: CALCIUM GLUC IN NACL, ISO-OSM 50 ML IV ONE (06:40)
--- NOTE | 2025-02-09 08:00 | NUR ---
[place] of care: Opens eyes to voice, appears to track. Does not follow commands or move extremities to pain. Grimaces to deep nailbed pressure. IN NSR in 90-100 range. Blood pressures stable on norepi gtt. #6 shiley secure & sutured in place. ACVC 22/390/10/50% with diminished lung sounds. Rectal tube in place. Anuric. Dobhoff infusing continuous tube feeds at goal. Cooling blanket due to persistent elevated temps. PICC to RUE & R IJ HD cath. Insulin gtt infusing per protocol. Will continue to monitor.
[2025-02-09 10:35] LABS: International Normalized Ratio 1.03
--- NOTE | 2025-02-09 11:12 | NUR ---
Update: Spoke with pt's Neil and 2 sons Mitch and Corona yesterday. We discussed pt's current condition, and code status. She is currently full code, and we discussed the differences between this and DNR. Neil was extremely tearful, and asked me to repeat the conversation to his son Mitch. They stated they would discuss it as a family and get back to us. Noted a significant increase in family members visiting today. Plan to reach out to Neil this afternoon if I haven't heard back from him.
[2025-02-09 13:24] LABS: Hematocrit 22.8 % (33.0-51.0); Hemoglobin 7.3 g/dL (11.5-16.0)
[2025-02-09] MEDS ORDERED: Albumin (Human) 25gm/100ml 100 ML IV SCH (14:10)
[2025-02-09 14:28] LABS: Acinetobacter baumannii DNA Not Detected copy/mL (NOT DETECT); Enterobacter cloacae DNA Not Detected copy/mL (NOT DETECT); Escherichia coli DNA Not Detected copy/mL (NOT DETECT); Haemophilus influenzae DNA Not Detected copy/mL (NOT DETECT); Klebsiella aerogenes DNA Not Detected copy/mL (NOT DETECT); Klebsiella oxytoca DNA Not Detected copy/mL (NOT DETECT); Klebsiella pneumoniae DNA Not Detected copy/mL (NOT DETECT)
[2025-02-09 14:29] LABS: Adenovirus DNA Not Detected (NOT DETECT); Chlamydia pneumonia Not Detected (NOT DETECT); Human Coronavirus RNA Not Detected (NOT DETECT); Human Metapneumovirus RNA Not Detected (NOT DETECT); Influenza virus A RNA Detected (NOT DETECT); Influenza virus B RNA Not Detected (NOT DETECT); Legionella pneumophila Not Detected (NOT DETECT); Moraxella catarrhalis DNA Not Detected copy/mL (NOT DETECT); Mycoplasma pneumoniae Not Detected (NOT DETECT); Parainfluenza virus RNA Not Detected (NOT DETECT); Proteus sp DNA Not Detected copy/mL (NOT DETECT); Pseudomonas aeruginosa DNA Not Detected copy/mL (NOT DETECT); Respiratory syncytial Vir RNA Not Detected (NOT DETECT); Rhinovirus+Enterovirus RNA Not Detected (NOT DETECT); Serratia marcescens DNA Not Detected copy/mL (NOT DETECT); Staphylococcus aureus DNA Not Detected copy/mL (NOT DETECT); Streptococcus agalactiae DNA Not Detected copy/mL (NOT DETECT); Streptococcus pneumoniae DNA Not Detected copy/mL (NOT DETECT); Streptococcus pyogenes DNA Not Detected copy/mL (NOT DETECT)
--- NOTE | 2025-02-09 17:39 | NUR ---
End of shift summary: Arouses to verbal stimuli & most recently followed commands by wiggling bilat LE toes. Does not move upper extremities to painful stimuli or otherwise. Will track & open eyes to voice. IN NSR in 90s. Blood pressures stable on norepi gtt - see emar for details. #6 shiley sutured & secure, site clean/dry/intact. Remains on ACVC 22/390/10/50%. Repeat sputum & blood cultures sent today. Rectal tube & dobhoff in place infusing TF at goal. Anuric. HD completed today with 3.2L removed. One unit PRBC administered this am. PICC to E[facility]O, HD cath to R IJ. Insulin gtt infusing per protocol. See chart for updated skin integrity photos, taken today. Will continue to monitor.
[2025-02-09 21:24] LABS: Bun/Creatinine Ratio 31.2 (12.0-20.0); Creatinine, Blood 1.89 mg/dL (0.40-1.00); Potassium, Blood 3.5 mmol/L (3.5-5.5)
[2025-02-09 21:34] LABS: Hematocrit 22.6 % (33.0-51.0); Hemoglobin 7.2 g/dL (11.5-16.0)
[2025-02-09] MEDS ORDERED: Potassium Chloride 20 MEQ/15 ML UDC PO ONE (22:15)
[2025-02-10] VITALS (90 sets, daily range): BP systolic 78–151; BP diastolic 46–76
[2025-02-10 04:33] LABS: Hematocrit 24.1 % (33.0-51.0); Hemoglobin 7.5 g/dL (11.5-16.0)
[2025-02-10 04:48] LABS: Albumin, Blood 2.7 g/dL (3.4-5.0); Anion Gap 11 mmol/L (3-11); Blood Urea Nitrogen 73 mg/dL (8-24); Bun/Creatinine Ratio 32.7 (12.0-20.0); CO2, Blood 30 mmol/L (21-32); Calcium, Blood 9.1 mg/dL (8.5-10.1); Chloride, Blood 102 mmol/L (98-108); Creatinine, Blood 2.23 mg/dL (0.40-1.00); Glomerular Filtration Rate 26 (60-); Glucose, Blood 167 mg/dL (70-99); Magnesium, Blood 2.4 mg/dL (1.6-2.4); Phosphorus, Blood 2.9 mg/dL (2.5-4.9); Potassium, Blood 3.8 mmol/L (3.5-5.5); Sodium, Blood 139 mmol/L (136-145)
--- NOTE | 2025-02-10 06:14 | NUR ---
SHIFT SUMMARY PT REMAINS ON VENT VIA TRACH, FIO2 40% SPO2>92%. PT TOLERATING WELL, OPENS EYES TO VRBAL STIMULI, FOLLOWS COMMANDS TO WIGGLE TOES, DOES NOT MOVE UPPER EXT, GRIMACES WITH REPOSITONING, TRACKS NURSE WITH EYES, SR-ST 90-120s, ON LEVOPHED GTT TITRATED TO KEEP MAP >65 PER EMAR, #[address] SHI[address] IN [address] AND SECURE WITH TRACH FILIBERTO, LEFT NARE DOBHOFF AT 60 CM SECURED WITH TAPE TO NOSE, PATENT, PLACEMENT VERIFIED BY AUSC WITH NO NOTED RESIDUAL, NEPRO INFUSING AT GOAL RATE OF 30 ML/HR WITH 30 ML H20 FLUSHES EVERY 4 HOURS, RECTAL TUBE PATENT AND DRAINING LIQUID BROWN STOOL TO GRAVITY, PT ANURIC, PICC TO KAE PATENT WITH LEVOPHED AND INSULIN INFUSING PER EMAR, TRIALYSIS HD CATH TO RIGHT IJ PATENT, TMAX 101.9F, COOLING BLANKET ON, TURNED AND REPOSITIONED EVERY 2 HOURS, SCDs ON, COMPLETE BEDBATH GIVEN THIS SHIFT, HOB UP 45 DEGREES, SIDE RAILS UP X3
[2025-02-10] MEDS ORDERED: Insulin Glargine-Yfgn 100 Unit/mL 3 ML SYR SC SCH (09:00)
[2025-02-10] MEDS ORDERED: Insulin Regular 100 UNIT/ML 10ML Vial SC SCH (12:00)
[2025-02-11] VITALS (108 sets, daily range): BP systolic 74–138; BP diastolic 42–69
[2025-02-11 04:17] LABS: Hematocrit 23.5 % (33.0-51.0); Hemoglobin 7.3 g/dL (11.5-16.0); Mean Corpuscular HGB 31.6 pg (26.0-34.0); Mean Corpuscular HGB Conc 31.1 g/dL (31.5-36.5); Mean Corpuscular Volume 102 fL (80-100); Mean Platelet Volume 10.3 fL (9.1-12.4); NRBC ABSOLUTE 0.13 K/mm3 (0.00-0.02); NRBC Auto 1.1 /100 WBC (0.0-0.2); Platelet Count 337 K/mm3 (150-400); RDW Coefficient Variation 18.9 % (11.7-14.2); RDW Standard Deviation 56.6 fL (35.1-46.3); Red Blood Cell Count 2.31 M/mm3 (3.80-5.20)
[2025-02-11 04:37] LABS: Albumin, Blood 2.4 g/dL (3.4-5.0); Anion Gap 13 mmol/L (3-11); Blood Urea Nitrogen 109 mg/dL (8-24); Bun/Creatinine Ratio 37.1 (12.0-20.0); CO2, Blood 28 mmol/L (21-32); Calcium, Blood 9.2 mg/dL (8.5-10.1); Chloride, Blood 100 mmol/L (98-108); Creatinine, Blood 2.94 mg/dL (0.40-1.00); Glomerular Filtration Rate 19 (60-); Glucose, Blood 194 mg/dL (70-99); Magnesium, Blood 2.6 mg/dL (1.6-2.4); Phosphorus, Blood 3.9 mg/dL (2.5-4.9); Sodium, Blood 137 mmol/L (136-145)
[2025-02-11 04:39] LABS: BAND PERCENT MAN 2 % (0-8); BASOPHILS ABSOLUTE MAN 0.12 K/mm3 (0.00-0.23); BASOPHILS PERCENT MAN 1 % (0-2); EOSINOPHILS ABSOLUTE MAN 0.24 K/mm3 (0.00-0.68); EOSINOPHILS PERCENT MAN 2 % (0-6); LYMPHOCYTES PERCENT MAN 5 % (21-46); METAMYELOCYTE ABSOLUTE MAN 0.24 K/mm3 (0.00-0.00); METAMYELOCYTE PERCENT MAN 2 % (0-0); MONOCYTES ABSOLUTE MAN 0.48 K/mm3 (0.16-1.47); MONOCYTES PERCENT MAN 4 % (4-13); MYELOCYTE ABSOLUTE MAN 0.12 K/mm3 (0.00-0.00); MYELOCYTE PERCENT MAN 1 % (0-0); NEUTROPHILS ABSOLUTE MAN 10.16 K/mm3 (1.96-9.15); PLASMA CELL ABSOLUTE MAN 0.12 K/mm3 (0.00-0.00); PLASMA CELLS PERCENT MAN 1 % (0-0); SEG NEUTROPHILS PERCENT MAN 82 % (41-73); TOTAL CELLS COUNTED 100
--- NOTE | 2025-02-11 06:25 | NUR ---
SHIFT SUMMARY PT REMAINS ON VENT VIA #6 SHILEY TRACH, FIO2 40%, RATE 22,PEEEP 10, TV 390,AC/VC, TOLERATING WELL, OPENS EYES TO VERBAL COMMANS, GRIMACES WITH REPOSITIOING, TRACKS WITH EYES, SR/ST 90-120s, BP MAP >65 WITH LEVOPHED GTT REASTARTED AND INFUSING AT 3 MCG/HR, TITRATED PER EMAR, LEFT NARE NGT PATENT AND SECURED AT 60 CM WITH TAPE TO NOSE, NEPRO INFUSING AT GOAL RATE OF 30 ML/HR WITH 30 ML H20 FLUSHED EVERY 4 HOURS, NO RESIDUAL NOTED, RECTAL TUBE PATENT AND DRAINING LIQUID BROWN STOOL TO GRAVITY, ANURIC, GENERALIZED +2 EDEMA NOTED, SCDS ON TMAX 101.9f, COOLING BLANKET ON WITH ICE PACKS IN USE, TURNED AND REPOSITIONED EVERY 2 HOURS, HOB UP 35 DEGREES, SIDE RAILS UP X3
[2025-02-11] MEDS ORDERED: Albumin (Human) 25gm/100ml 100 ML IV SCH (08:40)
[2025-02-11] MEDS ORDERED: Acetaminophen 160MG / 5ML 10.15 UDC PO PRN (09:30)
[2025-02-11] MEDS ORDERED: diphenhydrAMINE HCL 25 MG/10 ML UDC PT SCH (10:00)
[2025-02-11] MEDS ORDERED: NS 500 ML IV SCH (10:04)
[2025-02-11] MEDS ORDERED: IMMUN GLOB G(IGG)/PRO/IGA 0-50 100 ML IV SCH (11:00)
[2025-02-11 13:29] LABS: (1,3)-BETA-D-GLUCAN 60 pg/mL; (1,3)-BETA-D-GLUCAN INTERP Indeterminate (Negative)
--- NOTE | 2025-02-11 18:16 | NUR ---
PT REMAINED ON LOW DOSAGE OF LEVOPHED GTT FOR THE WHOLE SHIFT (2-3). HD PERFORMED TODAY WITH 4.3 PULLED NET. IVIG STARTED TODAY WITH PREMEDICATION, NO REACTION. PT ON PRESSURE SUPPORT FOR 6 HRS AT THIS POINT AND STILL CONTINUING.
[2025-02-11 18:23] LABS: HIV 1,2 COMBO ANTIGEN/ANTIBODY Negative (Negative)
[2025-02-11] MEDS ORDERED: Heparin Sodium,Porcine 5,000 UNIT/0.5 ML SDV SC SCH (21:00)
[2025-02-12] VITALS (91 sets, daily range): BP systolic 82–139; BP diastolic 50–90
[2025-02-12 04:44] LABS: BASOPHILS ABSOLUTE AUTO 0.07 K/mm3 (0.00-0.23); BASOPHILS PERCENT AUTO 1 % (0-2); EOSINOPHILS ABSOLUTE AUTO 0.44 K/mm3 (0.00-0.68); EOSINOPHILS PERCENT AUTO 4 % (0-6); Hematocrit 24.1 % (33.0-51.0); Hemoglobin 7.5 g/dL (11.5-16.0); IMMATURE GRAN ABSOLUTE AUTO 0.34 K/mm3 (0.00-0.10); IMMATURE GRAN PERCENT AUTO 3 % (0-1); LYMPHOCYTES ABSOLUTE AUTO 0.86 K/mm3 (0.84-5.20); LYMPHOCYTES PERCENT AUTO 8 % (21-46); MONOCYTES ABSOLUTE AUTO 0.58 K/mm3 (0.16-1.47); MONOCYTES PERCENT AUTO 6 % (4-13); Mean Corpuscular HGB 31.9 pg (26.0-34.0); Mean Corpuscular HGB Conc 31.1 g/dL (31.5-36.5); Mean Corpuscular Volume 103 fL (80-100); Mean Platelet Volume 10.3 fL (9.1-12.4); NEUTROPHILS ABSOLUTE AUTO 7.97 K/mm3 (1.96-9.15); NEUTROPHILS PERCENT AUTO 78 % (41-73); NRBC ABSOLUTE 0.03 K/mm3 (0.00-0.02); NRBC Auto 0.3 /100 WBC (0.0-0.2); Platelet Count 315 K/mm3 (150-400); RDW Coefficient Variation 19.9 % (11.7-14.2); Red Blood Cell Count 2.35 M/mm3 (3.80-5.20); White Blood Cell Count 10.26 K/mm3 (4.00-11.30)
[2025-02-12 05:05] LABS: Albumin, Blood 2.7 g/dL (3.4-5.0); Anion Gap 11 mmol/L (3-11); Blood Urea Nitrogen 90 mg/dL (8-24); Bun/Creatinine Ratio 38.1 (12.0-20.0); CO2, Blood 28 mmol/L (21-32); Calcium, Blood 9.1 mg/dL (8.5-10.1); Chloride, Blood 99 mmol/L (98-108); Creatinine, Blood 2.36 mg/dL (0.40-1.00); Glomerular Filtration Rate 24 (60-); Glucose, Blood 244 mg/dL (70-99); Magnesium, Blood 2.5 mg/dL (1.6-2.4); Potassium, Blood 3.3 mmol/L (3.5-5.5); Sodium, Blood 135 mmol/L (136-145)
[2025-02-12] MEDS ORDERED: Potassium Chl 20MEQ/Water100ML 100 ML IV ONE (05:45)
--- NOTE | 2025-02-12 06:05 | NUR ---
SHIFT SUMMARY NO ACUTE CHANGES THIS SHIFT, REMAINS ON VENT VIA TRACH, CHANGED FROM SPONT TO AC/VC LORENZO RT AT 2130 FOR PT TO REST DURING HS SHIFT, PT TOLERATED WELL, TURNED AND REPOSITIONED EVERY 2 HOURS, TMAX 100.6f, ST 100-110s, BP MAP >65 WITH LEVOPHED GTT TITRATED AND INFUSING PER EMAR, GIVEN COMPLETE BEDBATH, GOWN AND SHEETS CHANGED, HAIR WASHED, ORAL CARE DONE, SCDs TO BLE ON, LEFT NARE NGT PATENT AND SECURED TO NOSE WITH TAPE AT 60 CM, NEPRO INFUSING AT GOAL RATE OF 30 ML/HR WITH 30 ML H2O FLUSHED EVERY 4 HOURS, NO RESIDUAL NOTED, HOB UP 45 DEGREES, SIDE RAILS UP X3
--- NOTE | 2025-02-12 06:12 | NUR ---
UPDATE CALLED AM LABS TO DR SANTANA WITH NEW ORDERS RECEIVED FOR POTASSIUM REPLACEMENT
--- NOTE | 2025-02-12 08:30 | NUR ---
[place] of care: Will open eyes spontaneously & track. Wiggles toes bilat LE. Does not move upper extremities or follow commands. In NSR in 90 to low 100s. Blood pressures stable on low dose norepi gtt. #6 shiley secure & intact. On ACVC 22/390/8/40%. Coarse lung sounds. Anuric. Rectal tube & dobhoff in place with TF infusing at goal. PICC & HD cath. Will continue to monitor. To get second dose of IVIG today.
[2025-02-12] MEDS ORDERED: IMMUN GLOB G(IGG)/PRO/IGA 0-50 100 ML IV SCH (09:00)
[2025-02-12] MEDS ORDERED: Albumin (Human) 25gm/100ml 100 ML IV ONE (11:10)
[2025-02-12] MEDS ORDERED: FentaNYL Citrate 50 MCG/ML 2 ML Injection IV PRN ×2 (11:45→15:50)
[2025-02-12] MEDS ORDERED: Sevelamer Carbonate 2.4 GM / PKT PT SCH (14:00)
--- NOTE | 2025-02-12 15:40 | NUR ---
Nofitied Dr. Proctor that pt's HR is sustaining in 130s, sinus tach. He states he will order some prn versed.
[2025-02-12] MEDS ORDERED: Midazolam HCl 1MG / ML 2ML Vial IV PRN (15:55)
[2025-02-12] MEDS ORDERED: Heparin Sodium,Porcine 5,000 UNIT/0.5 ML SDV SC SCH (16:00)
--- NOTE | 2025-02-12 17:35 | NUR ---
Shift summary: More awake throughout the day. Intermittently wiggles toes & financial assistance advisor with L hand. Tracks. Tmax 101.6. OOB to chair with lift for ~ [address] from 110-130: Dr. Proctor made aware. Off norepi gtt for part of the day but re-started d/t MAPs of 60. On PSV 20/8, 40% for a couple of hours but began to de-saturate with RR in 45-50 range so placed back on ACVC 22/390/8/40%. Coarse breath sounds but not a lot of secretions. Recal tube discontinued d/t zero output. Anuric. No HD today. Nepro infusing at 40cc/hr per new orders. PICC & HD cath secure & in place. PRN fent/versed for pain. Will continue to monitor.
[2025-02-12] MEDS ORDERED: Famotidine 20 MG Tab PT SCH (21:00)
[2025-02-12] MEDS ORDERED: Lactobacil 2-S.Thermo-Bifido 1 1 Cap PT SCH (21:00)
[2025-02-13] VITALS (65 sets, daily range): BP systolic 69–142; BP diastolic 53–86
[2025-02-13 05:20] LABS: BASOPHILS ABSOLUTE AUTO 0.06 K/mm3 (0.00-0.23); BASOPHILS PERCENT AUTO 1 % (0-2); EOSINOPHILS ABSOLUTE AUTO 0.27 K/mm3 (0.00-0.68); EOSINOPHILS PERCENT AUTO 3 % (0-6); Hematocrit 24.1 % (33.0-51.0); Hemoglobin 7.5 g/dL (11.5-16.0); IMMATURE GRAN ABSOLUTE AUTO 0.19 K/mm3 (0.00-0.10); IMMATURE GRAN PERCENT AUTO 2 % (0-1); LYMPHOCYTES ABSOLUTE AUTO 0.93 K/mm3 (0.84-5.20); LYMPHOCYTES PERCENT AUTO 9 % (21-46); MONOCYTES ABSOLUTE AUTO 0.59 K/mm3 (0.16-1.47); MONOCYTES PERCENT AUTO 6 % (4-13); Mean Corpuscular HGB 31.8 pg (26.0-34.0); Mean Corpuscular HGB Conc 31.1 g/dL (31.5-36.5); Mean Corpuscular Volume 102 fL (80-100); Mean Platelet Volume 9.9 fL (9.1-12.4); NEUTROPHILS ABSOLUTE AUTO 8.15 K/mm3 (1.96-9.15); NEUTROPHILS PERCENT AUTO 80 % (41-73); Platelet Count 348 K/mm3 (150-400); RDW Coefficient Variation 19.9 % (11.7-14.2); RDW Standard Deviation 62.1 fL (35.1-46.3); Red Blood Cell Count 2.36 M/mm3 (3.80-5.20); White Blood Cell Count 10.19 K/mm3 (4.00-11.30)
[2025-02-13 05:38] LABS: Albumin, Blood 2.6 g/dL (3.4-5.0); Anion Gap 14 mmol/L (3-11); Blood Urea Nitrogen 121 mg/dL (8-24); Bun/Creatinine Ratio 41.2 (12.0-20.0); CO2, Blood 26 mmol/L (21-32); Calcium, Blood 9.1 mg/dL (8.5-10.1); Chloride, Blood 98 mmol/L (98-108); Creatinine, Blood 2.94 mg/dL (0.40-1.00); Glomerular Filtration Rate 19 (60-); Glucose, Blood 268 mg/dL (70-99); Magnesium, Blood 2.7 mg/dL (1.6-2.4); Potassium, Blood 3.4 mmol/L (3.5-5.5); Sodium, Blood 135 mmol/L (136-145)
[2025-02-13] MEDS ORDERED: Potassium Chl 20MEQ/Water100ML 100 ML IV ONE (05:50)
--- NOTE | 2025-02-13 06:12 | NUR ---
SHIFT SUMMARY NO ACUTE CHANGES THIS SHIFT, PT INTERMITTENT WITH MOVEMENTS OF TOES, SHAKING HEAD AND SEJAL HAND GRASP, REMAINS WEAK, TRACKS WITH EYES AND VERY EXPRESSIVE WITH FACE, SMILING, GRIMACES, RAISING EYEBROWS, ST 104-120s, MEDICATED WITH VERSED 4 MG X1 WITH NOTED HT 126 BPM, EFFECTIVED FOR PT TO REST AND HR DOWN TO 104-110s, BP MAP > 65, LEVOPHED ON STANDBY AT 0145, REMAINS ON VENT VIA TRACH, AC/VC 40%, RATE 22, PEEP 10, TV 390, TOLERATING WELL, TMAX 100.9f, RECTAL TUBE PLACED AFTER PT HAD X3 LARGE LOOSE WATERY BM, PT GIVEN COMPLETE BED BATH, GOWN AND SHEETS CHANGED, AM LABS CALLED TO DR SANTANA WITH NEW ORDERS RECEIVED FOR POTASSIUM REPLACEMENT AND I UNIT PRBC TO BE GIVEN TO
[2025-02-13] MEDS ORDERED: Atorvastatin 40 MG Tab PT SCH (09:00)
[2025-02-13] MEDS ORDERED: Aspirin 81 MG Chew PT SCH (09:00)
--- NOTE | 2025-02-13 11:05 | NUR ---
Pt has been alert this morning, but minimally responsive. Tracking movement of staff in the room and at bedside readily with her eyes. Does move her feet and also slight movement spontaneously of her left hand, but did not health safety engineer my hands to command. Afebrile, Sinus tachycardia 108-117 bpm noted by monitoring. Blood pressure is stable. Tolerating the IGG infusion at this time. Plan for dialysis 11 or 1130 this morning per applied marine physics professor.
[2025-02-13] MEDS ORDERED: Albumin (Human) 25gm/100ml 100 ML IV ONE (12:55)
--- NOTE | 2025-02-13 18:37 | NUR ---
Pt had leaking around the rectal tube twice this afternoon. It was removed and replaced with a new one at 1815 due to concerns of continual leaking. Pericare, skin care completed and barrier cream applied to perineal area, perianal area and mepilex on the coccyx was also replaced due to soiling. Pt was repositioned on the right lying side. Her vent settings are unchanged from this morning. She did take a break from the vent today, per RT and was on spontaneous respirations with 40% fio2 for some time today. Heart rate today has ranged from 108-120 bpm roughly, sinus tachycardia. Increased heart rate and respirations noted during patient care and repositioning. She also had low blood pressures during dialysis, requiring the use of levophed, which is slowly being titrated down now that dialysis is over and her blood pressure seems to be stable. Son visited today and pt showed some spontaneous movement of her left hand, and was attempting to have some conversation with him, although this was quite weak. Tube feeding continues to run at goal rate of 40 with intermittend water flushes.Dobhoff tube is at 60 cm at the nare.
[2025-02-13] MEDS ORDERED: Insulin Glargine-Yfgn 100 Unit/mL 3 ML SYR SC SCH (21:00)
[2025-02-14] VITALS (73 sets, daily range): BP systolic 92–1038; BP diastolic 51–99
[2025-02-14 04:33] LABS: BASOPHILS ABSOLUTE AUTO 0.07 K/mm3 (0.00-0.23); BASOPHILS PERCENT AUTO 1 % (0-2); EOSINOPHILS ABSOLUTE AUTO 0.23 K/mm3 (0.00-0.68); EOSINOPHILS PERCENT AUTO 2 % (0-6); Hemoglobin 7.9 g/dL (11.5-16.0); IMMATURE GRAN ABSOLUTE AUTO 0.13 K/mm3 (0.00-0.10); IMMATURE GRAN PERCENT AUTO 1 % (0-1); LYMPHOCYTES ABSOLUTE AUTO 0.93 K/mm3 (0.84-5.20); LYMPHOCYTES PERCENT AUTO 10 % (21-46); MONOCYTES ABSOLUTE AUTO 0.61 K/mm3 (0.16-1.47); MONOCYTES PERCENT AUTO 6 % (4-13); Mean Corpuscular HGB 31.1 pg (26.0-34.0); Mean Corpuscular HGB Conc 31.6 g/dL (31.5-36.5); Mean Corpuscular Volume 98 fL (80-100); Mean Platelet Volume 9.8 fL (9.1-12.4); NEUTROPHILS ABSOLUTE AUTO 7.84 K/mm3 (1.96-9.15); NEUTROPHILS PERCENT AUTO 80 % (41-73); Platelet Count 383 K/mm3 (150-400); RDW Standard Deviation 66.3 fL (35.1-46.3); Red Blood Cell Count 2.54 M/mm3 (3.80-5.20); White Blood Cell Count 9.81 K/mm3 (4.00-11.30)
[2025-02-14 04:54] LABS: Albumin, Blood 2.5 g/dL (3.4-5.0); Anion Gap 12 mmol/L (3-11); Blood Urea Nitrogen 88 mg/dL (8-24); Bun/Creatinine Ratio 37.6 (12.0-20.0); CO2, Blood 27 mmol/L (21-32); Calcium, Blood 8.8 mg/dL (8.5-10.1); Chloride, Blood 98 mmol/L (98-108); Creatinine, Blood 2.34 mg/dL (0.40-1.00); Glomerular Filtration Rate 25 (60-); Glucose, Blood 179 mg/dL (70-99); Magnesium, Blood 2.5 mg/dL (1.6-2.4); Phosphorus, Blood 3.9 mg/dL (2.5-4.9); Potassium, Blood 3.4 mmol/L (3.5-5.5); Sodium, Blood 134 mmol/L (136-145)
[2025-02-14] MEDS ORDERED: Potassium Chl 20MEQ/Water100ML 100 ML IV ONE (06:05)
--- NOTE | 2025-02-14 06:49 | NUR ---
END OF SHIFT: THIS PT RESTED MOST OF THE NIGHT AND NO ACUTE EVENTS OCCURRED. SHE REMAINS ON THE VENTILATOR. LEVOPHED GTT WAS ON MOST OF THE NIGHT BUT PUT ON STANDBY IN EARLY AM. POTASSIUM REPLACEMENT RUNNING NOW. PT HAS BEEN SINUS TACH RHYTHM AND SATTING 90% AND ABOVE ON CURRENT VENT SETTINGS. SHE WAS UNABLE TO FOLLOW COMMANDS FOR ME BUT DOES TRACK WITH EYES. BED BATH GIVEN OVERNIGHT AND LINENS CHANGED.
--- NOTE | 2025-02-14 07:49 | NUR ---
ASSUMPTION OF CARE: ASSUMED CARE OF PATIENT. PATIENT RESTING CALMLY IN BED. PATIENT TRACKING THE RN WHEN SHE IS SPEAKING TO THE PATIENT. PATIENT CURRENTLY ON A SPONTANEOUS BREATHING TRIAL. RR IN THE LOW 30S. PATIENT APPEARS TO BE BREATHING WITHOUT DISTRESS. SPO2 >92%. VITALS ARE STABLE WITH MAPS >65. HR IN THE LOW 100S. LEVOPHED ON STANDBY. RECTAL TUBE IN PLACE. SHIN IN PLACE.
--- NOTE | 2025-02-14 08:15 | NUR ---
CHANGING OF TRACH AND BRONCHOSCOPY: 0823: DR MAY AND RT AT BEDSIDE TO CHANGE OUT TRACH AND PERFORM BRONCHOSCOPY. PRE-PROCEDURE OF 50 MCG OF FENTANYL GIVEN. SPONTANEOUS BREATHING TRIAL SUSPENDED PRIOR TO INITIATION. DR. MAY REPLACED TRACH WITH ANOTHER 6 SHILEY CUFFED TRACHEOSTOMY TUBE. 0825: BRONCHOSCOPY TUBE PASSED INTO AIRWAY. SALINE UTILIZED TO CLEAR SECRETIONS. 0831: PROCEDURE COMPLETE. PATIENT TOLERATED WELL. VITALS STABLE WITH MAPS >65. SPO2 >90%. HR IN THE LOW 100S. RR IN THE HIGH 20S TO LOW 30S.
--- NOTE | 2025-02-14 13:03 | NUR ---
SPONTANEOUS BREATHING TRIAL: SPONTANEOUS BREATHING TRIAL STARTED AGAIN AT 10:50. SETTINGS: 20/8/45%. SPO2 88-93%. RR 25-31. NO SIGNS OF RESPIRATORY DISTRESS. VOLUMES IN THE 350S-450S.
--- NOTE | 2025-02-14 13:55 | NUR ---
Spiritual Care Visit. Pt. is intubated but is otherwise alert and responsive communicating with nods and eye movements. Pt. welcomed prayer. Prayed with Pt. and will remain available to the Pt. and family.
[2025-02-14] MEDS ORDERED: Albumin (Human) 25gm/100ml 100 ML IV SCH (14:35)
--- NOTE | 2025-02-14 18:51 | NUR ---
SHIFT SUMMARY: NEURO: PATIENT RESPONDS TO VERBAL STIMULI. PATIENT FOLLOWING COMMANDS OF SQUEEZING BILATERAL HANDS, WIGGLING RIGHT TOES AND RAISING EYEBROWS. PATIENT SMILES AT TIMES IN RESPONSE TO STAFF AND FAMILY. PATIENT SEEMS TO BE NODDING IN REPONSE TO SOME YES/NO QUESTIONS. PATIENT PROFOUNDLY WEAK. ANTI-FOOT DROP BOOTS IN PLACE. PATIENT UP TO THE CHAIR ON THE FULL LENGTH WAFFLE SHEET. PATIENT TURNED Q2HR. WOUND ON COCCYX PHOTOGRAPED, DRESSING CHANGED AND SKIN CARE PROVIDED. RESPIRATORY: PATIENT ON SPONTANEOUS STARTING AT 10:05 AND CURRENTLY. SETTINGS 20/8/45%. RR IN THE MID 20S TO LOW 30S THROUGHOUT THE SHIFT. SPO2 >90% FOR THE MAJORITY OF THE SHIFT. TRACH REPLACED BY DR. MAY (SEE NURSE'S NOTE) CARDIAC: BLOOD PRESSURES STABLE THROUGHOUT THE SHIFT WITH MAPS >65. HR IN THE LOW 100'S. SINUS TACH THROUGHOUT THE SHIFT. GI/: NEPRO TUBE FEED CONTINUES AT GOAL OF 40 ML/HR. DOBHOFF IN PLACE AT 60 CM. DRESSING CHANGED ON NOSE. RECTAL TUBE IN PLACE WITH LIQUID BROWN STOOL PRESENT IN TUBING AND COLLECTION BAG. 100 ML OF STOOL OUT DURING SHIFT. SHIN IN PLACE. MINIMAL OUTPUT (20 ML) THROUGHOUT THE SHIFT. PATIENT RECEIVED HD THIS AFTERNOON. URINE IS DARK TEA IN COLOR. PSYCHSOCIAL: PATIENT SMILED LARGELY WITH PRESENCE OF FAMILY AND FRIENDS. UNABLE TO FULLY ASSESS PSYCHSOCIAL DURING THE SHIFT.
[2025-02-15] VITALS (66 sets, daily range): BP systolic 81–149; BP diastolic 45–81
[2025-02-15 06:25] LABS: BASOPHILS ABSOLUTE AUTO 0.09 K/mm3 (0.00-0.23); BASOPHILS PERCENT AUTO 1 % (0-2); EOSINOPHILS PERCENT AUTO 1 % (0-6); Hematocrit 25.5 % (33.0-51.0); IMMATURE GRAN ABSOLUTE AUTO 0.09 K/mm3 (0.00-0.10); IMMATURE GRAN PERCENT AUTO 1 % (0-1); LYMPHOCYTES ABSOLUTE AUTO 0.74 K/mm3 (0.84-5.20); LYMPHOCYTES PERCENT AUTO 9 % (21-46); MONOCYTES ABSOLUTE AUTO 0.62 K/mm3 (0.16-1.47); MONOCYTES PERCENT AUTO 7 % (4-13); Mean Corpuscular HGB 31.9 pg (26.0-34.0); Mean Corpuscular HGB Conc 31.4 g/dL (31.5-36.5); Mean Corpuscular Volume 102 fL (80-100); Mean Platelet Volume 9.9 fL (9.1-12.4); NEUTROPHILS ABSOLUTE AUTO 6.69 K/mm3 (1.96-9.15); NEUTROPHILS PERCENT AUTO 80 % (41-73); Platelet Count 448 K/mm3 (150-400); RDW Coefficient Variation 21.2 % (11.7-14.2); RDW Standard Deviation 73.9 fL (35.1-46.3); Red Blood Cell Count 2.51 M/mm3 (3.80-5.20); White Blood Cell Count 8.33 K/mm3 (4.00-11.30)
--- NOTE | 2025-02-15 06:32 | NUR ---
SHIFT SUMMARY: THIS PT SEEMS TO BE IMPROVING NEUROLOGICALLY, SHE IS ABLE TO FOLLOW COMMANDS ON RUE, LUE, AND RLE. UPON SPEAKING TO FAMILY AT BEGINNING OF SHIFT, THERE IS LLE NERVE DAMAGE AND SHE HAS PROBLEMS MOVING IT. SHE LOOKS IF SHE CAN ANSWER YES OR NO QUESTIONS WELL. SHE REMAINS ON THE VENTILATOR WITH TRACH. LEVOPHED GTT WAS ON FOR ABOUT 4 HOURS BUT IS CURRENTLY ON STANDBY. SHIN AND RECTAL TUBE IN PLACE. LINENS CHANGED AND PARTIAL BATH GIVEN OVERNIGHT. NO ACUTE EVENTS.
[2025-02-15 06:34] LABS: Albumin, Blood 2.9 g/dL (3.4-5.0); Anion Gap 9 mmol/L (3-11); Blood Urea Nitrogen 66 mg/dL (8-24); Bun/Creatinine Ratio 34.7 (12.0-20.0); CO2, Blood 31 mmol/L (21-32); Calcium, Blood 9.4 mg/dL (8.5-10.1); Chloride, Blood 99 mmol/L (98-108); Glomerular Filtration Rate 32 (60-); Glucose, Blood 179 mg/dL (70-99); Magnesium, Blood 2.6 mg/dL (1.6-2.4); Phosphorus, Blood 3.3 mg/dL (2.5-4.9); Potassium, Blood 3.3 mmol/L (3.5-5.5); Sodium, Blood 136 mmol/L (136-145)
[2025-02-15] MEDS ORDERED: Potassium Chl 20MEQ/Water100ML 100 ML IV ONE (06:40)
--- NOTE | 2025-02-15 15:53 | NUR ---
SHIFT SUMMARY NEURO:PATIENT AWAKE MOST OF THE MORNING AND EARLY AFTERNOON. FOLLOWING COMMANDS INTERMITTENTLY IE BILATERAL HAND AUTOMOTIVE SERVICE PROFESSIONAL AND MOVING RLE. ABLE TO NOD YES AND NO AT TIMES, PT IS PROFOUNDLY WEAK UNABLE TO PARTICIPATE IN ORIENTATION QUESTIONS. PT REMAINED AFEBRILE THIS SHIFT. CARDIAC: PT SBP 90-120S MAP REMAINED >65. LEVO ON SB ALL SHIFT, NOT RESTARTED. SINUS TACHY HR 90-110S TODAY. LUNGS: COARSE THROUGH OUT THIS MORNING, CLEAR THIS AFTERNOON. MINIMAL THICK SECREATIONS THIS MORNING. PT SPO2 REMAINED >95% TODAY. PT SWITCHED TO SPONTANEOUS SETTING THIS AM AND TOLEARTING WELL ALL DAY. FIO2 DECREASED TO 35% APPROX 1530. GI: MINIMAL STOOL OUTPUT TODAY, RECTAL TUBE IN PLACE : ANURIC, NO DIALYSIS TODAY. SHIN CATHETER REMOVED THIS MORNING. SKIN: STG 2 PRESSURE INJURY TO COCCYX. PT TURNED Q2. FAMILY INTO VISIT TODAY, AND SONS. PT INTERACTIVE WITH BUT BECAME FATIGUED LATE AFTERNOON/EVENING.
[2025-02-15] MEDS ORDERED: Ondansetron HCl 2 MG / ML 2ML Vial IV PRN (17:45)
[2025-02-15] MEDS ORDERED: Arginine/Glutamine/Calcium Hmb 1 Packet PT SCH (21:00)
[2025-02-16] VITALS (75 sets, daily range): BP systolic 81–140; BP diastolic 46–92
[2025-02-16 03:36] LABS: Hematocrit 25.6 % (33.0-51.0)
[2025-02-16 03:54] LABS: Albumin, Blood 2.5 g/dL (3.4-5.0); Anion Gap 12 mmol/L (3-11); Blood Urea Nitrogen 97 mg/dL (8-24); Bun/Creatinine Ratio 39.4 (12.0-20.0); CO2, Blood 28 mmol/L (21-32); Calcium, Blood 9.4 mg/dL (8.5-10.1); Chloride, Blood 100 mmol/L (98-108); Creatinine, Blood 2.46 mg/dL (0.40-1.00); Glomerular Filtration Rate 23 (60-); Glucose, Blood 195 mg/dL (70-99); Magnesium, Blood 2.6 mg/dL (1.6-2.4); Phosphorus, Blood 4.7 mg/dL (2.5-4.9); Sodium, Blood 136 mmol/L (136-145)
--- NOTE | 2025-02-16 06:13 | NUR ---
SHIFT SUMMARY PATIENT ALERT AND ORIENTED TO SELF AND FOLLOWING SIMPLE COMMANDS, NODS YES/NO TO QUESTIONS. NO MOVEMENT IN LLE, MOVEMENT IN ALL OTHER EXTREMITIES BUT REMAINS VERY WEAK. SP02 94% ON VENT, REMIANED ON SPONTANEOUS MOST THE NIGHT, CHANGED TO AC PC 20/18/8/35% THIS AM DUE TO INCREASED RR AND WORK OF BREATHING, TOLERATING WELL. CLEANED AROUND TRACH SITE, GEL PAD IN PLACE DUE TO WOUNDS FROM TRACH. HR SR 110-120s, BP STABLE THROUGH THE NIGHT. DOBHOFF WITH TF AT GOAL. RECTAL TUBE WITH MINIMAL LIQUID BROWN OUTPUT. BEDBATH DONE AND MEPILEX CHANGED ON COCCYX. COOLING BLANKET OFF MOST THE NIGHT, THIS MORNING PATIENTS TEMP 100.0 AND COOLING BLANKET TURNED BACK ON. PATIENT REPOSITIONED EVERY TWO HOURS.
[2025-02-16] MEDS ORDERED: Albumin (Human) 25gm/100ml 100 ML IV PRN (08:15)
[2025-02-16] MEDS ORDERED: Metoprolol Tartrate 25 MG Tab PO SCH (08:30)
--- NOTE | 2025-02-16 12:38 | NUR ---
CALL PLACED TO IR TO NOTIFY DR SANTANA WOULD LIKE A PERMANENT HD CATH PLACED. MESSAGE TO BE SENT TO DR HERNANDEZ. PT TRIALYSIS CATH IS FUNCTIONAL BUT NEEDING DETENTION ACCESS. PLAN FOR PT TO ALSO HAVE PEG TUBE PLACED TOMORROW BY DR KAMARA.
[2025-02-16] MEDS ORDERED: Protein Supplement 30 ML UD PT SCH (13:00)
--- NOTE | 2025-02-16 14:24 | NUR ---
TRACHEOSTOMY INNER CANNULA NOT IN PLACE WHEN CHANGING INNER CANNULA TODAY. INNER CANNULA PLACED WITH RT A BEDSIDE.
--- NOTE | 2025-02-16 15:27 | NUR ---
SHIFT SUMMARY PT AWAKE MOST OF THE MORNING AND AFTERNOON. FOLLOWING COMMANDS, HAS BILATERAL HAND CUSTOMS BROKERAGE AGENT INTACT. ABLE TO NOD YES/NO. PT IS PROFOUNDLY WEAK UNABLE TO PARTICIPATE IN ORIENTATION QUESTIONS. PT REMAINED AFEBRILE THIS SHIFT. COOLING BLANKET REMOVED IN AM. T98-99. PT UNABLE TO MOVE LLE, DID NOT WITHDRAW FROM PAIN. RLE MOVING, VERY WEAK. CARDIAC: SBP 90-120S, MAP REMAINED >65%. SINUS TACH HR 100S-120S. TODAY. PULMONARY: LUNGS INTERMITTENTLY COARSE L/RUL'S. BASES CLEAR/DIM. MINMAL SECREATIONS. ON SPONTANEOUS VENT SETTING MOST THE DAY. FIO2 INCREASED TO 45% AFTER BED BATH/INNER CANNULA CHANGE. GI: RECTAL TUBE REMOVED TODAY, SMALL AMT OF STOOL IN THE TUBING LINE. : ANURIC, NO UOP TODAY. SKIN: SCATTERERED ECCYMOSIS TO ABDOMEN AT PRIOR INJECTION SITES. EXCORIATION TO R GLUTEAL FOLD CLEANSED AND MEPLIEX PLACED. STG 2 PRESSURE INJURY TO COCCYX. CLEANSED, PATTED DRY, APPLIED ALGINATE TO WOUND BED AND NEW MEPILEX FOAM. FAMILY INTO VISIT THIS MORNING. PLAN: PEG TUBE PLACEMENT TOMORROW. PHONE CALL WITH DR HERNANDEZ DIALYSIS CATH LIKE WILL BE PLACED ON WEDNESDAY. HAD A MEETING WITH MEDICARE TODAY.
--- NOTE | 2025-02-16 21:30 | NUR ---
ASSUMPTION OF CARE: ASSUMED CARE OF PT AT 1900. PT ALERT, OPENS EYES SPONTANEOUSLY, NODS TO SOME QUESTIONS. ABLE TO CROP PICKER RNS HANDS, FOLLOWS SOME COMMANDS. BLE FLACCID, PT DOES RETRACT/GRIMACE WHEN HER FEET ARE TOUCHED. LEGS REPOSITIONED. PT LUNGS COARSE IN BILAT UPPER LOBES, WHEEZING AUSCULTATED T/O. DAY SHIFT RN ADMINISTERED FENTANYL, SEE EMAR, PRIOR TO LEAVING. PT RR WAS IN HIGH 40S. TRACH REMAINS IN PLACE. PT RESTING MORE COMFORTABLY AND RR IN HIGH 20S-30S AFTER FENTANYL. HR SINUS TACHY IN 120S. BOWEL TONES HYPOACTIVE.PT HAS DOBHOFF, NEPRO RUNNING AT 25ML/HR. PT RECEIVED DIALYSIS TODAY. PICC LINE REMAINS IN KAE. PLAN FOR PT TO STOP FEEDINGS AT MIDNIGHT TONIGHT FOR PEG TUBE PLACEMENT PROCEDURE TOMORROW. THIS RN TO CONTINUE TO MONITOR.
[2025-02-17] VITALS (85 sets, daily range): BP systolic 75–171; BP diastolic 52–92
[2025-02-17 04:02] LABS: Hematocrit 24.3 % (33.0-51.0); Hemoglobin 7.6 g/dL (11.5-16.0)
[2025-02-17 04:18] LABS: Albumin, Blood 2.9 g/dL (3.4-5.0); Anion Gap 11 mmol/L (3-11); Blood Urea Nitrogen 97 mg/dL (8-24); Bun/Creatinine Ratio 43.5 (12.0-20.0); CO2, Blood 29 mmol/L (21-32); Calcium, Blood 9.6 mg/dL (8.5-10.1); Chloride, Blood 102 mmol/L (98-108); Creatinine, Blood 2.23 mg/dL (0.40-1.00); Glomerular Filtration Rate 26 (60-); Glucose, Blood 130 mg/dL (70-99); Magnesium, Blood 2.7 mg/dL (1.6-2.4); Phosphorus, Blood 3.5 mg/dL (2.5-4.9); Potassium, Blood 4.1 mmol/L (3.5-5.5); Sodium, Blood 138 mmol/L (136-145)
--- NOTE | 2025-02-17 05:18 | NUR ---
SHIFT SUMMARY: PT REMAINS ALERT TO SELF ONLY, FOLLOWS SOME SIMPLE COMMANDS AND WILL NOD HEAD YES,OR SHAKE NO, SOME OF THE TIME. PT OBSERVED TO HAVE SPORADIC MOVEMENTS OF UPPER AND LOWER EXTREMITIES, CAN PRINCIPAL SECURITY ARCHITECT RNS HANDS AT TIMES. PT REMAINS W/TRACH IN PLACE, VENT SETTINGS UNCHANGED THROUGHOUT SHIFT. LUNGS REMAIN COARS IN UPPER LOBES, DIMINISHED AT BASES. WHEEZING NO LONGER AUSCULTATED. CONTINUES TO HAVE RR IN 20-30S. HR SINUS TACH. PULSE REMAINS 100-120S.SBP 90S-120S. CONTINUOUS TUBE FEED STOPPED AT MIDNIGHT PER ORDERS. PICC IN KAE, REMAINS IN PLACE AND WNL. NOTHING INFUSING AT THIS TIME. THIS RN TO REPORT TO ONCOMING RN.
[2025-02-17] MEDS ORDERED: Lactated Ringer's 1,000 ML IV SCH (07:55)
[2025-02-17] MEDS ORDERED: Clindamycin 600mg in D5W 50 ML IV SCH (07:55)
--- NOTE | 2025-02-17 08:30 | NUR ---
DR KAMARA AT BEDSIDE PLACING A PEG TUBE, ANESTHESIA PRESENT TO MANANAGE PROCEDURAL ANESTHESIA. DOBHOFF REMOVED DURING PROCEDURE. AM MEDS HELD. PER DR KAMARA OK TO USE PEG TUBE AFTER 6HRS.
--- NOTE | 2025-02-17 09:11 | NUR ---
02/17/25 0911 Norbert Schulz History, Chart, Medications and Allergies reviewed before start of procedure.See Anesthesia record
--- NOTE | 2025-02-17 09:18 | NUR ---
FLUSHED PICC LINE X1 WITH 10NS AND RIJ IV WITH 10NS/PATENT.
--- NOTE | 2025-02-17 13:37 | NUR ---
NEW TRACH DURING BEDBATH AND TURNS THIS RN MAINTAINED VISUALIZATION OF TRACH AND VENT. AFTER MULTPLE FULL SIDE TO SIDE TURNS PT BEGAN DESATURATING AND NOTED PT SPEAKING. PT WITH LARGE AMOUNT OF AIR MOVEMENT FROM MOUTH/NARES. RT AND DR RIVERA NOTIFIED. ENTIRE TRACH APPLIANCE REMOVED AND NEW 6.[address] RIVERA WITH IMMEDIATE IMPROVEMENT OF SEAL WITH CUFF INFLATED. PT SPO2 IMPROVED RAPIDLY AFTER NEW TRACH PLACED. DISCUSSED EVENTS AND VISUALIZATION LEADING TO TRACH DISLODGEMENT AND DECISION MADE BY DR RIVERA TO PLACE LARGER TRACH. 6.0 SHILEY REMOVED AGAIN, BY DR RIVERA, AND 8.0 XLT TRACH PLACED AT THIS TIME. PT REMAINS ON AC/VC VENT SETTINGS. VSS. WILL CONTINUE TO MONITOR.
--- NOTE | 2025-02-17 16:33 | NUR ---
SHIFT SUMMARY NEURO: PT AWAKE AND ALERT. UNABLE TO ANSWER ORIENTATION QUESTIONS DUE TO TRACHESOSTOMY. ABLE TO NOD YES/NO. DID SPEAK BRIFELY WHILE TRACH WAS CHANGED. MOVING ALL EXTREMITIES EXCEPT LLE. PT HAS PROFOUND WEAKNESS. IMPROVMENT IN LUE ROM TODAY. UNABLE TO LIFT AND MOVE HER HEAD OR TRUNK. MOOD IMPROVED PT MAKING FACES WITH YES/NO NODDING TODAY AND LIP SYNCING TO MUSIC ON TV. LOW GRADE FEVER THIS AM, RESOLVED THIS AFTERNOON. CARDIAC: SBP 120-150S, HR 122. SINUSH RHYTHM PULMONARY: COARSE/WHEEZES BILAT UPPER LOBES. DIM IN BASES. DENIES ANY SOB, STATED TRACH WAS CHANGED - NOW SHILEY 6.0 XLT PROXIMAL. NO CHANGE IN VENT SETTINGS. SPO2 >92% . RR 20-30S GI: NORMOACTIVE BOWEL TONES, ABDO IS SOFT/NON TENDER WITH NORMOACTIVE BOWEL TONES. : ANURIC, NO UOP TODAY. FAMILY - AND SON INTO VISIT THIS MORNING. PEG TUBE PLACED THIS AM, TUBE FEEDS RESTARTED AT 1530. NEPHPRO @25ML/HR
--- NOTE | 2025-02-17 17:07 | NUR ---
BG REPEATED SAMPLE WAS INCIDENTALLY DILUTTED.SECOND SAMPLE COLLECTED FROM ANOTHER SITE AND WITHIN NORMAL RANGE.
[2025-02-18] VITALS (45 sets, daily range): BP systolic 81–135; BP diastolic 51–83
[2025-02-18 03:24] LABS: Hematocrit 25.6 % (33.0-51.0)
[2025-02-18 03:47] LABS: Albumin, Blood 2.8 g/dL (3.4-5.0); Anion Gap 13 mmol/L (3-11); Blood Urea Nitrogen 133 mg/dL (8-24); Bun/Creatinine Ratio 42.9 (12.0-20.0); CO2, Blood 27 mmol/L (21-32); Calcium, Blood 9.8 mg/dL (8.5-10.1); Chloride, Blood 100 mmol/L (98-108); Glomerular Filtration Rate 18 (60-); Glucose, Blood 136 mg/dL (70-99); Magnesium, Blood 2.9 mg/dL (1.6-2.4); Phosphorus, Blood 5.2 mg/dL (2.5-4.9); Potassium, Blood 4.9 mmol/L (3.5-5.5); Sodium, Blood 135 mmol/L (136-145)
--- NOTE | 2025-02-18 05:34 | NUR ---
SHIFT SUMMERY PT HAS BEEN AWAKE AND ALERT, FOLLOWING DIRECTIONS AND NODDING YES/NO APPROPRIATLY. PT HAS TRACH INTACT AND PATENT TO THE VENT. OXYGEN SAT >92%. PT HAS BEEN ST ON THE CLINIC COORDINATOR. BP WNL. ANURINC. RECTAL TUBE INTACT AND DRAINING TO GRAVITY. NO ACUTE CHANGES OVERNIGHT. TF INFUSING VIA PEG TUBE W/OUT DIFFICULTY. PT TOLERATING WELL.
[2025-02-18] MEDS ORDERED: Metoprolol Tartrate 25 MG Tab PT ONE (08:55)
[2025-02-18] MEDS ORDERED: Insulin Regular 100 UNIT/ML 10ML Vial SC SCH (12:00)
--- NOTE | 2025-02-18 12:39 | NUR ---
TENA WHEN PT WAS ABOUT [facility] THROUGH DIALYSIS HER PULSE OX DROPPED TO 84%. WENT IN THE ROOM TO CHECK ON PT AND SPO2 CONTINUED TO DROP DOWN TO 80%. AT THAT RM, PT'S EYES ALSO ROLLED BACK IN HER HEAD AND SHE BECAME UNRESPONSIVE. 100% FIO2 HIT, CHARGE AND RT CALLED TO BEDSIDE IMMEDIATELY. PT'S HR THEN DROPPED TO THE 40S AND END TIDAL DROPPED TO 19. DR. RIVERA CALLED TO BEDSIDE. DIALYSIS PAUSED AND WHILE CHARGE NURSE GOT DOPPLER TO FIND PULSE, STARTED TO GET READY TO GET PT OUT OF CHAIR FOR CPR. PULSE WAS FOUND AND PT'S HR STARTED CLIMBING. INTIAL BP OBTATINED DURING EPISODE WAS SBP IN THE 50S, REPEAT WAS UP TO THE 80S. PT STARTED TO WAKE UP, STILL DIAPHORETIC. DR. RIVERA GAVE ORDERS TO STOP DIALYSIS FOR TODAY. PT MOVED BACK TO BED WITH THE LIFT. STAT CHEST XR OBTAINED. MAP IS BACK AT 73, HR 104, PT IS AWAKE AND FOLLOWING DIRECTIONS AGAIN.
--- NOTE | 2025-02-18 17:25 | NUR ---
SHIFT SUMMARY PT HAS HAD NO OTHER EVENT SINCE BRADYING DOWN EARLIER THIS SHIFT. SHE HAS BEEN ALERT, FOLLOWS COMMANDS. LUNGS ARE CLEAR THIS EVENING. SMALL AMT OF SPUTUM SUCTIONED AFTER CPT THIS EVENING. SINUS TACH WITH RATE IN THE LOW 100S. MIDODRINE STARTED PER DR. SANTANA. TUBE FEED AT GOAL. PEG TUBE SITE IS C/D/I, DRESSING AROUND SITE CHANGED WITH BATH. DRESSINGS OVER WOUNDS ON BOTTOM CHANGED WITH BATH WELL. PT'S AND SONS HAVE BEEN AT THE BEDSIDE MULTIPLE TIMES THROUGHOUT THE SHIFT. THEY HAVE BEEN UPDATED ON THE EVENTS OF THE DAY AND PLAN OF CARE.
[2025-02-18] MEDS ORDERED: Midodrine 5 MG Tab PT SCH (18:00)
--- NOTE | 2025-02-18 22:53 | NUR ---
ASSUMPTION OF CARE ASSUMED CARE OF PATIENT AT 1900, BEDSIDE SHIFT REPORT RECEIVED FROM LOLA RN. PT RESTING IN BED, ALERT, OPENS EYES SPONTANEOUSLY, PT MAKES EYE CONTACT. PT INCONSISTENTLY ANSWERS QUESTIONS BY NODDING/SHAKING HEAD. PT FOLLOWS SOME COMMANDS. MOVES BUE SPONTANEOUSLY, MOVES RIGHT LEG SPONTANEOUSLY. LEFT FOOT FLACCID WHICH IS PT'S BASELINE. HR 100-110'S SINUS, MAP >65. PT WITH TRACH IN PLACE CONNNECTED TO VENT, VENT SETTINGS AC/VC 20/400/8/50%, OXYGEN SATURATION >94%. TRACH SECURED WITH TRACH COLLAR. ABDOMEN SOFT, BOWEL TONES HYPOACTIVE. PEG TUBE IN PLACE TO RIGHT ABDOMEN, NEPRO TF INFUSING AT GOAL RATE OF 25MLS/HR WITH 30ML Q4H WATER FLUSH. RECTAL TUBE IN PLACE WITH LIQUID BROWN OUTPUT. DIALYSIS PATIENT, NO URINE OUTPUT NOTED. PICC LINE IN PLACE TO KAE RANGEL. TRIALYSIS CATH IN PLACE TO [facility]. BED IN LOWEST POSITION, CARE CONTINUES.
[2025-02-19] VITALS (54 sets, daily range): BP systolic 85–141; BP diastolic 46–85
[2025-02-19 05:45] LABS: Hematocrit 24.9 % (33.0-51.0); Hemoglobin 7.9 g/dL (11.5-16.0)
[2025-02-19 06:06] LABS: Albumin, Blood 2.7 g/dL (3.4-5.0); Anion Gap 14 mmol/L (3-11); Blood Urea Nitrogen 150 mg/dL (8-24); CO2, Blood 28 mmol/L (21-32); Chloride, Blood 95 mmol/L (98-108); Creatinine, Blood 3.26 mg/dL (0.40-1.00); Glomerular Filtration Rate 17 (60-); Glucose, Blood 180 mg/dL (70-99); Magnesium, Blood 2.8 mg/dL (1.6-2.4); Phosphorus, Blood 5.8 mg/dL (2.5-4.9); Potassium, Blood 4.6 mmol/L (3.5-5.5); Sodium, Blood 132 mmol/L (136-145)
--- NOTE | 2025-02-19 06:17 | NUR ---
SHIFT SUMMARY NO ACUTE CHANGES THIS SHIFT. PT CONTINUES TO REST IN BED. PT OPENS EYES, MAKES EYE CONTACT. PT INCONSISTENTLY ANSWERS QUESTIONS BY NODDING/SHAKING HEAD, FOLLOWS DIRECTION WHEN PROMPTED. PT MOVES BUE SPONTANEOUSLY, MOVES RIGHT LEG SPONTANEOUSLY. PT LEFT LEG FLACCID WHICH IS BASELINE FOR HER. HR 100-110'S SINUS, MAP >65. TRACH IN PLACE CONNECTED TO VENT, 20/400/8/50%, OXYGEN SATURATION >92%. ABDOMEN SOFT, BOWEL TONES ACTIVE THROUGHOUT. PEG TUBE IN PLACE TO RIGHT ABDOMEN WITH NEPRO TF INFUSING AT GOAL RATE OF 25MLS/HR WITH 30ML Q4H WATER FLUSH. RECTAL TUBE REPLACED THIS SHFIT. PT HAS MULTIPLE WOUNDS AROUND ANUS, MEPILEX CHANGED THIS SHIFT CREAM APPLIED. PT RECEIVES DIALYSIS, NO URINE OUTPUT. PICC LINE IN PALCE TO KAE, TRIALYSIS CATH IN PLACE TO [facility]. BED IN LOWEST POSITON, CARE CONTINUES.
[2025-02-19] MEDS ORDERED: Midodrine 5 MG Tab PT SCH (09:00)
--- NOTE | 2025-02-19 12:15 | NUR ---
REASSESSMENT PT HAS BEEN RESTING IN BED TODAY. TUBE FEED TURNED OFF AT 0800 IN PREPARATION FOR TUNNEL CATH PLACEMENT TODAY. JUST SPOKE WITH ELECTRONIC LAB TECHNICIAN AND THEY SAID IT WILL BE ANOTHER COUPLE HOURS, SO OK TO GIVE NOON MEDS. PT IS ALERT TODAY, FOLLOWS DIRECTIONS TO MOVE ALL EXTREMITIES EXCEPT LLE, NODDING AND SHAKING HER HEAD TO ANSWER QUESTIONS OCCASIONALLY. SHE DESATURATED TO 84% THIS MORNING, IMPROVEMENT WITH SUCTION AND LAVAGE FROM RT. LUNGS ARE CLEAR, DIM IN THE BASES. SINUS TACH IN THE LOW 100S, MAP 91. RECTAL TUBE DRAINING SMALL AMT OF STOOL. PT'S SON WAS IN THIS MORNING AND WAS UPDATED.
[2025-02-19] MEDS ORDERED: NS 250 ML IV ONE (13:20)
[2025-02-19] MEDS ORDERED: Heparin Sodium 1000 Units/ML 10ML MDV ONE (13:20)
[2025-02-19] MEDS ORDERED: FentaNYL Citrate 50 MCG/ML 2 ML Injection ONE (14:16)
[2025-02-19] MEDS ORDERED: propofoL 50 ML IV ONE (14:16)
[2025-02-19] MEDS ORDERED: Atropine Sulfate 0.1 MG/ML 10ML SYR ONE (14:18)
[2025-02-19] MEDS ORDERED: Phenylephrine HCl 100 MCG/ML-NS 10MLSYR (1MG/10ML) ONE (14:57)
--- NOTE | 2025-02-19 16:48 | NUR ---
SHIFT SUMMARY PT HAD HER TUNNEL CATH PLACED TODAY AND TOLERATED IT WELL. SHE HAS BEEN RESTING WITH EYES CLOSED MOSTLY SINCE RETURNING. HER LUNGS ARE CLEAR, SMALL AMT OF SPUTUM VIA TRACH TODAY. SR IN THE 9OS CURRENTLY, MAP 78, DIALYSIS RUNNING - STAYING IN THE BED AND ON ASSIST CONTROL FOR DIALYSIS TODAY. TUBE FEED WAS ON HOLD BEFORE PROCEDURE AND NOW NECKTIE OPERATOR POCKETS AND PIECES SWITCHED TO BOLUS FEEDS WITH FIRST ONE AT 1700. RECTAL TUBE REMAINS IN PLACE WITH BROWN DRAINAGE. DRESSING AROUND PEG TUBE CHANGED THIS AFTERNOON. . SITE IS CLEAN, SCANT AMT OF SEROUS DRAINAGE RIGHT AT INSERTION SITE.
[2025-02-19] MEDS ORDERED: Insulin Glargine-Yfgn 100 Unit/mL 3 ML SYR SC SCH (21:00)
[2025-02-19] MEDS ORDERED: Protein Supplement 30 ML UD PT SCH (21:00)
[2025-02-20] VITALS (93 sets, daily range): BP systolic 84–167; BP diastolic 48–92
[2025-02-20 03:16] LABS: Hematocrit 26.1 % (33.0-51.0); Hemoglobin 8.1 g/dL (11.5-16.0)
[2025-02-20 03:46] LABS: Albumin, Blood 3.5 g/dL (3.4-5.0); Anion Gap 12 mmol/L (3-11); Blood Urea Nitrogen 92 mg/dL (8-24); Bun/Creatinine Ratio 42.4 (12.0-20.0); CO2, Blood 32 mmol/L (21-32); Calcium, Blood 10.4 mg/dL (8.5-10.1); Chloride, Blood 97 mmol/L (98-108); Creatinine, Blood 2.17 mg/dL (0.40-1.00); Glomerular Filtration Rate 27 (60-); Glucose, Blood 168 mg/dL (70-99); Magnesium, Blood 2.6 mg/dL (1.6-2.4); Phosphorus, Blood 4.5 mg/dL (2.5-4.9); Potassium, Blood 3.6 mmol/L (3.5-5.5); Sodium, Blood 137 mmol/L (136-145)
--- NOTE | 2025-02-20 06:17 | NUR ---
SHIFT SUMMARY PATIENT SLEPT OFF AND ON THROUGH SHIFT. AND SON CAME IN TO SEE HER FOR ABOUT 15 MINUTES TONIGHT. A&O X1 PATEINT HAS TRACH AND IS NOT ABLE TO SPEAK. VENT SETTINGS FOR TRACH SETTINGS 20/400/8/55%. SBP 120-130'S HR IN THE 90'S. HAS A PEG TUBE. pATIENT HAS PICC LINE RIGTH UPPER ARM AND A PERMA TUNNELED CATH IN RIGTH UPPER CHEST. PATEINT WAS GETTING DIALYZED AT STRAT OF SHIFT. DR SANTANA CAME IN @ 6 THIS MORNING AND TOLD NURSE NO DIALYSIS TODAY 02/20/25. CALL LIGHT WITHIN REACH
--- NOTE | 2025-02-20 09:19 | NUR ---
ASSUMED CARE AT 0700 PT LAYING IN BED SLEEPING AT SHIFT CHANGE. SHE IS ON THE VENT VIA TRACH. RESPONDING TO VERBAL STIMULI; ANSWERING SOME Y/N QUESTIONS WITH HEAD NODS. VENT SETTINGS AC/VC 20/400/8/55%; MINIMAL SECREATIONS. AFEBRILE. HR 90-115. SBP 90-120; MAP >65. PEG TUBE IN PLACE WITH NEPRO BOLUS FEEDS; RECATL TUBE IN PLACE WITH NO OUTPUT AT THIS TIME. NO PLAN FOR DIALYSIS TODAY. PICC TO RUE DRESSING C/D/I. SEE SHIFT ASSESSMENT FOR FULL ASSESSMENT.
--- NOTE | 2025-02-20 14:39 | NUR ---
UPDATE/ISO CALL MADE TO INFECTION CONTROL; THEY STATED THAT THE PATIENT CAN BE REMOVED OUT OF FLU A ISOLATION.
--- NOTE | 2025-02-20 18:16 | NUR ---
END OF SHIFT SUMMARY NO ACUTE EVENTS THIS SHIFT. PT CONT TO INTERACT WITH STAFF, ANSWERING Y/N QUESTIONS AND MOVING EXTREMITIES MILDLY. HAD ABOUT 3HR ON SPONT MODE THIS SHIFT; PLACED BACK ON AC/VC 20/400/8/45%. AFEBRILE. HR 100-110. SBP 100-140'S. BOLUS FEEDS COMPLETED THROUGH PEG TUBE; RECTAL TUBE IN PLACE WITH SMALL AMOUNT OF LIQUID OUTPUT. PERMACATH TO RIGHT SUBCLAVIAN NOTED WITH DRESSING C/D/I. PICC TO RUE PATENT. DRESSINGS ON COCCYX AND BUTTOCKS CHANGED AND NEW PICTURES DONE TODAY. WILL REPORT TO PM RN WHEN AVAILABLE. DISCUSSED WITH DR SANTANA REGARDING DIALYSIS SCHEDULE FOR VIBRA TRANSFER. HE APPROVED PT HAVING DIALYSIS WEDNESDAY/WEDNESDAY/WEDNESDAY.
--- NOTE | 2025-02-20 21:42 | NUR ---
ASSUMPTION OF CARE/ASSESSMENT: ASSUMED CARE OF PT AT 1900; BEDSIDE SHIFT REPORT RECIEVED FROM DESTINY, RN'S. PT ALERT, FOLLOWING DIRECTIONS AND NODDING HEAD YES/NO TO SIMPLE QUESTIONS. PT CURRENTLY VENTILATED VIA TRACH WITH SETTINGS AC/VC 20/400/8/45%; LUNGS CLEAR T/O AND DENIES SOB AT THIS TIME. PT ST ON MONITOR WITH HR 110'S, SBP 150'S AND DENIES CHEST PAIN/PRESIRE. PEG TUBE TO LUQ, CLAMPED, AND FLUSEHS WELL. PT REPORTS SOME TENDERNESS AT SITE; SITE WITHOUT SWELLING, SOME REDNESS NOTED AT INSERTION SITE AND IT IS NOT WARM TO TOUCH. RECTAL TUBE IN PLACE WITH MINIMAL OUTPUT. PICC TO KAE THAT IS PATENT AND SALINE LOCKED. BED LOWERED, CALL LIGHT IN REACH.
[2025-02-21] VITALS (89 sets, daily range): BP systolic 88–166; BP diastolic 47–836
[2025-02-21 03:28] LABS: Hematocrit 25.4 % (33.0-51.0)
[2025-02-21 03:47] LABS: Albumin, Blood 3.2 g/dL (3.4-5.0); Anion Gap 12 mmol/L (3-11); Blood Urea Nitrogen 139 mg/dL (8-24); Bun/Creatinine Ratio 44.4 (12.0-20.0); CO2, Blood 31 mmol/L (21-32); Calcium, Blood 10.9 mg/dL (8.5-10.1); Chloride, Blood 95 mmol/L (98-108); Creatinine, Blood 3.13 mg/dL (0.40-1.00); Glomerular Filtration Rate 17 (60-); Glucose, Blood 246 mg/dL (70-99); Magnesium, Blood 2.9 mg/dL (1.6-2.4); Phosphorus, Blood 5.2 mg/dL (2.5-4.9); Potassium, Blood 4.1 mmol/L (3.5-5.5); Sodium, Blood 134 mmol/L (136-145)
--- NOTE | 2025-02-21 05:59 | NUR ---
SHIFT SUMMARY: NO ACUTE CHANGES OVERNIGHT; VSS THROUGHOUT THE SHIFT. LOW GRADE FEVER WITH TMAX OF 99.5; TYLENOL GIVEN PER EMAR AND FANS IN PLACE. PT SLEPT ON AND OFF THROUGHOUT THE SHIFT. VENT SETTINGS REMAIN UNCHANGED. PICC REMAINS PATENT AND SALINE LOCKED. RECTAL TUBE PATENT AND DRAINING TO GRAVITY. PEG TUBE PATENT AND CLAMPED. DR. SANTANA AT BEDSIDE THIS MORNING TO EVALUATE PT; PT WILL RECIEVE DIALYSIS TODAY PER MAX. WILL REPORT OFF TO ONCOMING RN.
--- NOTE | 2025-02-21 10:39 | NUR ---
START OF SHIFT: ASSUMED CARE AT START OF SHIFT. PT IS AWAKE AND RESTING IN BED ON A VENTILATOR, ACVC: 20 VT: 400 PEEP: 8 FIO2: 45%. PT OPENING EYE SPONTANEOUSLY, WILL NOD HEAD TO YES OR NO QUESTIONS. THEY ARE ABLE FOLLOW COMMANDS, WEAKNESS IN RIGHT ARM, ABLE TO SQUEEZE FINGERS BUT NOT ABLE TO LIFT THEIR ARM AT THIS TIME. HAVE TRACH, SIZE 6.0. LUNG SOUNDS ARE CLEAR AND EQUAL IN THE UPPER AND DIMINISHED IN THE BASES BILATERALLY. SINUS RYTHM WITH HR IN THE 60'S AND SYSTOLIC BP: 110-130'S. THEY HAV A PEG TUBE IN THE LUQ AND RECEIVING BOLOUS FEEDINGS. RECTAL TUBE IN PLACE AND DRAINING TO GRAVITY. SKIN WOUNDS ON COCCYX THAT ARE COVERED WITH MEPILEX. THEY HAVE A PERMA CATHETER IN THE R UPPER CHEST AND RECEIVING DIALYSIS TODAY. WILL CONTINUE TO MONITOR.
--- NOTE | 2025-02-21 18:21 | NUR ---
SHIFT SUMMARY: PT IS DOING WELL, THEY WERE AWAKE, EYE OPENING SPONTANEOUSLY AND ABLE TO NOD HEAD TO YES OR NO QUESTIONS. THEY REMAINED IN BED ALL DAY. THEY ARE STILL ON A VENT WITH SETTINGS, ACVC: 20 VT: 400 PEEP: 8 FIO2: 45%. THEY HAVE A TRACH, INNER CANULA WAS CHANGE AND TRACH AREA WAS CLEANED AND DRESSING CHANGED. SINUS TACH WITH SBP IN THE 130'S ADN HR 90-100'S. SPONTANEOUS BREATHING TRIAL LAST ABOUT 1 HOUR BEFORE THEIR RESP RATE INCREASED TO 50'S SO THEY WERE PLACED BACK ON THE PREVIOUS VENT SETTINGS. THEY RECEIVED DIALYSIS THIS MORNING. THE MEPLIX DRESSINGS WERE REPLACED ON THE WOUNDS. THE RECTAL TUBE WAS REMOVED PER DOCTOR ORDER. PICC LINE DRESSING WAS CHANGED. PT IS RECEIVING BOLUS TUBE FEEDINGS VIA PEG TUBE. THEIR LINES, CORDS, AND TUBES WERE PLACED OUT OF THEIR WAY.
[2025-02-21] MEDS ORDERED: Insulin Glargine-Yfgn 100 Unit/mL 3 ML SYR SC SCH (21:00)
--- NOTE | 2025-02-21 21:24 | NUR ---
ASSUMPTION OF CARE/ASSESSMENT: ASSUMED CARE OF PT AT 1900; BEDSIDE SHIFT REPORT RECIEVED FROM DESTINY, RN'S. PT REMAINS ALERT, NODDING HEAD YES/NO QUESTIONS AND FOLLOWING COMMANDS. PT IS VENTIALTED VIA TRACH WITH SETTINGS AC/VC 20/250/8/45%; LUNGS CLEAR T/O, SPO2 94<. SR ON MONITOR WITH HR 80-90, SBP 100-110 AND DENIES CHEST PAIN/PRESSURE. PT HAD PEG TUBE TO LUQ THAT IS INFUSING LAST NEPRO BLOUS FEEDING FOR THE DAY. ANURIC, ATTEND IN PLACE. MOVING LEFT ARM AND RIGHT LEG SPONTANEOUSLY BUT R. ARM AND L. LEG MINIMAL MOVEMENT OBSERVED. PT COMPLAINING OF SOME PAIN IN HER BACK, PRN FENTANYL GIVEN WITH GOOD EFFECT.
[2025-02-22] VITALS (38 sets, daily range): BP systolic 92–153; BP diastolic 55–88
[2025-02-22 04:10] LABS: Hematocrit 25.2 % (33.0-51.0)
[2025-02-22 04:28] LABS: Albumin, Blood 3.3 g/dL (3.4-5.0); Anion Gap 12 mmol/L (3-11); Blood Urea Nitrogen 124 mg/dL (8-24); Bun/Creatinine Ratio 45.1 (12.0-20.0); CO2, Blood 31 mmol/L (21-32); Calcium, Blood 10.4 mg/dL (8.5-10.1); Chloride, Blood 91 mmol/L (98-108); Creatinine, Blood 2.75 mg/dL (0.40-1.00); Glomerular Filtration Rate 20 (60-); Glucose, Blood 243 mg/dL (70-99); Magnesium, Blood 2.6 mg/dL (1.6-2.4); Phosphorus, Blood 4.8 mg/dL (2.5-4.9); Potassium, Blood 3.7 mmol/L (3.5-5.5); Sodium, Blood 130 mmol/L (136-145)
--- NOTE | 2025-02-22 05:58 | NUR ---
SHIFT SUMMARY: NO ACUTE CHANGES OVERNIGHT; VSS THROUGHOUT THE SHIFT. PT REMAINS VENTILATED VIA TRACH WITH SETTINGS AC/VC 20/400/8/45%. PT REPORTS BACK PAIN, RECIEVED FENTANYL PRN WITH GOOD EFFECT. ATTENDS CHANGED WITH SCANT STOOL, MORE BARRIER CREAM APPLIED. BLADDER SCAN SHOWED 38 MLS URINE. WILL REPORT OFF TO ONCOMING RN.
--- NOTE | 2025-02-22 13:09 | NUR ---
Spiritual Care Visit. Pt. is awake. Attending Nurse is presentinitially, but steps out soon after this microgrinder operator comes to bedside. Pt. seems unsettled by not being able to audibly commmunicate. Listen and understand with empathy and a calming presence. Pt. acknowledged with nods a desire to have this microgrinder operator pray for her and her family. Prayed with Pt. Pt. smiled and mouthed the words "thank you". Will remain available to the pt. and family.
[2025-02-22] MEDS ORDERED: Ondansetron HCl 2 MG / ML 2ML Vial IV PRN (16:20)
--- NOTE | 2025-02-22 17:09 | NUR ---
PT REPORTED NAUSEA, ADMINISTERED ONDANSETRON AND WITHHELD 1600 FEEDING VIA GASTROSTOMY TUBE.
--- NOTE | 2025-02-22 19:03 | NUR ---
PT IS A&OX4, OPENS EYES TO VERBAL AND PAINFUL STIMULI, AND CAN NOD HER HEAD YES OR NO TO QUESTIONS. PT IS EMOTIONAL AND IS EVIDENTLY UPSET ABOUT HER NEW TRACHEOSTOMY. PT IS VENTILATED VIA TRACH AND IS TOLERATING WELL. PT UNDERWENT A SBT FOR APPROX 3HRS AND TOLERATED WELL UNTIL BECAME INCREASINGLY RESTLESS AND RR >40. PT SBP>120, HELD AM AND PM MIDODRINE. PT HAD A LOOSE BM.
[2025-02-22] MEDS ORDERED: Insulin Glargine-Yfgn 100 Unit/mL 3 ML SYR SC SCH (21:00)
[2025-02-23] VITALS (28 sets, daily range): BP systolic 95–162; BP diastolic 60–90
[2025-02-23 04:22] LABS: Hematocrit 26.4 % (33.0-51.0); Hemoglobin 8.5 g/dL (11.5-16.0)
[2025-02-23 04:48] LABS: Magnesium, Blood 2.8 mg/dL (1.6-2.4)
[2025-02-23 05:06] LABS: Albumin, Blood 3.2 g/dL (3.4-5.0); Anion Gap 13 mmol/L (3-11); Blood Urea Nitrogen 167 mg/dL (8-24); Bun/Creatinine Ratio 49.1 (12.0-20.0); CO2, Blood 29 mmol/L (21-32); Calcium, Blood 11.3 mg/dL (8.5-10.1); Chloride, Blood 89 mmol/L (98-108); Glomerular Filtration Rate 16 (60-); Glucose, Blood 187 mg/dL (70-99); Phosphorus, Blood 6.1 mg/dL (2.5-4.9); Sodium, Blood 127 mmol/L (136-145)
--- NOTE | 2025-02-23 06:22 | NUR ---
SHIFT SUMMARY: NO ACUTE CHANGES OVERNIGHT; VSS THROUGHOUT THE SHIFT. PT REMAINS ALERT, FOLLOWING DIRECTIONS AND NODDING HEAD YES/NO TO QUESTIONS. AT TIMES, PT SEEMS MORE WITHDRAWL, OFTEN VERY EMOTIONAL AND CRYING WHEN STAFF ARE IN THE ROOM. PT EXPRESSES FRUSTRATION WITH TRACH AND PT CARE. CONCERNS FOR DEPRESSION. WHEN ASKED REGARDING FEELINGS OF DEPRESSION/HOPELESSNESS/LONELINESS, PT IS SHAKING HEAD NO. PT CONTINUES VENTILATED VIA TRACH WITH SETTINGS AC/VC 20/400/10/50%; LUNGS ARE CLEAR, OCCASIONALLY COARSE BUT ONCE PT IS COACHED TO COUGH LUNGS ARE CLEAR AGAIN. SR-ST ON MONITOR WITH HR 90-110'S, SBP 120'S, AND DENIES SOB/CHEST PAIN AT THIS TIME. PEG TUBE PATENT AND CLAMPED AT THIS TIME. DR. SANTANA BY THIS MORNING TO ASSESS PT; PT WILL RECIEVE DIALYSIS TODAY AND DR. SANTANA REQUESTS THAT THE [employer] MELTER HELPER CHANGES TUBE FEEDS TO A FORMULA WITH THE LEAST AMOUNT OF CALCIUM. PT HAD TWO LARGE, LOOSE BM'S; ALL OF PERINEAL BANDAGES CHANGED THIS MORNING. WILL REPORT OFF TO ONCOMING RN.
[2025-02-23] MEDS ORDERED: Calcitonin Salmon 200 IU/ML 2ML Vial SC ONE (07:55)
[2025-02-23] MEDS ORDERED: DULoxetine HCL 30 MG Cap DR XX SCH (09:00)
[2025-02-23] MEDS ORDERED: Banana Flakes/Tos 1 EA Powder Pack PT SCH (14:00)
--- NOTE | 2025-02-23 15:54 | NUR ---
ISSAC BACK TO BED FROM RECLINER, CLEANED AND CHANGED FROM INCONT. OF BOWEL. PT THEN VOMITED ABOUT 200ML OF TUBE FEEDING COLORED RETURN. PT STATED SHE WAS UNCOMFORTABLE, MEDICATED FOR NAUSEA AND FOR PAIN. REPOSITIONED, AND SON IN BRIEFLY, PT HAS FALLEN ASLEEP. RETURN TO PREVIOUS VENTILATOR SETTINGS AFTER BEING ON SPONTANEOUS 15/5/ 50% DURING HER TIME IN RECLINER.
[2025-02-23] MEDS ORDERED: Metoclopramide HCl 5MG / ML 2ML Vial IV PRN (16:40)
--- NOTE | 2025-02-23 17:00 | NUR ---
ISSAC CONTINUES TO VOMIT, CALL TO JASE SOLORZANO ORDERED, GIVEN. SUCTION TO PEG TUBE TO CLEAR ANY REMAINING CONTENTS, THEN PRN. PT TRYING TO REST. STATES STILL DOESNT FEEL WELL.
--- NOTE | 2025-02-23 17:50 | NUR ---
DESPITE THE EMESIS THE BLOOD SUGAR HAS CONTINUED TO CLIMB THIS SHIFT. IT IS NOW 380 AND COVERED WITH 5U REGULAR INSULIN. THE INCREASE IN LONG ACTING LAST NIGHT DID NOT DETER THE N/V AND INCREASE THIS SHIFT. SHE HAS NOT FELT WELL FOR THE MAJORITY OF THE DAY. DESPITE THIS SHE TOLERATED DIALYSIS WELL, WAS UP IN THE RECLINER FOR SEVERAL HOURS AND ON SPONTANEOUS FOR AROUND 3 HOURS. SHE HAS BEEN INCONT OF STOOL X 2, BANANA FLAKES WERE ADDED PER BETTING CLERK, THOSE WERE PART OF THE EMESIS. DID SUGGEST PSYLLIUM FIBER FROM FIBER CON. WILL CONTINUE PLAN OF CARE AT THIS TIME.
--- NOTE | 2025-02-23 22:10 | NUR ---
ASSUMPTION OF CARE ASSUEMD CARE OF PATIENT AT APPROXIMATELY 1900, BEDSIDE SHIFT REPORT RECEIVED FROM LOLA RN. PT RESTING IN BED, ALERT AND ORIENTED. PT ANSWERS QUESTIONS BY SHAKING/NODDING HEAD AND MOUTHING WORDS. PT CONTINUOUSLY MOVES LEFT ARM, MOVES RIGHT LEG AND RIGHT ARM SPONTANEOUSLY, DOES NOT MOVE LEFT LEG WHICH IS BASELINE FOR HER. HR 100-105 SINUS, MAP >65. PT HAS TRACH IN PLACE CONNECTED TO VENT, VENT SETTINGS AC/VC 20/400/10/50%, OXYGEN SATURATION >95%. ABDOMEN SOFT, BOWEL TONES HPOACTIVE. PT DENIES N/V ON ASSESSMENT. PEG TUBE IN PLACE. DIALYSIS PATIENT, NO URINE. PICC LINE IN PLACE TO KAE SL. DIALYSIS CATH IN PLACE TO RIGHT CHEST. BED IN LOWEST POSITON, CALL LIGHT WITHIN REACH, CARE CONTINUES.
--- NOTE | 2025-02-23 23:59 | NUR ---
PATIENT UPDATE/TRACH DISLODGEMENT VENT ALARMING. PRECEPTING RN TO ROOM. TRACH COMPLETELY DISLODGED. RT TO BEDSIDE. DESATTED TO 79%, NASAL CANNULA PLACED AT 6LPM. 6.0 XLT SHILEY TRACH REPLACED BY RT. RECONNECTED TO VENT. O2 SAT INCREASED TO 98%. CHEST XRAY OBTAINED. DR. QUARLES TO BEDSIDE TO ASSES. NO NEW ORDERS AT THIS TIME. LEFT WRIST RESTRAINED. DR. QUARLES AWARE. DR. HERNANDEZ CALLED AND INFORMED. NO NEW ORDERS AT THIS TIME. CARE CONTINUES.
[2025-02-24] VITALS (12 sets, daily range): BP systolic 101–153; BP diastolic 61–84
[2025-02-24 04:21] LABS: Hematocrit 26.6 % (33.0-51.0); Hemoglobin 8.6 g/dL (11.5-16.0)
[2025-02-24 04:47] LABS: Albumin, Blood 3.2 g/dL (3.4-5.0); Anion Gap 12 mmol/L (3-11); Blood Urea Nitrogen 115 mg/dL (8-24); Bun/Creatinine Ratio 46.4 (12.0-20.0); CO2, Blood 32 mmol/L (21-32); Calcium, Blood 9.9 mg/dL (8.5-10.1); Chloride, Blood 90 mmol/L (98-108); Creatinine, Blood 2.48 mg/dL (0.40-1.00); Glomerular Filtration Rate 23 (60-); Glucose, Blood 275 mg/dL (70-99); Magnesium, Blood 2.6 mg/dL (1.6-2.4); Phosphorus, Blood 4.8 mg/dL (2.5-4.9); Potassium, Blood 3.6 mmol/L (3.5-5.5); Sodium, Blood 130 mmol/L (136-145)
--- NOTE | 2025-02-24 06:15 | NUR ---
SHIFT SUMMARY PATIENT IS A&O X4. PATIENT SLEPT ON AND OFF THROUGH THE NIGHT. VENT SETTINGS REMAIN UNCHANGED. PICC LINE IS SALINE LOCKED. PEG TUBE IS CLAMPED. HR 100-115 SINUS TACHY. BED IN LOWEST POSTITION, CARE CONTINUES.
--- NOTE | 2025-02-24 09:35 | NUR ---
ISSAC IS INTERACTING THIS AM, SHE IS ANSWERING QUESTIONS AND TRYING TO MOUTH WORDS. SHE DENIES INTENTIONAL HARM TO HERSELF BY REMOVAL OF THE TRACH OVER NIGHT. SHE STATES SHE DOESN'T FEEL GOOD THIS AM CANNOT SAY WHAT EXACTLY. FEEDING DONE. MEDICATIONS PASSED.
--- NOTE | 2025-02-24 11:44 | NUR ---
ISSAC IS CURRENTLY IN THE RECLINER, VARIOUS CHANGES T/O THE MORNING WITH THE VENTILATOR. HAD HER ABLE TO SPEAK SOME WORDS TO HER . SHE WAS TRIED ON THE AIRVO/TRACH COLLAR AND PASSEY-SHONNA VALVE, SHE SAID SOME WORDS. SHE BECAME DIAPHORETIC AND TACHYPNEIC. SHE THEN WAS RETURNED TO THE VENTILATOR. SHE COMPLAINED OF FEELING NAUSEATED AND ANXIOUS, 2MG ATIVAN GIVEN.PT IS NOW RESTING QUIETLY IN THE RECLINER.
[2025-02-24 12:46] LABS: GBM, IGG MULTIPLEX BEAD ASSAY 1 AU/mL (0-19); MYELOPEROXIDASE (MPO) AB,IGG 1 AU/mL (0-19); SERINE PROTEINASE 3 PR3 AB,IGG 4 AU/mL (0-19)
--- NOTE | 2025-02-24 18:52 | NUR ---
ISSAC WENT THROUGH VARIOUS TRIALS OF VENT SETTINGS TODAY WITH AND RT. SHE WAS ABLE TO SPEAK BRIEFLY TO HER WITH AT THE VENTILATOR. WHEN IN THE RECLINER, SHE WAS TRANSITIONED TO TRACH COLLAR AND PASSEY-SHONNA VALVE, DID NOT TOLERATE WELL. CONTINUES TO BE AWAKE AND ALERT T/O THE MAJORITY OF THE SHIFT. SHE CONTINUES TO SHAKE HER HEAD, BAT WITH HER LEFT ARM AND SHAKE HER RIGHT LEG. SHE HAD NO BM TODAY, WAS ABLE TO TOLERATE HER FEEDINGS X 3 TODAY WITH NO S/SX OF N/V. HER MEDICATIONS WERE SPREAD OUT ACROSS THE MORNING WITH THE MANY MIXED MEDS, INCLUDING KAYE, PHOS, BANANA FLAKES, LIQUACEL. ALL REQUIRE ADDITIONAL WATER WITH TUBE, SEEMED TO DECREASE HER AMOUNT OF INTOLERANCE TO FEEDINGS. SHE DID NAP FOR A COUPLE OF HOURS AFTER A DOSE OF ATIVAN. AND SON VISITED TODAY, UPDATE GIVEN. PICC IN RIGHT UPPER ARM. NO URINE OUTPUT, SCD'S IN USE. REMAINS WITH FLAT AFFECT.
[2025-02-24 22:29] LABS: ANTINUCLEAR AB (ANA),HEP-2,IGG <1:80 (<1:80)
--- NOTE | 2025-02-24 22:31 | NUR ---
ASSUMPTION OF CARE ASSUMED CARE OF PATIENT AT APPROXIMATELY 1900. BEDSIDE SHIFT REPORT RECIEVED FROM DAYSHIFT RN. PATIENT AWAKE, ALERT AND ORIENTED RESTING IN BED. PT ABLE TO ANSWER QUESTIONS WITH EYEROLLS, SHAKING/NODDING HEAD AND MOUTHING ANSWERS. PATIENT CONTINUOUSLY MOVES LEFT ARM AND RIGHT LEG WHICH IS BASELINE FOR THE THE PATIENT. MOVEMENT OF RIGHT ARM IS WEAK BUT APPEARS TO BE IMPROVING. PATIENT DOES NOT SPONTANEOUSLY MOVE LEFT LEG AND APEARS TO HAVE DIMINISHED SENSATION IN LEFT LEG. HR IS 101-110 SINUS TACHYCARDIA, MAP >65. PT HAS TRACH IN PLACE CONNECTED TO VENT. VENT SETTINGS, AC/VC 20/400/10/50%, OXYGEN SATURATION IS >97%. UPON PALPATATION, ABDOMEN SOFT, BOWEL SOUNDS PRESENT, NO URINE, PICC LINE IN PLACE TO KAE SALINE LOCKED. DIALYSIS CATHETER IN PLACE TO RIGHT CHEST, BED IN LOWEST POSITION, CALL LIGHT IN PLACE, CARE CONTINUES.
[2025-02-25] VITALS (13 sets, daily range): BP systolic 119–155; BP diastolic 58–85
[2025-02-25] MEDS ORDERED: Insulin Regular 100 UNIT/ML 10ML Vial SC SCH (00:16)
--- NOTE | 2025-02-25 00:30 | NUR ---
PT UPDATE CALLED AND SPOKE WITH DR. QUARLES REGARDING PT BLOOD SUGAR. ORDERS RECEIVED FOR ADDITIONAL DOSE OF INSULIN WITH MEDIUM SLIDING SCALE, SEE EMAR. CARE CONTINUES.
[2025-02-25 03:53] LABS: Hematocrit 24.9 % (33.0-51.0)
[2025-02-25 04:10] LABS: Magnesium, Blood 2.9 mg/dL (1.6-2.4)
[2025-02-25 04:32] LABS: Anion Gap 12 mmol/L (3-11); Blood Urea Nitrogen 153 mg/dL (8-24); Bun/Creatinine Ratio 49.5 (12.0-20.0); CO2, Blood 32 mmol/L (21-32); Calcium, Blood 10.3 mg/dL (8.5-10.1); Chloride, Blood 88 mmol/L (98-108); Creatinine, Blood 3.09 mg/dL (0.40-1.00); Glomerular Filtration Rate 18 (60-); Glucose, Blood 245 mg/dL (70-99); Phosphorus, Blood 5.5 mg/dL (2.5-4.9); Potassium, Blood 3.8 mmol/L (3.5-5.5); Sodium, Blood 128 mmol/L (136-145)
--- NOTE | 2025-02-25 05:25 | NUR ---
PT UPDATE CALLED AND INFORMED DR. SANTANA OF MORNING LABS, NO NEW ORDERS AT THIS TIME. CARE CONTINUES.
--- NOTE | 2025-02-25 05:45 | NUR ---
SHIFT SUMMARY NO ACUTE CHANGES THIS SHIFT. PATIENT IS A&O X4. PT HAS BEEN CALM AND COOPERATIVE DURING SHIFT. PT IS ABLE TO ANSWER QUESTIONS WITH EYE ROLL, HEAD NODDING, AND MOUTHING WORDS. PATIENT'S LEFT ARM AND RIGHT LEG REMAIN ACTIVE WITH SOME SPASTIC MOVEMENTS THROUGH OUR SHIFT. PATIENT HAS A TENDENCY FOR LEFT ARM TO GET TANGLED IN VENT TUBES. VENT TUBES WERE MOVED TO PATIENTS RIGHT SIDE TO AVOID BEING PULLED OUT. PATIENT HAS SLEPT FOR SHORT PERIODS OF TIME. PATIENT'S VENT SETTINGS HAVE REMAINED UNCHANGED AT 20/400/10/50%. HR IS BETWEEN 100-110 SINUS TACH. HER PICC LINE IS PATENT, DRAWS BLOOD AND IS SALINE LOCKED. BLOOD SUGAR WAS ELEVATED AT 353, DR QUARLES WAS NOTIFIED AND SLIDING SCALE WAS ADJUSTED. LAST BLOOD SUGAR WAS 191. BED IS IN LOWEST POSTITION, CARE CONTINUES.
[2025-02-25] MEDS ORDERED: Protein Supplement 30 ML UD PT SCH (14:00)
--- NOTE | 2025-02-25 18:25 | NUR ---
PT HAD BEEN DEPRESSED TODAY. I HAVE LET HER DICTATE HER CARE TODAY EXCEPT FOR NECESSITY AND REQUIRED MEDS, GIVING CHOICES AND CONTROL. SHE HAS COMPLAINED OF BACK PAIN TODAY AND GIVEN PAIN MEDICATIONS THREE TIMES. [facility]\TID [phone]. BATHED AND TURNED ACCORDINGLY. BLADDER SCANNED TWICE NO IN\OUT CATH NEEDED AT THIS MOMENT.
--- NOTE | 2025-02-25 20:45 | NUR ---
ASSUMPTION OF CARE ASSUMED CARE OF PATIENT AT APPROXIMATELY 1900. PATIENT RESTING COMFORTABLLY IN BED. BEDSIDE REPORT GIVEN BY LOLA RN AND RECIEVED BY THIS RN. PATIENT REPORTS FEELING PAIN AND DISCOMFORT, MEDICATED PER EMAR WITH GOOD EFFECT. PT VENTILATOR SETTINGS REMAIN UNCHANGED AT 20/400/10/50%. ON ASCULTATION RIGHT LUNG SOUNDS COARSE AND LEFT LUNG SOUNDS WHEEZY. PATIENT ALERT AND ORIENTED. SHE CONTINUES TO ANSWER QUESTINOS WITH EYE ROLLS, FACIAL EXPRESSIONS, AND MOUTHING WORDS. PATIENT'S PEG TUBE IN PLACE, RECIEVING BOLUS TUBE FEEDS. PICC LINE STILL IN PLACE, PATENT, FLUSHES AND DRAWS BLOOD. HR 86-101 SINUS. MAP >65 02 SAT > 95%. BED IN LOWEST POSTION, CALL LIGHT WITH IN REACH. CARE CONTINUES.
[2025-02-25] MEDS ORDERED: HYDROcodone 7.5-APAP 325 TAB PT PRN (22:35)
[2025-02-26] VITALS (51 sets, daily range): BP systolic 91–157; BP diastolic 47–107
--- NOTE | 2025-02-26 01:05 | NUR ---
PT UPDATE PT STRAIGHT CATH'D ON PREVIOUS SHIFT. BLADDER SCAN THIS EVENING SHOWS 311MLS. CALL PLACED TO DR. WOODS TO SEE ABOUT STRAIGHT CATH VS. INDWELLING SHIN PLACEMENT. ORDERS RECEIVED FOR SHIN PLACEMENT AT THIS TIME. CARE CONTINUES.
[2025-02-26 04:20] LABS: Hematocrit 23.8 % (33.0-51.0); Hemoglobin 7.8 g/dL (11.5-16.0)
[2025-02-26 04:59] LABS: Anion Gap 16 mmol/L (3-11); Blood Urea Nitrogen 186 mg/dL (8-24); Bun/Creatinine Ratio 51.5 (12.0-20.0); CO2, Blood 30 mmol/L (21-32); Calcium, Blood 10.4 mg/dL (8.5-10.1); Chloride, Blood 86 mmol/L (98-108); Creatinine, Blood 3.61 mg/dL (0.40-1.00); Glomerular Filtration Rate 15 (60-); Glucose, Blood 240 mg/dL (70-99); Potassium, Blood 3.7 mmol/L (3.5-5.5); Sodium, Blood 128 mmol/L (136-145)
--- NOTE | 2025-02-26 06:16 | NUR ---
SHIFT SUMMARY PATIENT IS A&O X 4. PATIENT HAS BEEN CALM AND COOPERATIVE DURING SHIFT AND HAS BEEN ABLE TO ANSWER QUESTIONS WITH EYE ROLLS, HEAD NODDING, AND MOUTHING WORDS. PATIENT REPORTED FEELING PAIN, DR. VERDIN WAS NOTIFIED AND PATIENT WAS MEDICATED PER EMAR, PATIENT USED HEAD NODDS AND MOUTHING WORDS TO INDICATE RELIEF AND HAS SLEPT ON AND OFF DURING THE NIGHT. PATIENT REPORTED FEELING URGENCY TO URINATE, AND NOW HAS A FOLLEY CATHETER. PATIENT'S VENTILATOR SETTINGS WERE CHANGED BY RT TO 20/400/8/40% WITH GOOD EFFECT. HR 72-80 SINUS. HER PICC LINE IS PATENT, FLUSHES, DRAWS BLOOD AND IS SALINE LOCKED. BED IS IN LOWEST POSITION, CARE CONTINUES.
[2025-02-26 09:11] LABS: Protein, Urine Quantitative 140.8 mg/dL (0.0-11.9)
[2025-02-26] MEDS ORDERED: Insulin Regular 100 UNIT/ML 10ML Vial SC SCH (12:00)
--- NOTE | 2025-02-26 12:10 | NUR ---
SPONTANEOUS BREATHING TRIAL: SBT STARTED AROUND 6410-5022 WITH RT. PATIENT TOLERATING WELL. UP TO CHAIR WITH RT AT THIS TIME. RR IN THE HIGH 20S AND LOW 30S. VOLUMES 250 - LOW 300'S. BREATHING IS EVEN AND CALM AT THIS TIME. OCCASIONAL SUCTIONING REQUIRED FOR WHITE THIN SPUTUM.
--- NOTE | 2025-02-26 15:05 | NUR ---
END OF SBT: PATIENT REPORTED FEELING FATIGUED. SOME DESATURATION NOTED INTO THE MID 80S. NOTIFIED RT. SBT ENDED AT 1505.
--- NOTE | 2025-02-26 18:30 | NUR ---
SHIFT SUMMARY: NEURO: PATIENT ALERT AND FOLLOWING DIRECTIONS DURING THE SHIFT. PATIENT ABLE TO SQUEEZE BOTH UPPER HANDS. SPASTIC MOVEMENT IN LEFT ARM. WEAK MOVEMENT IN RIGHT ARM. ABLE TO MOVE RIGHT FOOT AND TOES. NO MOVEMENT IN LEFT LEG NOTED. NO RESPONSE TO STIMULIS OF LEFT FOOT OR TOES NOTED. PATIENT REPORTED BACK PAIN AT TIMES DURING THE SHIFT. MEDICATED PER PRNS. RESPIRATORY: PATIENT TOLERATED A SPONTANEOUS BREATHING TRIAL FROM ABOUT 6632-5484. SETTINGS WITH AC/VC WERE 20/400/8/40%. AFTER SPONTANEOUS BREATHING TRIAL, PATIENT SPO2 WAS 89-92%. ONCE PATIENT WAS FULLY RECOVERED AND THROUGHOUT THE MORNING, SPO2 >92%. COARSE LUNG SOUNDS AT TIMES. MOD-LARGE AMOUNTS OF THIN, WHITE, JORGE SECRETIONS. CARDIAC: HR IN THE 80S-90S THROUGHOUT THE SHIFT. VITALS STABLE WITH MAPS >65 OTHER THAN ABOUT AN HOUR THIS AFTERNOON - A COMBINATION OF SOUND REST AND PRN FENTANYL PRODUCED MAPS OF 61-64. PATIENT RECEIVED 2 DOSES OF MIDODRINE TODAY BASED ON BLOOD PRESSURE. GI/: PATIENT TOLERATED TUBE FEEDING AND MEDICATIONS FAIRLY WELL. DID REQUIRE PRN MEDICATION FOR NAUSEA ONE TIME. PATIENT DID REQUEST THAT MEDICATION ADMINISTRATION BE DELAYED UNTIL RESOLVED. PATIENT HAD MULTIPLE LIQUID BROWN BOWEL MOVEMENTS. PATIENT PRODUCING URINE IN SHIN THAT RANGES FROM TEA TO YELLOW IN COLOR. HEMODIALYSIS PERFORMED THIS AM. INTEGUMENTARY: WOUND CARE TO [place] REGION PERFORMED MULTIPLE TIMES. GENTLY CLEANSED AND APPLIED ZINC BARRIER CREAM WELL HONEY SALVE. PSYCHSOCIAL: PATIENT ANXIOUS AND DEPRESSED AT TIMES. PATIENT TEARFUL WITH FAMILY DURING DISCUSSION OF TRANSITION TO [facility]. PATIENT RESPONDS WELL TO EXPLANATIONS AND PRESENCE.
--- NOTE | 2025-02-26 21:47 | NUR ---
ASSUMPTION OF CARE ASSUMED CARE OF PATIENT AT APPROXIMATELY 1900. PATIENT RESTING COMFORTABLY IN BED. BEDSIDE REPORT GIVEN BY LOLA RN AND RECIEVED BY THIS RN. PATIENT REPORTS SOME PAIN AND WAS MEDICATED PER EMAR WITH GOOD EFFECT. PT HAD DIALYSIS EARLIER IN THE DAY WITH A REPORTED 2.4 L TAKEN OFF. PT SEEMED IN GOOD SPIRIRTS AFTER VISIT WITH AND SON. PT'S VENTILATOR SETTINGS ARE CURRENTLY AT 20/400/8/40%. UPON ASCULTATION, PATIENT'S LUNGS SOUND COARSE WITH SUCTION PICKING UP A THICK WHITE/YELLOW SECRETION. PATIENT ALERT AND ORIENTED, SHE CAN ANSWER QUESTIONS WITH EYE ROLLS, FACIAL EXPRESSIONS, AND MOUTHING WORDS. PT HAS SHIN CATHETER IN PLACE, DRAINS TO GRAVITY. PATIENT'S PEG TUBE IS IN PLACE, RECIEVING BOLUS TUBE FEEDS AND MEDICATIONS. PICC LINE IN PLACE. LINE IS PATENT, FLUSHES AND DRAWS BLOOD. HR - 80-90 SINUS. MAP> 65. O2 SAT >90%. BED IN LOWEST POSITION, CALL LIGHT IN REACH, CARE CONTINUES.
[2025-02-27] VITALS (22 sets, daily range): BP systolic 93–138; BP diastolic 50–114
--- NOTE | 2025-02-27 00:05 | NUR ---
INFORMED DR. QUARLES BLOOD SUGAR OF 424. PT IS ALREADY ON HIGH CORRECTION SCALE INSULIN. DOSE GIVEN. NO NEW ORDERS PER DR. QUARLES.
[2025-02-27 04:08] LABS: Hematocrit 25.2 % (33.0-51.0)
[2025-02-27 04:31] LABS: Albumin, Blood 3.2 g/dL (3.4-5.0); Anion Gap 10 mmol/L (3-11); Blood Urea Nitrogen 136 mg/dL (8-24); Bun/Creatinine Ratio 55.1 (12.0-20.0); CO2, Blood 33 mmol/L (21-32); Calcium, Blood 9.8 mg/dL (8.5-10.1); Chloride, Blood 91 mmol/L (98-108); Creatinine, Blood 2.47 mg/dL (0.40-1.00); Glomerular Filtration Rate 23 (60-); Glucose, Blood 296 mg/dL (70-99); Magnesium, Blood 2.7 mg/dL (1.6-2.4); Phosphorus, Blood 3.8 mg/dL (2.5-4.9); Potassium, Blood 3.6 mmol/L (3.5-5.5); Sodium, Blood 130 mmol/L (136-145)
--- NOTE | 2025-02-27 04:44 | NUR ---
SHIFT SUMMARY PATIENT IS A&O X 4. PATIENT HAS BEEN CALM AND COOPERATIVE DURING SHIFT AND HAS BEEN ABLE TO ANSWER QUESTIONS WITH EYE ROLLS, HEAD NODDS, AND MOUTHING WORDS. PATIENT HAS BEEN REPORTING DISCOMFORT AND PAIN. PATIENT WAS MEDICATED PER EMAR. PATIENT INDICATED RELIEF FROM PAIN USING HEAD NODDING AND MOUTHING WORDS. PATIENT HAS SLEPT WELL THIS SHIFT. PATIENT HAS GAINED SOME CONTROL OVER MOVEMENTS OF LEFT ARM. PATIENTS VENTILATOR SETTINGS REMAIN UNCHANGED FROM AM AT 20/400/8/40% WITH GOOD EFFECT. HR 70-90 AND SINUS. PATIENT'S SHIN CATHETER DRAINS TO GRAVITY. HER PICC LINE IS PATENT, FLUSHES, DRAWS BLOOD AND SALINE LOCKED. BED IS IN LOWEST POSITION, CARE CONTINUES.
--- NOTE | 2025-02-27 10:50 | NUR ---
ISSAC HAS BEEN UNABLE TO GET COMFORTABLE THIS MORNING. SHE WAS TRANSFERRED TO THE RECLINER BY LIFT, TOLERATED FOR A BRIEF TIME. CONTINUES TO COMPLAIN OF BUTTOCKS PAIN, AREA IS CLEAN, CREAM BARRIER APPLIED AND BRIEF. SHE IS PUT IN RIGHT LATERAL DECUBITUS POSITION, SHE IS RESTING NOW. FIO2 INCREASED TO 50% WHILE ON THE RIGHT SIDE, SATS 88-89%. SHE IS CURRENTLY ON SPONTANEOUS AND TOLERATING WELL. COUGHING, ETT SUCTION RETURNS WHITE THICK.
--- NOTE | 2025-02-27 14:57 | NUR ---
ISSAC HAS HAD A BUNCH OF COMPANY TODAY, THEY HAVE ASKED FOR HER TO BE MOVED OR REPOSITIONED FREQUENTLY. SHE HAS BEEN MEDICATED OFTEN POSSIBLE PER MAR AND CONTINUES TO HAVE FAMILY ASK FOR MORE MEDICATION. STILL AWAITING ANSWERS TO TRANSFER.
--- NOTE | 2025-02-27 17:32 | NUR ---
THE FAMILY HAS LEFT HER ALONE FOR A WHILE, SHE HAS BEEN TURNED TO FACE THE WINDOW AND HAS FALLEN ASLEEP. SHE HAS REMAINED ON SPONTANEOUS AND DOING WELL WITH RESPIRATIONS REMAINING IN THE 20'S. HER SATS HAVE BEEN >95%. SHE HAS BEEN HARD TURNED LEFT AND RIGHT FOR SACRUM PRESERVATION. A LOT OF FIBROMYALGIA PAIN TODAY. MEDS PER DEC.
--- NOTE | 2025-02-27 18:48 | NUR ---
ISSAC HAD A GOOD NAP THIS AFTERNOON. SHE IS STILL LOOKING OUT THE WINDOW, AND IS ON SPONTANEOUS. SHE HAD HER FINAL MEAL CARTON AND WHILE COMMUNICATING WITH THIS RN SHE BEGAN THROWING UP. SHE SAID IT WAS WEIRD, SHE WASN'T FEELING ILL WHEN IT HAPPENED. SHE REMAINS ON SPONTANEOUS, EDUCATION ABOUT PROCESS AND VENTILATOR, STRENGTH TRAINING, ETC.
[2025-02-28] VITALS (41 sets, daily range): BP systolic 91–1119; BP diastolic 53–86
[2025-02-28 03:48] LABS: BASOPHILS ABSOLUTE AUTO 0.06 K/mm3 (0.00-0.23); BASOPHILS PERCENT AUTO 1 % (0-2); EOSINOPHILS ABSOLUTE AUTO 0.28 K/mm3 (0.00-0.68); EOSINOPHILS PERCENT AUTO 4 % (0-6); Hematocrit 24.3 % (33.0-51.0); IMMATURE GRAN ABSOLUTE AUTO 0.04 K/mm3 (0.00-0.10); IMMATURE GRAN PERCENT AUTO 1 % (0-1); LYMPHOCYTES ABSOLUTE AUTO 1.27 K/mm3 (0.84-5.20); LYMPHOCYTES PERCENT AUTO 16 % (21-46); MONOCYTES ABSOLUTE AUTO 0.61 K/mm3 (0.16-1.47); MONOCYTES PERCENT AUTO 8 % (4-13); Mean Corpuscular HGB 31.7 pg (26.0-34.0); Mean Corpuscular HGB Conc 32.9 g/dL (31.5-36.5); Mean Corpuscular Volume 96 fL (80-100); Mean Platelet Volume 9.7 fL (9.1-12.4); NEUTROPHILS ABSOLUTE AUTO 5.54 K/mm3 (1.96-9.15); NEUTROPHILS PERCENT AUTO 71 % (41-73); Platelet Count 440 K/mm3 (150-400); RDW Coefficient Variation 17.1 % (11.7-14.2); RDW Standard Deviation 60.6 fL (35.1-46.3); Red Blood Cell Count 2.52 M/mm3 (3.80-5.20)
[2025-02-28 04:21] LABS: Albumin, Blood 3.1 g/dL (3.4-5.0); Albumin/Globulin Ratio 0.8 (0.8-1.8); Bilirubin, Total 0.5 mg/dL (0.1-1.0); Bun/Creatinine Ratio 61.7 (12.0-20.0); Calcium, Blood 10.2 mg/dL (8.5-10.1); Creatinine, Blood 2.69 mg/dL (0.40-1.00); Globulin, Blood 4.1 g/dL (2.2-4.0); Potassium, Blood 3.9 mmol/L (3.5-5.5); Total Protein, Blood 7.2 g/dL (6.4-8.2)
[2025-02-28] MEDS ORDERED: Insulin Glargine-Yfgn 100 Unit/mL 3 ML SYR SC SCH (09:11)
--- NOTE | 2025-02-28 13:01 | NUR ---
ISSAC FINISHED DIALYSIS AND WANTED TO TRY TO SIT ON THE EDGE OF THE BED. SHE WAS READY MENTALLY BUT UNABLE TO FORM ENOUGH STRENGTH TO SIT UP. SHE THEN FELT DISCOURAGED AND GIVEN A BREAK. SHE THEN RECEIVED A VISIT FROM HER AND SON AND DID NOT WANT TO TRY AGAIN. AWAIT TRANSFER INFORMATION TO [facility]. STILL UNSURE OF WHEN THAT WILL HAPPEN. PT HAS BEEN DISCOURAGED.
[2025-02-28] MEDS ORDERED: DiphenhydrAMINE HCL 25 MG Cap PO ONE (21:05)
--- NOTE | 2025-02-28 21:30 | NUR ---
UPDATE ASSUMED CARE OF PT AT 1900, PT AWAKE AND ALERT LYING IN BED, MOUTHS WORDS FOR COMMUNICATION, ORIENTED X4, FOLLOWS COMMANDS, TRACH PATENT ON VENT SPONT MODE FIO2 40% TOLERATING WELL, SR-ST 90-110S, BP STABLE, MAP>65, LOW GRADE TEMP NOTED, PEG PATENT AND CLAMPED, SHIN PATENT AND DRAINING TO GRAVITY, FAMILY AT BEDSIDE AT 1999, SCHEDULED MEDS GIVEN VIA PEG AND FLUSHED WITH 30 ML H20 WITH 1 NORCO PER EMAR FOR PT C/O PAIN "ALL OVER", PT TURNED AND REPOSITIONED FOR COMFORT, PT ANXIOUS AND RESTLESS , WORRIED ABOUT WHEN SHE WILL ACTUALLY LEAVE FOR [facility], AND C/O ITCHING, NEW ORDER RECEIVED FOR BENEDRYL X1, PT MEDICATED WITH BENEDRYL VIA PEG. PT REMAINS ANXIOUS AND RESTLESS WITH MULTIPLE REPOSITIONING AND SUCTIONING DONE, MEDICATED WITH ATIVAN IVP PER EMAR AND P CHANGED TO VENT SETTINGS AC/PC, TOLERATING WELL HOB UP 45 DEGREES SIDE RAILS UP X3 CALL LIGHT IN REACH, RIGHT PICC PATENT AND CLAMPED
[2025-03-01] VITALS (17 sets, daily range): BP systolic 96–133; BP diastolic 53–85
[2025-03-01 04:42] LABS: BASOPHILS ABSOLUTE AUTO 0.06 K/mm3 (0.00-0.23); BASOPHILS PERCENT AUTO 1 % (0-2); EOSINOPHILS PERCENT AUTO 3 % (0-6); Hematocrit 25.7 % (33.0-51.0); Hemoglobin 8.2 g/dL (11.5-16.0); IMMATURE GRAN ABSOLUTE AUTO 0.06 K/mm3 (0.00-0.10); IMMATURE GRAN PERCENT AUTO 1 % (0-1); LYMPHOCYTES ABSOLUTE AUTO 1.41 K/mm3 (0.84-5.20); LYMPHOCYTES PERCENT AUTO 15 % (21-46); MONOCYTES ABSOLUTE AUTO 0.73 K/mm3 (0.16-1.47); MONOCYTES PERCENT AUTO 8 % (4-13); Mean Corpuscular HGB 31.2 pg (26.0-34.0); Mean Corpuscular HGB Conc 31.9 g/dL (31.5-36.5); Mean Corpuscular Volume 98 fL (80-100); Mean Platelet Volume 9.5 fL (9.1-12.4); NEUTROPHILS ABSOLUTE AUTO 6.62 K/mm3 (1.96-9.15); NEUTROPHILS PERCENT AUTO 72 % (41-73); Platelet Count 428 K/mm3 (150-400); RDW Coefficient Variation 17.2 % (11.7-14.2); RDW Standard Deviation 60.9 fL (35.1-46.3); Red Blood Cell Count 2.63 M/mm3 (3.80-5.20); White Blood Cell Count 9.18 K/mm3 (4.00-11.30)
[2025-03-01 05:07] LABS: Albumin, Blood 2.9 g/dL (3.4-5.0); Albumin/Globulin Ratio 0.6 (0.8-1.8); Bilirubin, Total 0.5 mg/dL (0.1-1.0); Bun/Creatinine Ratio 50.7 (12.0-20.0); Calcium, Blood 9.9 mg/dL (8.5-10.1); Creatinine, Blood 2.03 mg/dL (0.40-1.00); Globulin, Blood 4.6 g/dL (2.2-4.0); Magnesium, Blood 2.4 mg/dL (1.6-2.4); Potassium, Blood 3.8 mmol/L (3.5-5.5); Total Protein, Blood 7.5 g/dL (6.4-8.2)
--- NOTE | 2025-03-01 06:00 | NUR ---
SHIFT SUMMARY PT ALERT AND ORIENTED X4, WAS ANXIOUS AND RESTLESS BEGINNING OF SHIFT RELATED TO PENDING TRANSFER, MOUTHS WORDS FOR COMMUNICATION, LOW GRADE FEVER TMAX 99.2F, VSS, C/O GENERALIZED PAIN X1 AND MEDICATED WITH PRN PAIN MEDS PER EMAR, AND ATIVAN IVP X1 FOR ANXIETY, PLACED BACK ON VENT 20/400/8/40% FROM SPONT, TOLERATING WELL, C/O NAUSEA THIS AM AND MEDICATED WITH ZPFRAN IVP, SHIN PATETN AND DRAINING TO GRAVITY, PICC LINE PATENT AND CLAMPED, PEG PATENT AND CLAMPED, AM LAB RESULTS CALLED TO DR SANTANA AT 0516 WITH NEW ORDERS RECEIEVED SIDE RAILS UP X3 CALL LIGHT IN REACH
--- NOTE | 2025-03-01 11:31 | NUR ---
ISSAC HAS BEEN UNCOMFORTABLE TODAY. SHE HAS BEEN WILLING TO TRY DIFFERENT THINGS BUT HAS BEEN VERY UNCOMFORTABLE. SHE WAS PUT IN RECLINER POSITION IN THE BED, WHICH SHE TOLERATED FAIRLY WELL ONCE THE BED WAS PAST THE 30-45 DEGREE POSITION. HER BACK MAKES HER CRY. 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 SHE WAS LIFTED TO THE CHAIR, HAD HER FEET TOUCH THE GROUND. SHE WAS VERY UNCOMFORTABLE AND LASTED FOR ONLY A COUPLE OF MINUTES. SHE HAS BEEN TURNED TWICE TO TRY TO KEEP HER OFF HER SACRUM. SHE GETS VERY UNCOMFORTABLE AND TURNS HERSELF BACK ONTO HER BACK. SHE HAS BEEN EDUCATED ABOUT THE IMPORTANCE OF STAYING OFF HER BUTTOCKS. REMAINS ON SPONTANEOUS.
--- NOTE | 2025-03-01 12:34 | NUR ---
ISSAC IS SLEEPING ON HER RIGHT SIDE, SHE IS COMFORTABLE, AT BEDSIDE. SHE IS DROPPING HER SATURATION WHILE RIGHT SIDE DOWN TO <90%, HER FIO2 IS INCREASED TO 45% TO MAINTAIN SAT >89%.
[2025-03-01 14:27] LABS: ALBUMIN %,URINE 69.9 %; ALPHA-1 %,URINE 1.1 %; BETA GLOBULIN %,URINE 6.2 %; GAMMA GLOBULIN %,URINE 22.8 %; HOURS COLLECTED Not Provided hr; TOTAL VOLUME Not Provided mL
[2025-03-01] MEDS ORDERED: diphenhydrAMINE HCl 12.5 MG/5 ML 5MLUDC (Alcohol/Dye Free) PT PRN (17:20)
--- NOTE | 2025-03-01 18:18 | NUR ---
ISSAC EMOTIONALLY HAS BEEN BETTER T/O THE SHIFT. SHE REMAINS ON SPONTANEOUS T/O THE DAY. SHE HAS MORE AIR REQUIREMENTS WHEN LAYS ON HER RIGHT SIDE AND OXYGEN WAS TITRATED ACCORDINGLY. HAS BEEN AT BEDSIDE FOR THE MAJORITY OF THE DAY, MORE THAN PREVIOUS DAYS. HE IS INFORMED OF TRANSFER TO [facility] SCHEDULED FOR TOMORROW AFTERNOON AFTER DIALYSIS. SHE HAS BEEN MAKING MORE EFFORTS AT MOVING HER ARMS AND TRYING TO DO MORE LITTLE THINGS FOR HERSELF. COUGH REMAINS PRODUCTIVE OF WHITE THIN RETURN. ONLY TAKEN 2 PAIN TABLETS TODAY AND HAS BEEN GIVEN BENADRYL FOR ITCHING.
[2025-03-02] VITALS (31 sets, daily range): BP systolic 110–142; BP diastolic 8–94
[2025-03-02 05:18] LABS: BASOPHILS ABSOLUTE AUTO 0.08 K/mm3 (0.00-0.23); BASOPHILS PERCENT AUTO 1 % (0-2); EOSINOPHILS ABSOLUTE AUTO 0.32 K/mm3 (0.00-0.68); EOSINOPHILS PERCENT AUTO 3 % (0-6); Hematocrit 25.3 % (33.0-51.0); Hemoglobin 8.1 g/dL (11.5-16.0); IMMATURE GRAN ABSOLUTE AUTO 0.09 K/mm3 (0.00-0.10); IMMATURE GRAN PERCENT AUTO 1 % (0-1); LYMPHOCYTES ABSOLUTE AUTO 1.47 K/mm3 (0.84-5.20); LYMPHOCYTES PERCENT AUTO 16 % (21-46); MONOCYTES ABSOLUTE AUTO 0.71 K/mm3 (0.16-1.47); MONOCYTES PERCENT AUTO 8 % (4-13); Mean Corpuscular Volume 97 fL (80-100); Mean Platelet Volume 9.2 fL (9.1-12.4); NEUTROPHILS ABSOLUTE AUTO 6.73 K/mm3 (1.96-9.15); NEUTROPHILS PERCENT AUTO 72 % (41-73); Platelet Count 447 K/mm3 (150-400); RDW Coefficient Variation 17.1 % (11.7-14.2); RDW Standard Deviation 60.5 fL (35.1-46.3); Red Blood Cell Count 2.61 M/mm3 (3.80-5.20)
[2025-03-02 05:38] LABS: Albumin, Blood 2.8 g/dL (3.4-5.0); Albumin/Globulin Ratio 0.6 (0.8-1.8); Bilirubin, Total 0.4 mg/dL (0.1-1.0); Bun/Creatinine Ratio 60.4 (12.0-20.0); Calcium, Blood 9.9 mg/dL (8.5-10.1); Creatinine, Blood 2.35 mg/dL (0.40-1.00); Globulin, Blood 4.5 g/dL (2.2-4.0); Magnesium, Blood 2.6 mg/dL (1.6-2.4); Phosphorus, Blood 3.9 mg/dL (2.5-4.9); Potassium, Blood 3.8 mmol/L (3.5-5.5); Total Protein, Blood 7.3 g/dL (6.4-8.2)
--- NOTE | 2025-03-02 05:56 | NUR ---
SHIFT SUMAMRY: PT DID WELL OVERNIGHT, SHE IS ABLE TO COMMUNICATE BY MOUTHING WORDS AND MAKES HER NEEDS KNOWN. PT RECIEVED FENTANYL PUSH X2 DIFFERENT TIMES DURING THE NIGHT FOR PAIN AFTER REPOSTIONING. PT RECIEVED A 1X DOSE OF NORCO FOR STATED PAIN, ALONG WITH BENADRYL TO PREVENT ITCHING. PT DID HAVE ONE BOUT OF NAUSEA/VOMITTING AND WAS GIVEN A DOSE OF ZOFRAN WHICH HELPED. PT HAS BEEN OCASSIOANLLY COUGHING. VITALS STABLE THROUGHOUT THE NIGHT. BRIGHT YELLOW URINE OUTPUT TOTAL OF 425ML OVERNIGHT. MEPILEX DRESSING CHANGED ON THE GLUTEAL CHEEKS AND PICTURES TAKEN AND UPDATED IN THE CHART. [facility] HAS CONTINUED TO TREND DOWN, PROVIDER NOTIFIED AND 1 UNIT OF [facility] ORDERED TO BE TRANSFUSED. DIALYSIS SCHEDULED FOR THIS MORNING AND TRASNFER TO [facility] THIS AFTERNOON STILL EXPECTED.
--- NOTE | 2025-03-02 12:10 | NUR ---
AM NOTE... ASSUMED CARE OF PATIENT AT APPROX 0700. PATIENT AWAKE AND ALERT IN BED, MOUTHS WORDS TO COMMUNICATE WITH STAFF. A&OX4, FOLLOWS COMMANDS. TRACH PATIENT ON VENT SP 50%. PATIENT IN SINUS RHYTHM IN THE 90'S. BP STABLE WITH MAPS >65. LAST BM 02/26/25 PER RN NOTE, BUT NOT CHARTED. O2 SATS >95%. SHIN PATIENT AND DRAINING YELLOW URINE TO GRAVITY. PEG TUBE TO LUQ PATENT & CLAMPED.
[2025-03-02 14:57] LABS: HEPATITIS B SURFACE ANTIGEN Negative (Negative)
--- NOTE | 2025-03-02 15:03 | NUR ---
PT TRANSFER TO [facility].... PT LEFT AT 1455 TO [facility] VIA AMBULANCE. ALL PT'S BELONGINGS WERE TAKEN BY THE . PT'S VSS AT THE TIME OF TRANSFER.
[2025-03-03 10:20] LABS: HEPATITIS B SURFACE ANTIBODY 91.02
[2025-03-04 13:00] LABS: HBV CORE ANTIBODIES,TOTAL Positive (Negative)
== END 2025-03-02 14:54 | DRG 4 ==
LOC: ER 19:24 → ICUE 21:19
PROVIDERS: Family Medicine; Hospitalist; Internal Medicine; Internal Medicine Critical Care Medicine; Internal Medicine Nephrology; Student in an Organized Health Care Education/Training Program; ADMIT Internal Medicine
PROC: 5A1955Z Respiratory Ventilation, Greater than 96 Consecutive Hours (ICD-10-PCS; 2025-01-21)
PROC: 3E03329 Introduction of Other Anti-infective into Peripheral Vein, Percutaneous Approach (ICD-10-PCS; 2025-01-21)
PROC: 5A09357 Assistance with Respiratory Ventilation, Less than 24 Consecutive Hours, Continuous Positive Airway Pressure (ICD-10-PCS; 2025-01-21)
PROC: 0BH17EZ Insertion of Endotracheal Airway into Trachea, Via Natural or Artificial Opening (ICD-10-PCS; 2025-01-21)
PROC: 3E033XZ Introduction of Vasopressor into Peripheral Vein, Percutaneous Approach (ICD-10-PCS; 2025-01-22)
PROC: 4A033R1 Measurement of Arterial Saturation, Peripheral, Percutaneous Approach (ICD-10-PCS; 2025-01-22)
PROC: 02HV33Z Insertion of Infusion Device into Superior Vena Cava, Percutaneous Approach (ICD-10-PCS; 2025-01-26)
PROC: 5A1D70Z Performance of Urinary Filtration, Intermittent, Less than 6 Hours Per Day (ICD-10-PCS; 2025-01-26)
PROC: B24BZZ4 Ultrasonography of Heart with Aorta, Transesophageal (ICD-10-PCS; 2025-01-31)
PROC: 3E043XZ Introduction of Vasopressor into Central Vein, Percutaneous Approach (ICD-10-PCS; 2025-02-03)
PROC: 02HV33Z Insertion of Infusion Device into Superior Vena Cava, Percutaneous Approach (ICD-10-PCS; 2025-02-03)
PROC: 0B113F4 Bypass Trachea to Cutaneous with Tracheostomy Device, Percutaneous Approach (ICD-10-PCS; principal; 2025-02-06)
PROC: 02HV33Z Insertion of Infusion Device into Superior Vena Cava, Percutaneous Approach (ICD-10-PCS; 2025-02-06)
PROC: 0BJ08ZZ Inspection of Tracheobronchial Tree, Via Natural or Artificial Opening Endoscopic (ICD-10-PCS; 2025-02-06)
PROC: 2W4 Placement, Anatomical Regions, Packing (ICD-10-PCS; 2025-02-07)
PROC: 30233S1 Transfusion of Nonautologous Globulin into Peripheral Vein, Percutaneous Approach (ICD-10-PCS; 2025-02-11)
PROC: 30233N1 Transfusion of Nonautologous Red Blood Cells into Peripheral Vein, Percutaneous Approach (ICD-10-PCS; 2025-02-13)
PROC: 0B21XFZ Change Tracheostomy Device in Trachea, External Approach (ICD-10-PCS; 2025-02-14)
PROC: 0BJ08ZZ Inspection of Tracheobronchial Tree, Via Natural or Artificial Opening Endoscopic (ICD-10-PCS; 2025-02-14)
PROC: 0B21XFZ Change Tracheostomy Device in Trachea, External Approach (ICD-10-PCS; 2025-02-17)
PROC: 0DH63UZ Insertion of Feeding Device into Stomach, Percutaneous Approach (ICD-10-PCS; 2025-02-17)
PROC: 0JH63XZ Insertion of Tunneled Vascular Access Device into Chest Subcutaneous Tissue and Fascia, Percutaneous Approach (ICD-10-PCS; 2025-02-19)
PROC: 02HV33Z Insertion of Infusion Device into Superior Vena Cava, Percutaneous Approach (ICD-10-PCS; 2025-02-19)
DX: A41.89 Other specified sepsis (principal); I21.3 ST elevation (STEMI) myocardial infarction of unspecified site; J10.08 Influenza due to other identified influenza virus with other specified pneumonia; J80 Acute respiratory distress syndrome; J15.211 Pneumonia due to Methicillin susceptible Staphylococcus aureus; N17.0 Acute kidney failure with tubular necrosis; J10.01 Influenza due to other identified influenza virus with the same other identified influenza virus pneumonia; R65.21 Severe sepsis with septic shock; N18.6 End stage renal disease; E11.641 Type 2 diabetes mellitus with hypoglycemia with coma; D62 Acute posthemorrhagic anemia; E87.1 Hypo-osmolality and hyponatremia; M62.82 Rhabdomyolysis; G61.0 Guillain-Barre syndrome; Z68.42 Body mass index [BMI] 45.0-49.9, adult; E87.20 Acidosis, unspecified; Z99.11 Dependence on respirator [ventilator] status; J95.01 Hemorrhage from tracheostomy stoma; I12.0 Hypertensive chronic kidney disease with stage 5 chronic kidney disease or end stage renal disease; G62.81 Critical illness polyneuropathy; J95.03 Malfunction of tracheostomy stoma; Z99.2 Dependence on renal dialysis; A41.01 Sepsis due to Methicillin susceptible Staphylococcus aureus; I25.10 Atherosclerotic heart disease of native coronary artery without angina pectoris; E11.65 Type 2 diabetes mellitus with hyperglycemia; E87.6 Hypokalemia; E83.42 Hypomagnesemia; E11.42 Type 2 diabetes mellitus with diabetic polyneuropathy; M79.7 Fibromyalgia; R79.1 Abnormal coagulation profile; E66.01 Morbid (severe) obesity due to excess calories; E78.5 Hyperlipidemia, unspecified; F41.9 Anxiety disorder, unspecified; F32.A Depression, unspecified; G89.29 Other chronic pain; D63.1 Anemia in chronic kidney disease; M54.9 Dorsalgia, unspecified; E11.22 Type 2 diabetes mellitus with diabetic chronic kidney disease; E88.09 Other disorders of plasma-protein metabolism, not elsewhere classified; L27.0 Generalized skin eruption due to drugs and medicaments taken internally; D75.838 Other thrombocytosis; E83.39 Other disorders of phosphorus metabolism; E83.51 Hypocalcemia; E87.70 Fluid overload, unspecified; E83.41 Hypermagnesemia; E86.9 Volume depletion, unspecified; T36.1X5A Adverse effect of cephalosporins and other beta-lactam antibiotics, initial encounter; E87.5 Hyperkalemia; E83.52 Hypercalcemia; R74.01 Elevation of levels of liver transaminase levels; R19.7 Diarrhea, unspecified; T45.526A Underdosing of antithrombotic drugs, initial encounter; Z91.138 Patient's unintentional underdosing of medication regimen for other reason; Z87.891 Personal history of nicotine dependence; Z88.8 Allergy status to other drugs, medicaments and biological substances; Z79.84 Long term (current) use of oral hypoglycemic drugs; Z79.82 Long term (current) use of aspirin; Z79.02 Long term (current) use of antithrombotics/antiplatelets; Z79.891 Long term (current) use of opiate analgesic; Z78.1 Physical restraint status
CPT/HCPCS: 0241U; 0528U; 31500; 31720; 32555; 36415; 36430; 36556; 36558; 36569; 36600; 51701; 51702; 70450; 70490; 71045; 71250; 74176; 76770; 76937; 77001; 80048; 80053; 80069; 80076; 80202; 81001; 82140; 82248; 82330; 82374; 82533; 82550; 82565; 82570; 82728; 82803; 82947; 83516; 83605; 83690; 83735; 83880; 83930; 83970; 84100; 84132; 84145; 84156; 84166; 84295; 84300; 84439; 84443; 84484; 84550; 85014; 85018; 85025; 85027; 85379; 85610; 85730; 86039; 86160; 86334; 86335; 86704; 86850; 86900; 86901; 86923; 87040; 87070; 87077; 87086; 87103; 87106; 87147; 87186; 87205; 87305; 87340; 87389; 87449; 87493; 93308; 93312; 93321; 93325; 93970; 94002; 94003; 94640; 94660; 94664; 94667; 94668; 94760; 94762; 96365-59; 96367-59; 96375-59; 97110; 97163; 99152; 99153; 99285-25; A9270; C1750; C1751; C1752; C1769; C1894; J0456; J0461; J0612; J0630; J0690; J0692; J0696; J1459; J1644; J1650; J1815; J1940; J1956; J2060; J2185; J2250; J2371; J2405; J2543; J2704; J2765; J2919; J3010; J3370; J3475; J3480; J7030; J7040; J7042; J7050; J7060; J7070; J7120; J7799; P9016; P9045; P9047

== ENCOUNTER → 2025-06-06 | Outpatient (CLI) | payer OTHER ==
[~2025-06-06] MED LIST changes: -Etomidate 2MG / ML 10ML Vial IV ONE; -Ketamine HCl 100 MG / ML 5ML Vial XX ONE; -Midazolam HCl 1MG / ML 2ML Vial XX ONE; -Phenylephrine HCl 100 MCG/ML-NS 10MLSYR (1MG/10ML) IV ONE; -Propofol 10mg/ml 20 ml Vial (Procedural) IV ONE; -Rocuronium Bromide 10 MG/ML 5ML Injection IV ONE
[2025-06-06 15:55] LABS: Hemoglobin 11.3 g/dL (11.5-16.0)
[2025-06-06 16:49] LABS: Albumin, Blood 2.8 g/dL (3.4-5.0); Anion Gap 4 mmol/L (3-11); Blood Urea Nitrogen 16 mg/dL (8-24); CO2, Blood 31 mmol/L (21-32); Calcium, Blood 8.4 mg/dL (8.5-10.1); Chloride, Blood 103 mmol/L (98-108); Creatinine, Blood 0.53 mg/dL (0.40-1.00); Ferritin, Serum 18 ng/mL (8-252); Glucose, Blood 156 mg/dL (70-99); Phosphorus, Blood 3.6 mg/dL (2.5-4.9); Potassium, Blood 4.5 mmol/L (3.5-5.5); Sodium, Blood 133 mmol/L (136-145); Thyroid Stimulating Hormone 1.270 uIU/mL (0.360-4.800); Total Iron Binding Capacity 210 ug/dL (250-450)
[2025-06-08 10:53] LABS: ANTINUCLEAR AB (ANA),HEP-2,IGG <1:80 (<1:80)
[2025-06-08 17:29] LABS: GBM, IGG MULTIPLEX BEAD ASSAY 2 AU/mL (0-19); MYELOPEROXIDASE (MPO) AB,IGG 1 AU/mL (0-19); SERINE PROTEINASE 3 PR3 AB,IGG 1 AU/mL (0-19)
[2025-06-09 22:22] LABS: ALPHA 1 GLOBULIN 0.28 g/dL (0.19-0.46); ALPHA 2 GLOBULIN 0.70 g/dL (0.48-1.05); BETA GLOBULIN 0.68 g/dL (0.48-1.10); GAMMA 1.00 g/dL (0.62-1.51); IMMUNOFIXATION IFE Done; TOTAL PROTEIN, SERUM 5.5 g/dL (6.3-8.2)
== END ==
LOC: LAB SHORT 15:07 → LAB 15:07
PROVIDERS: Internal Medicine Nephrology
DX: N18.30 Chronic kidney disease, stage 3 unspecified (principal); D63.1 Anemia in chronic kidney disease; N25.81 Secondary hyperparathyroidism of renal origin; E55.9 Vitamin D deficiency, unspecified; E78.00 Pure hypercholesterolemia, unspecified; R76.9 Abnormal immunological finding in serum, unspecified; R94.5 Abnormal results of liver function studies; R94.6 Abnormal results of thyroid function studies; D51.8 Other vitamin B12 deficiency anemias; D52.8 Other folate deficiency anemias; D50.9 Iron deficiency anemia, unspecified; G50.9 Disorder of trigeminal nerve, unspecified
CPT/HCPCS: 80069; 82306; 82607; 82728; 82746; 83516; 83540; 83550; 83970; 84155; 84165; 84443; 85018; 86039; 86334

== ENCOUNTER → 2025-07-13 | Outpatient (CLI) | payer OTHER ==
[2025-07-13 17:39] LABS: Albumin, Blood 3.0 g/dL (3.4-5.0); Anion Gap 4 mmol/L (3-11); Blood Urea Nitrogen 17 mg/dL (8-24); CO2, Blood 33 mmol/L (21-32); Calcium, Blood 8.7 mg/dL (8.5-10.1); Chloride, Blood 104 mmol/L (98-108); Creatinine, Blood 0.41 mg/dL (0.40-1.00); Glucose, Blood 224 mg/dL (70-99); Phosphorus, Blood 3.9 mg/dL (2.5-4.9); Potassium, Blood 4.6 mmol/L (3.5-5.5); Sodium, Blood 136 mmol/L (136-145)
== END ==
LOC: LAB 16:18 → LAB SHORT 16:18
PROVIDERS: Internal Medicine
DX: N18.2 Chronic kidney disease, stage 2 (mild) (principal); D63.1 Anemia in chronic kidney disease; N25.81 Secondary hyperparathyroidism of renal origin; E56.9 Vitamin deficiency, unspecified; R76.9 Abnormal immunological finding in serum, unspecified; R94.5 Abnormal results of liver function studies
CPT/HCPCS: 80069; 85018